=== PATIENT | female | born 1985 | race Caucasian/White ===

== ENCOUNTER 2021-02-05 07:39 | Inpatient (IN) | payer BC, OTHER ==
[2021-02-05] MEDS ORDERED: Sodium Chloride 0.9% 10 ML Syringe FLUSH PRN (08:17)
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
[2021-02-05] MEDS ORDERED: Sodium Chloride 0.9% 2,000 ML IV SCH (08:30)
[2021-02-05 09:06] LABS: CORONAVIRUS COVID-19 NAA NEGATIVE (NEGATIVE)
[2021-02-05 09:55] LABS: HEMOGLOBIN A1C 12.7 %
--- NOTE | 2021-02-05 10:24 | CR ---
Chest: Portable view of the chest was obtained. Comparison: No prior chest x-ray is available. Heart size and mediastinum are normal. Lungs are clear with no acute parenchymal change. No discrete bony abnormality is appreciated. Impression: 1. Nothing acute is seen on portable chest x-ray. Diagnostic code #1
[2021-02-05] MEDS ORDERED: Lactated Ringers 1,000 ML IV ONE ×2 (10:49→12:15)
[2021-02-05] MEDS ORDERED: Sodium Chloride 0.45% with KCl 1,000 ML IV SCH (13:15)
[2021-02-05] MEDS ORDERED: Insulin Regular, Human 100 Units/ML 3 ML Vial IV ONE (13:30)
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
[2021-02-05] MEDS ORDERED: POTASSIUM CHLORIDE IV ONE (14:00)
[2021-02-05] MEDS ORDERED: [UNRECOGNIZED DRUG - OTHER] IV ONE (14:00)
[2021-02-05] MEDS ORDERED: SODIUM BICARBONATE IV ONE (14:00)
[2021-02-05] MEDS: Potassium Chloride 10 MEQ in Premix Bag 1 BAG IV SCH ×5 (17:16→23:13)
[2021-02-05] MEDS: D5 1/2 NS w/ 20 mEq/L KCl 1,000 ML IV SCH ×2 (17:28→22:20)
[2021-02-05] MEDS ORDERED: Potassium Chloride 10 MEQ in Premix Bag 1 BAG IV SCH (19:00)
[2021-02-05] MEDS: Ondansetron 4 MG/2 ML SDV IV PRN (19:17)
--- NOTE | 2021-02-05 19:27 | PCM.PRNOTE ---
- Free Text/Narrative Note: Date: 02/05/2021 Procedure: right femoral central line placement Indication: diabetic ketoacidosis with difficult IV access Surgeon: Malick López MD Detailed Report: Consent was obtained from family. The right groin was prepped and draped in sterile fashion. The right femoral artery was readily palpable. Laterl to this, a dermal wheal was created with 5 cc 1% lidocaine. A large needle and a syringe was used to cannulate the femoral vein and dark venous blood was aspirated on second pass. A guidewire was threaded through the needle with no resistance. The needle was taken out over the wire and a small stab incision made at the insertion site at the skin. A dilator was passed over the wire, and then a tri ple lumen 7F catheter was placed over the wire. The wire was withdrawn and each port flushed and nalini back without issue. The line was secured with a few silk sutures placed at the skin. A sterile dressing was applied. The patient tolerated the procedure well.
[2021-02-06] MEDS: Potassium Chloride 10 MEQ in Premix Bag 1 BAG IV SCH ×17 (00:17→23:34)
[2021-02-06] MEDS ORDERED: Sodium Chloride 0.9% 100 ML ONE (01:20)
[2021-02-06] MEDS ORDERED: Magnesium Sulfate/Water 4 GM in Premix Bag 1 BAG IV ONE ×2 (01:30→03:00)
[2021-02-06] MEDS: Ondansetron 4 MG/2 ML SDV IV PRN ×2 (01:37→10:06)
[2021-02-06] MEDS: D5 1/2 NS w/ 20 mEq/L KCl 1,000 ML IV SCH ×2 (02:25→10:06)
[2021-02-06] MEDS ORDERED: Potassium Chloride 10 MEQ in Premix Bag 1 BAG IV SCH (02:45)
--- NOTE | 2021-02-06 08:51 | PCM.PN ---
- General Info Date of Service: 02/06/21 Admission Dx/Problem (Free Text): Admission Diagnosis/Problem Admission Diagnosis/Problem Diabetic ketoacidosis Subjective Update: Patient is doing much better this morning. VBG still shows a pH of 7.21 with a bicarb of 11, but again improving. She is more alert and oriented today. She denies any pain. She is n.p.o. Functional Status: Reports: Pain Controlled - Review of Systems General: Reports: Weakness, Fatigue Pulmonary: Reports: Shortness of Breath Cardiovascular: Reports: No Symptoms Gastrointestinal: Reports: No Symptoms Musculoskeletal: Reports: No Symptoms Neurological: Reports: No Symptoms - Patient Data Vitals - Most Recent: Last Vital Signs Temp 98.1 F 02/06/21 08:00 Pulse 89 02/06/21 07:00 Resp 18 02/06/21 08:01 BP 115/66 02/06/21 08:01 Pulse Ox 100 02/06/21 08:01 Weight - Most Recent: 171 lb 6.4 oz I&O - Last 24 Hours: Intake & Output 02/05/21 02/06/21 02/06/21 22:59 06:59 14:59 Intake Total 1676 2920 Output Total 2905 2275 Balance -1229 645 Lab Results Last 24 Hours: Laboratory Results - last 24 hr 02/05/21 02/05/21 02/05/21 Range/Units 08:00 08:00 08:17 WBC 13.54 H (3.98-10.04) K/mm3 RBC 5.61 H (3.98-5.22) M/mm3 Hgb 15.1 D (11.2-15.7) gm/dl Hct 44.8 (34.1-44.9) % MCV 79.9 (79.4-94.8) fl MCH 26.9 (25.6-32.2) pg MCHC 33.7 (32.2-35.5) g/dl RDW Std Deviation 47.3 H (36.4-46.3) fL Plt Count 160 L (182-369) K/mm3 MPV 10.9 (9.4-12.3) fl Neut % (Auto) 77.9 H (34.0-71.1) % Lymph % (Auto) 11.9 L (19.3-51.7) % [place] % (Auto) 7.9 (4.7-12.5) % Eos % (Auto) 0.3 L (0.7-5.8) Baso % (Auto) 0.5 (0.1-1.2) % Neut # (Auto) 10.55 H (1.56-6.13) K/mm3 Lymph # (Auto) 1.61 (1.18-3.74) K/mm3 [place] # (Auto) 1.07 H (0.24-0.36) K/mm3 Eos # (Auto) 0.04 (0.04-0.36) K/mm3 Baso # (Auto) 0.07 (0.01-0.08) K/mm3 Puncture Site ABG pH (7.35-7.45) ABG pCO2 (35.0-45.0) mmHg ABG pO2 (80.0-100.0) mmHg ABG HCO3 (22.0-26.0) meq/L ABG O2 Saturation (96.0-97.0) % ABG Base Excess (-2-2.0) Rashid Test VBG pH (7.30-7.40) VBG pCO2 (41-51) mmHg VBG pO2 (40-80) mmHG VBG HCO3 (22-26) meq/L VBG O2 Saturation VBG Base Excess (-4.0-2.0) O2 Delivery Device Sodium 135 L (136-145) mEq/L Potassium 3.9 (3.5-5.1) mEq/L Chloride 101 (98-107) mEq/L Carbon Dioxide 5 L* (21-32) mEq/L Anion Gap 32.9 H (5-15) BUN 15 (7-18) mg/dL Creatinine 1.0 (0.55-1.02) mg/dL Est Cr Clr Drug Dosing 70.66 mL/min Estimated GFR (MDRD) > 60 (>60) mL/min BUN/Creatinine Ratio 15.0 (14-18) Glucose 421 H* (70-99) mg/dL POC Glucose (70-99) mg/dL Hemoglobin A1c ( - 5.6) % Serum Osmolality 314 H (280-300) mosm/kg Calcium 8.6 (8.5-10.1) mg/dL Phosphorus (2.6-4.7) mg/dL Magnesium 2.2 (1.8-2.4) mg/dL Total Bilirubin 0.4 (0.2-1.0) mg/dL AST 16 (15-37) U/L ALT 20 (14-59) U/L Alkaline Phosphatase 164 H (46-116) U/L Total Protein 7.8 (6.4-8.2) g/dl Albumin 4.4 (3.4-5.0) g/dl Globulin 3.4 gm/dL Albumin/Globulin Ratio 1.3 (1-2) TSH 3rd Generation (0.358-3.74) uIU/mL Urine Color (Yellow) Urine Appearance (Clear) Urine pH (5.0-8.0) Ur Specific [place] (1.005-1.030) Urine Protein (Negative) Urine Glucose (UA) (Negative) Urine Ketones (Negative) Urine Occult Blood (Negative) Urine Nitrite (Negative) Urine Bilirubin (Negative) Urine Urobilinogen (0.2-1.0) Ur Leukocyte Esterase (Negative) Urine RBC (0-5) /hpf Urine WBC (0-5) /hpf Ur Squamous Epith Cells (0-5) /hpf Urine Bacteria (FEW) /hpf Urine Mucus (FEW) /hpf Urine Opiates Screen (BGYAIG=604) Ur Buprenorphine Scrn (CUTOFF=10) Ur Oxycodone Screen (CWK6BU=154) Urine Methadone Screen (QBSMYZ=998) Ur Propoxyphene Screen (EETSYZ=052) Ur Barbiturates Screen (IIEPGU=510) Ur Tricyclics Screen (HORDWC=399) Ur Phencyclidine Scrn (CUTOFF=25) Ur Amphetamine Screen (NKAQBB=389) U Methamphetamines Scrn (QDPOHW=782) U Benzodiazepines Scrn (QDUSGT=943) U Cocaine Metab Screen (BVIYTL=844) U Marijuana (THC) Screen (CUTOFF=50) Ketones 11.22 (0.0-0.3) mM Influenza Type A RNA (NEGATIVE) RSV RNA (INAAT) (NEGATIVE) Influenza Type B RNA (NEGATIVE) SARS-CoV-2 RNA (ELIDIA) (NEGATIVE) 02/05/21 02/05/21 02/05/21 Range/Units 08:24 08:34 09:49 WBC (3.98-10.04) K/mm3 RBC (3.98-5.22) M/mm3 Hgb (11.2-15.7) gm/dl Hct (34.1-44.9) % MCV (79.4-94.8) fl MCH (25.6-32.2) pg MCHC (32.2-35.5) g/dl RDW Std Deviation (36.4-46.3) fL Plt Count (182-369) K/mm3 MPV (9.4-12.3) fl Neut % (Auto) (34.0-71.1) % Lymph % (Auto) (19.3-51.7) % [place] % (Auto) (4.7-12.5) % Eos % (Auto) (0.7-5.8) Baso % (Auto) (0.1-1.2) % Neut # (Auto) (1.56-6.13) K/mm3 Lymph # (Auto) (1.18-3.74) K/mm3 [place] # (Auto) (0.24-0.36) K/mm3 Eos # (Auto) (0.04-0.36) K/mm3 Baso # (Auto) (0.01-0.08) K/mm3 Puncture Site Rt radial ABG pH 6.91 L* (7.35-7.45) ABG pCO2 7.4 L* (35.0-45.0) mmHg ABG pO2 129.0 H (80.0-100.0) mmHg ABG HCO3 1.4 L (22.0-26.0) meq/L ABG O2 Saturation 98.0 H (96.0-97.0) % ABG Base Excess -34.0 L (-2-2.0) Rashid Test Positive VBG pH (7.30-7.40) VBG pCO2 (41-51) mmHg VBG pO2 (40-80) mmHG VBG HCO3 (22-26) meq/L VBG O2 Saturation VBG Base Excess (-4.0-2.0) O2 Delivery Device Room air Sodium (136-145) mEq/L Potassium (3.5-5.1) mEq/L Chloride (98-107) mEq/L Carbon Dioxide (21-32) mEq/L Anion Gap (5-15) BUN (7-18) mg/dL Creatinine (0.55-1.02) mg/dL Est Cr Clr Drug Dosing mL/min Estimated GFR (MDRD) (>60) mL/min BUN/Creatinine Ratio (14-18) Glucose (70-99) mg/dL POC Glucose (70-99) mg/dL Hemoglobin A1c 12.7 H ( - 5.6) % Serum Osmolality (280-300) mosm/kg Calcium (8.5-10.1) mg/dL Phosphorus (2.6-4.7) mg/dL Magnesium (1.8-2.4) mg/dL Total Bilirubin (0.2-1.0) mg/dL AST (15-37) U/L ALT (14-59) U/L Alkaline Phosphatase (46-116) U/L Total Protein (6.4-8.2) g/dl Albumin (3.4-5.0) g/dl Globulin gm/dL Albumin/Globulin Ratio (1-2) TSH 3rd Generation (0.358-3.74) uIU/mL Urine Color (Yellow) Urine Appearance (Clear) Urine pH (5.0-8.0) Ur Specific [place] (1.005-1.030) Urine Protein (Negative) Urine Glucose (UA) (Negative) Urine Ketones (Negative) Urine Occult Blood (Negative) Urine Nitrite (Negative) Urine Bilirubin (Negative) Urine Urobilinogen (0.2-1.0) Ur Leukocyte Esterase (Negative) Urine RBC (0-5) /hpf Urine WBC (0-5) /hpf Ur Squamous Epith Cells (0-5) /hpf Urine Bacteria (FEW) /hpf Urine Mucus (FEW) /hpf Urine Opiates Screen (TSNCPK=205) Ur Buprenorphine Scrn (CUTOFF=10) Ur Oxycodone Screen (LDI5NO=109) Urine Methadone Screen (VMXDNI=861) Ur Propoxyphene Screen (BMOSEZ=746) Ur Barbiturates Screen (NEMAEE=124) Ur Tricyclics Screen (WGZTAY=060) Ur Phencyclidine Scrn (CUTOFF=25) Ur Amphetamine Screen (MPDRJI=464) U Methamphetamines Scrn (PWWRFP=109) U Benzodiazepines Scrn (RVJDLP=438) U Cocaine Metab Screen (QIQNGD=912) U Marijuana (THC) Screen (CUTOFF=50) Ketones (0.0-0.3) mM Influenza Type A RNA Negative (NEGATIVE) RSV RNA (INAAT) Negative (NEGATIVE) Influenza Type B RNA Negative (NEGATIVE) SARS-CoV-2 RNA (ELIDIA) Negative (NEGATIVE) 02/05/21 02/05/21 02/05/21 Range/Units 10:15 10:15 10:55 WBC (3.98-10.04) K/mm3 RBC (3.98-5.22) M/mm3 Hgb (11.2-15.7) gm/dl Hct (34.1-44.9) % MCV (79.4-94.8) fl MCH (25.6-32.2) pg MCHC (32.2-35.5) g/dl RDW Std Deviation (36.4-46.3) fL Plt Count (182-369) K/mm3 MPV (9.4-12.3) fl Neut % (Auto) (34.0-71.1) % Lymph % (Auto) (19.3-51.7) % [place] % (Auto) (4.7-12.5) % Eos % (Auto) (0.7-5.8) Baso % (Auto) (0.1-1.2) % Neut # (Auto) (1.56-6.13) K/mm3 Lymph # (Auto) (1.18-3.74) K/mm3 [place] # (Auto) (0.24-0.36) K/mm3 Eos # (Auto) (0.04-0.36) K/mm3 Baso # (Auto) (0.01-0.08) K/mm3 Puncture Site ABG pH (7.35-7.45) ABG pCO2 (35.0-45.0) mmHg ABG pO2 (80.0-100.0) mmHg ABG HCO3 (22.0-26.0) meq/L ABG O2 Saturation (96.0-97.0) % ABG Base Excess (-2-2.0) Rashid Test VBG pH (7.30-7.40) VBG pCO2 (41-51) mmHg VBG pO2 (40-80) mmHG VBG HCO3 (22-26) meq/L VBG O2 Saturation VBG Base Excess (-4.0-2.0) O2 Delivery Device Sodium (136-145) mEq/L Potassium (3.5-5.1) mEq/L Chloride (98-107) mEq/L Carbon Dioxide (21-32) mEq/L Anion Gap (5-15) BUN (7-18) mg/dL Creatinine (0.55-1.02) mg/dL Est Cr Clr Drug Dosing mL/min Estimated GFR (MDRD) (>60) mL/min BUN/Creatinine Ratio (14-18) Glucose (70-99) mg/dL POC Glucose 336 H (70-99) mg/dL Hemoglobin A1c ( - 5.6) % Serum Osmolality (280-300) mosm/kg Calcium (8.5-10.1) mg/dL Phosphorus (2.6-4.7) mg/dL Magnesium (1.8-2.4) mg/dL Total Bilirubin (0.2-1.0) mg/dL AST (15-37) U/L ALT (14-59) U/L Alkaline Phosphatase (46-116) U/L Total Protein (6.4-8.2) g/dl Albumin (3.4-5.0) g/dl Globulin gm/dL Albumin/Globulin Ratio (1-2) TSH 3rd Generation (0.358-3.74) uIU/mL Urine Color Yellow (Yellow) Urine Appearance Clear (Clear) Urine pH 5.5 (5.0-8.0) Ur Specific [place] > or = 1.030 (1.005-1.030) Urine Protein 2+ H (Negative) Urine Glucose (UA) 2+ H (Negative) Urine Ketones 4+ H (Negative) Urine Occult Blood 2+ H (Negative) Urine Nitrite Negative (Negative) Urine Bilirubin Negative (Negative) Urine Urobilinogen 0.2 (0.2-1.0) Ur Leukocyte Esterase Negative (Negative) Urine RBC 5-10 H (0-5) /hpf Urine WBC 0-5 (0-5) /hpf Ur Squamous Epith Cells 0-5 (0-5) /hpf Urine Bacteria Moderate H (FEW) /hpf Urine Mucus Few (FEW) /hpf Urine Opiates Screen Negative (LJQETY=668) Ur Buprenorphine Scrn Negative (CUTOFF=10) Ur Oxycodone Screen Negative (QIQ7LP=684) Urine Methadone Screen Negative (IYDPED=220) Ur Propoxyphene Screen Negative (WPRECY=242) Ur Barbiturates Screen Negative (GJNZMP=748) Ur Tricyclics Screen Negative (MBFHQP=991) Ur Phencyclidine Scrn Negative (CUTOFF=25) Ur Amphetamine Screen Negative (FCWWNM=674) U Methamphetamines Scrn Negative (RDTDQT=918) U Benzodiazepines Scrn Negative (MESHGR=695) U Cocaine Metab Screen Negative (VKFBDW=086) U Marijuana (THC) Screen Negative (CUTOFF=50) Ketones (0.0-0.3) mM Influenza Type A RNA (NEGATIVE) RSV RNA (INAAT) (NEGATIVE) Influenza Type B RNA (NEGATIVE) SARS-CoV-2 RNA (ELIDIA) (NEGATIVE) 02/05/21 02/05/21 02/05/21 Range/Units 12:14 13:39 13:39 WBC (3.98-10.04) K/mm3 RBC (3.98-5.22) M/mm3 Hgb (11.2-15.7) gm/dl Hct (34.1-44.9) % MCV (79.4-94.8) fl MCH (25.6-32.2) pg MCHC (32.2-35.5) g/dl RDW Std Deviation (36.4-46.3) fL Plt Count (182-369) K/mm3 MPV (9.4-12.3) fl Neut % (Auto) (34.0-71.1) % Lymph % (Auto) (19.3-51.7) % [place] % (Auto) (4.7-12.5) % Eos % (Auto) (0.7-5.8) Baso % (Auto) (0.1-1.2) % Neut # (Auto) (1.56-6.13) K/mm3 Lymph # (Auto) (1.18-3.74) K/mm3 [place] # (Auto) (0.24-0.36) K/mm3 Eos # (Auto) (0.04-0.36) K/mm3 Baso # (Auto) (0.01-0.08) K/mm3 Puncture Site ABG pH (7.35-7.45) ABG pCO2 (35.0-45.0) mmHg ABG pO2 (80.0-100.0) mmHg ABG HCO3 (22.0-26.0) meq/L ABG O2 Saturation (96.0-97.0) % ABG Base Excess (-2-2.0) Rashid Test VBG pH 6.88 L (7.30-7.40) VBG pCO2 (41-51) mmHg VBG pO2 (40-80) mmHG VBG HCO3 (22-26) meq/L VBG O2 Saturation VBG Base Excess (-4.0-2.0) O2 Delivery Device Sodium 135 L (136-145) mEq/L Potassium 3.5 (3.5-5.1) mEq/L Chloride 106 (98-107) mEq/L Carbon Dioxide 3 L* (21-32) mEq/L Anion Gap 29.5 H (5-15) BUN 13 (7-18) mg/dL Creatinine 0.8 (0.55-1.02) mg/dL Est Cr Clr Drug Dosing 88.32 mL/min Estimated GFR (MDRD) > 60 (>60) mL/min BUN/Creatinine Ratio 16.3 (14-18) Glucose 349 H (70-99) mg/dL POC Glucose 326 H (70-99) mg/dL Hemoglobin A1c ( - 5.6) % Serum Osmolality (280-300) mosm/kg Calcium 7.2 L (8.5-10.1) mg/dL Phosphorus 2.8 (2.6-4.7) mg/dL Magnesium 1.8 (1.8-2.4) mg/dL Total Bilirubin (0.2-1.0) mg/dL AST (15-37) U/L ALT (14-59) U/L Alkaline Phosphatase (46-116) U/L Total Protein (6.4-8.2) g/dl Albumin (3.4-5.0) g/dl Globulin gm/dL Albumin/Globulin Ratio (1-2) TSH 3rd Generation (0.358-3.74) uIU/mL Urine Color (Yellow) Urine Appearance (Clear) Urine pH (5.0-8.0) Ur Specific [place] (1.005-1.030) Urine Protein (Negative) Urine Glucose (UA) (Negative) Urine Ketones (Negative) Urine Occult Blood (Negative) Urine Nitrite (Negative) Urine Bilirubin (Negative) Urine Urobilinogen (0.2-1.0) Ur Leukocyte Esterase (Negative) Urine RBC (0-5) /hpf Urine WBC (0-5) /hpf Ur Squamous Epith Cells (0-5) /hpf Urine Bacteria (FEW) /hpf Urine Mucus (FEW) /hpf Urine Opiates Screen (YTANQZ=610) Ur Buprenorphine Scrn (CUTOFF=10) Ur Oxycodone Screen (GCO1MZ=028) Urine Methadone Screen (CJXKTD=938) Ur Propoxyphene Screen (ETHQYI=440) Ur Barbiturates Screen (BZZUFJ=969) Ur Tricyclics Screen (SJIIZN=999) Ur Phencyclidine Scrn (CUTOFF=25) Ur Amphetamine Screen (VURCTE=333) U Methamphetamines Scrn (NODEMY=255) U Benzodiazepines Scrn (SUMRXH=249) U Cocaine Metab Screen (NBKART=802) U Marijuana (THC) Screen (CUTOFF=50) Ketones (0.0-0.3) mM Influenza Type A RNA (NEGATIVE) RSV RNA (INAAT) (NEGATIVE) Influenza Type B RNA (NEGATIVE) SARS-CoV-2 RNA (ELIDIA) (NEGATIVE) 02/05/21 02/05/21 02/05/21 Range/Units 14:36 16:01 17:03 WBC (3.98-10.04) K/mm3 RBC (3.98-5.22) M/mm3 Hgb (11.2-15.7) gm/dl Hct (34.1-44.9) % MCV (79.4-94.8) fl MCH (25.6-32.2) pg MCHC (32.2-35.5) g/dl RDW Std Deviation (36.4-46.3) fL Plt Count (182-369) K/mm3 MPV (9.4-12.3) fl Neut % (Auto) (34.0-71.1) % Lymph % (Auto) (19.3-51.7) % [place] % (Auto) (4.7-12.5) % Eos % (Auto) (0.7-5.8) Baso % (Auto) (0.1-1.2) % Neut # (Auto) (1.56-6.13) K/mm3 Lymph # (Auto) (1.18-3.74) K/mm3 [place] # (Auto) (0.24-0.36) K/mm3 Eos # (Auto) (0.04-0.36) K/mm3 Baso # (Auto) (0.01-0.08) K/mm3 Puncture Site ABG pH (7.35-7.45) ABG pCO2 (35.0-45.0) mmHg ABG pO2 (80.0-100.0) mmHg ABG HCO3 (22.0-26.0) meq/L ABG O2 Saturation (96.0-97.0) % ABG Base Excess (-2-2.0) Rashid Test VBG pH (7.30-7.40) VBG pCO2 (41-51) mmHg VBG pO2 (40-80) mmHG VBG HCO3 (22-26) meq/L VBG O2 Saturation VBG Base Excess (-4.0-2.0) O2 Delivery Device Sodium (136-145) mEq/L Potassium (3.5-5.1) mEq/L Chloride (98-107) mEq/L Carbon Dioxide (21-32) mEq/L Anion Gap (5-15) BUN (7-18) mg/dL Creatinine (0.55-1.02) mg/dL Est Cr Clr Drug Dosing mL/min Estimated GFR (MDRD) (>60) mL/min BUN/Creatinine Ratio (14-18) Glucose (70-99) mg/dL POC Glucose 302 H 228 H 171 H (70-99) mg/dL Hemoglobin A1c ( - 5.6) % Serum Osmolality (280-300) mosm/kg Calcium (8.5-10.1) mg/dL Phosphorus (2.6-4.7) mg/dL Magnesium (1.8-2.4) mg/dL Total Bilirubin (0.2-1.0) mg/dL AST (15-37) U/L ALT (14-59) U/L Alkaline Phosphatase (46-116) U/L Total Protein (6.4-8.2) g/dl Albumin (3.4-5.0) g/dl Globulin gm/dL Albumin/Globulin Ratio (1-2) TSH 3rd Generation (0.358-3.74) uIU/mL Urine Color (Yellow) Urine Appearance (Clear) Urine pH (5.0-8.0) Ur Specific [place] (1.005-1.030) Urine Protein (Negative) Urine Glucose (UA) (Negative) Urine Ketones (Negative) Urine Occult Blood (Negative) Urine Nitrite (Negative) Urine Bilirubin (Negative) Urine Urobilinogen (0.2-1.0) Ur Leukocyte Esterase (Negative) Urine RBC (0-5) /hpf Urine WBC (0-5) /hpf Ur Squamous Epith Cells (0-5) /hpf Urine Bacteria (FEW) /hpf Urine Mucus (FEW) /hpf Urine Opiates Screen (DLRSSC=458) Ur Buprenorphine Scrn (CUTOFF=10) Ur Oxycodone Screen (NNS5CF=004) Urine Methadone Screen (KGKHAE=214) Ur Propoxyphene Screen (HDCXWD=030) Ur Barbiturates Screen (VWFMWH=714) Ur Tricyclics Screen (TBCACF=874) Ur Phencyclidine Scrn (CUTOFF=25) Ur Amphetamine Screen (EBTDMC=867) U Methamphetamines Scrn (RDAIKV=474) U Benzodiazepines Scrn (LXFMDU=671) U Cocaine Metab Screen (RWSKUE=833) U Marijuana (THC) Screen (CUTOFF=50) Ketones (0.0-0.3) mM Influenza Type A RNA (NEGATIVE) RSV RNA (INAAT) (NEGATIVE) Influenza Type B RNA (NEGATIVE) SARS-CoV-2 RNA (ELIDIA) (NEGATIVE) 02/05/21 02/05/21 02/05/21 Range/Units 17:22 17:54 17:54 WBC (3.98-10.04) K/mm3 RBC (3.98-5.22) M/mm3 Hgb (11.2-15.7) gm/dl Hct (34.1-44.9) % MCV (79.4-94.8) fl MCH (25.6-32.2) pg MCHC (32.2-35.5) g/dl RDW Std Deviation (36.4-46.3) fL Plt Count (182-369) K/mm3 MPV (9.4-12.3) fl Neut % (Auto) (34.0-71.1) % Lymph % (Auto) (19.3-51.7) % [place] % (Auto) (4.7-12.5) % Eos % (Auto) (0.7-5.8) Baso % (Auto) (0.1-1.2) % Neut # (Auto) (1.56-6.13) K/mm3 Lymph # (Auto) (1.18-3.74) K/mm3 [place] # (Auto) (0.24-0.36) K/mm3 Eos # (Auto) (0.04-0.36) K/mm3 Baso # (Auto) (0.01-0.08) K/mm3 Puncture Site ABG pH (7.35-7.45) ABG pCO2 (35.0-45.0) mmHg ABG pO2 (80.0-100.0) mmHg ABG HCO3 (22.0-26.0) meq/L ABG O2 Saturation (96.0-97.0) % ABG Base Excess (-2-2.0) Rashid Test VBG pH 7.04 L (7.30-7.40) VBG pCO2 (41-51) mmHg VBG pO2 (40-80) mmHG VBG HCO3 (22-26) meq/L VBG O2 Saturation VBG Base Excess (-4.0-2.0) O2 Delivery Device Sodium 140 (136-145) mEq/L Potassium 2.8 L (3.5-5.1) mEq/L Chloride 107 (98-107) mEq/L Carbon Dioxide 5 L* (21-32) mEq/L Anion Gap 30.8 H (5-15) BUN 12 (7-18) mg/dL Creatinine 0.8 (0.55-1.02) mg/dL Est Cr Clr Drug Dosing 88.32 mL/min Estimated GFR (MDRD) > 60 (>60) mL/min BUN/Creatinine Ratio 15.0 (14-18) Glucose 182 H (70-99) mg/dL POC Glucose 161 H (70-99) mg/dL Hemoglobin A1c ( - 5.6) % Serum Osmolality (280-300) mosm/kg Calcium 7.6 L (8.5-10.1) mg/dL Phosphorus (2.6-4.7) mg/dL Magnesium 1.8 (1.8-2.4) mg/dL Total Bilirubin (0.2-1.0) mg/dL AST (15-37) U/L ALT (14-59) U/L Alkaline Phosphatase (46-116) U/L Total Protein (6.4-8.2) g/dl Albumin (3.4-5.0) g/dl Globulin gm/dL Albumin/Globulin Ratio (1-2) TSH 3rd Generation (0.358-3.74) uIU/mL Urine Color (Yellow) Urine Appearance (Clear) Urine pH (5.0-8.0) Ur Specific [place] (1.005-1.030) Urine Protein (Negative) Urine Glucose (UA) (Negative) Urine Ketones (Negative) Urine Occult Blood (Negative) Urine Nitrite (Negative) Urine Bilirubin (Negative) Urine Urobilinogen (0.2-1.0) Ur Leukocyte Esterase (Negative) Urine RBC (0-5) /hpf Urine WBC (0-5) /hpf Ur Squamous Epith Cells (0-5) /hpf Urine Bacteria (FEW) /hpf Urine Mucus (FEW) /hpf Urine Opiates Screen (QTJDYV=726) Ur Buprenorphine Scrn (CUTOFF=10) Ur Oxycodone Screen (SKE9ZW=946) Urine Methadone Screen (KMYELH=078) Ur Propoxyphene Screen (RFSIVB=959) Ur Barbiturates Screen (XJOXDV=571) Ur Tricyclics Screen (SVINWX=886) Ur Phencyclidine Scrn (CUTOFF=25) Ur Amphetamine Screen (MMKQFN=192) U Methamphetamines Scrn (CAGGRX=769) U Benzodiazepines Scrn (CSNRLE=707) U Cocaine Metab Screen (TFNQQT=157) U Marijuana (THC) Screen (CUTOFF=50) Ketones (0.0-0.3) mM Influenza Type A RNA (NEGATIVE) RSV RNA (INAAT) (NEGATIVE) Influenza Type B RNA (NEGATIVE) SARS-CoV-2 RNA (ELIDIA) (NEGATIVE) 02/05/21 02/05/21 02/05/21 Range/Units 18:54 20:03 21:08 WBC (3.98-10.04) K/mm3 RBC (3.98-5.22) M/mm3 Hgb (11.2-15.7) gm/dl Hct (34.1-44.9) % MCV (79.4-94.8) fl MCH (25.6-32.2) pg MCHC (32.2-35.5) g/dl RDW Std Deviation (36.4-46.3) fL Plt Count (182-369) K/mm3 MPV (9.4-12.3) fl Neut % (Auto) (34.0-71.1) % Lymph % (Auto) (19.3-51.7) % [place] % (Auto) (4.7-12.5) % Eos % (Auto) (0.7-5.8) Baso % (Auto) (0.1-1.2) % Neut # (Auto) (1.56-6.13) K/mm3 Lymph # (Auto) (1.18-3.74) K/mm3 [place] # (Auto) (0.24-0.36) K/mm3 Eos # (Auto) (0.04-0.36) K/mm3 Baso # (Auto) (0.01-0.08) K/mm3 Puncture Site ABG pH (7.35-7.45) ABG pCO2 (35.0-45.0) mmHg ABG pO2 (80.0-100.0) mmHg ABG HCO3 (22.0-26.0) meq/L ABG O2 Saturation (96.0-97.0) % ABG Base Excess (-2-2.0) Rashid Test VBG pH (7.30-7.40) VBG pCO2 (41-51) mmHg VBG pO2 (40-80) mmHG VBG HCO3 (22-26) meq/L VBG O2 Saturation VBG Base Excess (-4.0-2.0) O2 Delivery Device Sodium (136-145) mEq/L Potassium (3.5-5.1) mEq/L Chloride (98-107) mEq/L Carbon Dioxide (21-32) mEq/L Anion Gap (5-15) BUN (7-18) mg/dL Creatinine (0.55-1.02) mg/dL Est Cr Clr Drug Dosing mL/min Estimated GFR (MDRD) (>60) mL/min BUN/Creatinine Ratio (14-18) Glucose (70-99) mg/dL POC Glucose 171 H 206 H 223 H (70-99) mg/dL Hemoglobin A1c ( - 5.6) % Serum Osmolality (280-300) mosm/kg Calcium (8.5-10.1) mg/dL Phosphorus (2.6-4.7) mg/dL Magnesium (1.8-2.4) mg/dL Total Bilirubin (0.2-1.0) mg/dL AST (15-37) U/L ALT (14-59) U/L Alkaline Phosphatase (46-116) U/L Total Protein (6.4-8.2) g/dl Albumin (3.4-5.0) g/dl Globulin gm/dL Albumin/Globulin Ratio (1-2) TSH 3rd Generation (0.358-3.74) uIU/mL Urine Color (Yellow) Urine Appearance (Clear) Urine pH (5.0-8.0) Ur Specific [place] (1.005-1.030) Urine Protein (Negative) Urine Glucose (UA) (Negative) Urine Ketones (Negative) Urine Occult Blood (Negative) Urine Nitrite (Negative) Urine Bilirubin (Negative) Urine Urobilinogen (0.2-1.0) Ur Leukocyte Esterase (Negative) Urine RBC (0-5) /hpf Urine WBC (0-5) /hpf Ur Squamous Epith Cells (0-5) /hpf Urine Bacteria (FEW) /hpf Urine Mucus (FEW) /hpf Urine Opiates Screen (XZCLFH=310) Ur Buprenorphine Scrn (CUTOFF=10) Ur Oxycodone Screen (BZY9NN=381) Urine Methadone Screen (UCMXDE=766) Ur Propoxyphene Screen (HRBYIP=197) Ur Barbiturates Screen (MKNEUB=708) Ur Tricyclics Screen (UWQSHM=667) Ur Phencyclidine Scrn (CUTOFF=25) Ur Amphetamine Screen (RZIIBM=477) U Methamphetamines Scrn (DVRVQG=496) U Benzodiazepines Scrn (HKSXPE=910) U Cocaine Metab Screen (VGEPYC=992) U Marijuana (THC) Screen (CUTOFF=50) Ketones (0.0-0.3) mM Influenza Type A RNA (NEGATIVE) RSV RNA (INAAT) (NEGATIVE) Influenza Type B RNA (NEGATIVE) SARS-CoV-2 RNA (ELIDIA) (NEGATIVE) 02/05/21 02/05/21 02/05/21 Range/Units 21:37 22:07 23:03 WBC (3.98-10.04) K/mm3 RBC (3.98-5.22) M/mm3 Hgb (11.2-15.7) gm/dl Hct (34.1-44.9) % MCV (79.4-94.8) fl MCH (25.6-32.2) pg MCHC (32.2-35.5) g/dl RDW Std Deviation (36.4-46.3) fL Plt Count (182-369) K/mm3 MPV (9.4-12.3) fl Neut % (Auto) (34.0-71.1) % Lymph % (Auto) (19.3-51.7) % [place] % (Auto) (4.7-12.5) % Eos % (Auto) (0.7-5.8) Baso % (Auto) (0.1-1.2) % Neut # (Auto) (1.56-6.13) K/mm3 Lymph # (Auto) (1.18-3.74) K/mm3 [place] # (Auto) (0.24-0.36) K/mm3 Eos # (Auto) (0.04-0.36) K/mm3 Baso # (Auto) (0.01-0.08) K/mm3 Puncture Site ABG pH (7.35-7.45) ABG pCO2 (35.0-45.0) mmHg ABG pO2 (80.0-100.0) mmHg ABG HCO3 (22.0-26.0) meq/L ABG O2 Saturation (96.0-97.0) % ABG Base Excess (-2-2.0) Rashid Test VBG pH (7.30-7.40) VBG pCO2 (41-51) mmHg VBG pO2 (40-80) mmHG VBG HCO3 (22-26) meq/L VBG O2 Saturation VBG Base Excess (-4.0-2.0) O2 Delivery Device Sodium 137 (136-145) mEq/L Potassium 3.1 L (3.5-5.1) mEq/L Chloride 109 H (98-107) mEq/L Carbon Dioxide 6 L* (21-32) mEq/L Anion Gap 25.1 H (5-15) BUN 10 (7-18) mg/dL Creatinine 0.7 (0.55-1.02) mg/dL Est Cr Clr Drug Dosing 100.94 mL/min Estimated GFR (MDRD) > 60 (>60) mL/min BUN/Creatinine Ratio 14.3 (14-18) Glucose 256 H (70-99) mg/dL POC Glucose 243 H 240 H (70-99) mg/dL Hemoglobin A1c ( - 5.6) % Serum Osmolality (280-300) mosm/kg Calcium 7.2 L (8.5-10.1) mg/dL Phosphorus (2.6-4.7) mg/dL Magnesium 1.6 L (1.8-2.4) mg/dL Total Bilirubin (0.2-1.0) mg/dL AST (15-37) U/L ALT (14-59) U/L Alkaline Phosphatase (46-116) U/L Total Protein (6.4-8.2) g/dl Albumin (3.4-5.0) g/dl Globulin gm/dL Albumin/Globulin Ratio (1-2) TSH 3rd Generation (0.358-3.74) uIU/mL Urine Color (Yellow) Urine Appearance (Clear) Urine pH (5.0-8.0) Ur Specific [place] (1.005-1.030) Urine Protein (Negative) Urine Glucose (UA) (Negative) Urine Ketones (Negative) Urine Occult Blood (Negative) Urine Nitrite (Negative) Urine Bilirubin (Negative) Urine Urobilinogen (0.2-1.0) Ur Leukocyte Esterase (Negative) Urine RBC (0-5) /hpf Urine WBC (0-5) /hpf Ur Squamous Epith Cells (0-5) /hpf Urine Bacteria (FEW) /hpf Urine Mucus (FEW) /hpf Urine Opiates Screen (ZYKPAK=590) Ur Buprenorphine Scrn (CUTOFF=10) Ur Oxycodone Screen (DBX6DI=047) Urine Methadone Screen (ZQXXPT=571) Ur Propoxyphene Screen (SAEIMP=254) Ur Barbiturates Screen (HNVOVH=705) Ur Tricyclics Screen (HJZWWF=709) Ur Phencyclidine Scrn (CUTOFF=25) Ur Amphetamine Screen (ZKHQSM=964) U Methamphetamines Scrn (ATSSRN=319) U Benzodiazepines Scrn (BJEQOV=626) U Cocaine Metab Screen (CMWCBF=347) U Marijuana (THC) Screen (CUTOFF=50) Ketones (0.0-0.3) mM Influenza Type A RNA (NEGATIVE) RSV RNA (INAAT) (NEGATIVE) Influenza Type B RNA (NEGATIVE) SARS-CoV-2 RNA (ELIDIA) (NEGATIVE) 02/05/21 02/06/21 02/06/21 Range/Units 23:57 01:01 01:26 WBC (3.98-10.04) K/mm3 RBC (3.98-5.22) M/mm3 Hgb (11.2-15.7) gm/dl Hct (34.1-44.9) % MCV (79.4-94.8) fl MCH (25.6-32.2) pg MCHC (32.2-35.5) g/dl RDW Std Deviation (36.4-46.3) fL Plt Count (182-369) K/mm3 MPV (9.4-12.3) fl Neut % (Auto) (34.0-71.1) % Lymph % (Auto) (19.3-51.7) % [place] % (Auto) (4.7-12.5) % Eos % (Auto) (0.7-5.8) Baso % (Auto) (0.1-1.2) % Neut # (Auto) (1.56-6.13) K/mm3 Lymph # (Auto) (1.18-3.74) K/mm3 [place] # (Auto) (0.24-0.36) K/mm3 Eos # (Auto) (0.04-0.36) K/mm3 Baso # (Auto) (0.01-0.08) K/mm3 Puncture Site ABG pH (7.35-7.45) ABG pCO2 (35.0-45.0) mmHg ABG pO2 (80.0-100.0) mmHg ABG HCO3 (22.0-26.0) meq/L ABG O2 Saturation (96.0-97.0) % ABG Base Excess (-2-2.0) Rashid Test VBG pH (7.30-7.40) VBG pCO2 (41-51) mmHg VBG pO2 (40-80) mmHG VBG HCO3 (22-26) meq/L VBG O2 Saturation VBG Base Excess (-4.0-2.0) O2 Delivery Device Sodium 136 (136-145) mEq/L Potassium 2.8 L (3.5-5.1) mEq/L Chloride 110 H (98-107) mEq/L Carbon Dioxide 9 L (21-32) mEq/L Anion Gap 19.8 H (5-15) BUN 9 (7-18) mg/dL Creatinine 0.8 (0.55-1.02) mg/dL Est Cr Clr Drug Dosing 88.32 mL/min Estimated GFR (MDRD) > 60 (>60) mL/min BUN/Creatinine Ratio 11.3 L (14-18) Glucose 279 H (70-99) mg/dL POC Glucose 252 H 244 H (70-99) mg/dL Hemoglobin A1c ( - 5.6) % Serum Osmolality (280-300) mosm/kg Calcium 7.3 L (8.5-10.1) mg/dL Phosphorus (2.6-4.7) mg/dL Magnesium 1.5 L (1.8-2.4) mg/dL Total Bilirubin (0.2-1.0) mg/dL AST (15-37) U/L ALT (14-59) U/L Alkaline Phosphatase (46-116) U/L Total Protein (6.4-8.2) g/dl Albumin (3.4-5.0) g/dl Globulin gm/dL Albumin/Globulin Ratio (1-2) TSH 3rd Generation (0.358-3.74) uIU/mL Urine Color (Yellow) Urine Appearance (Clear) Urine pH (5.0-8.0) Ur Specific [place] (1.005-1.030) Urine Protein (Negative) Urine Glucose (UA) (Negative) Urine Ketones (Negative) Urine Occult Blood (Negative) Urine Nitrite (Negative) Urine Bilirubin (Negative) Urine Urobilinogen (0.2-1.0) Ur Leukocyte Esterase (Negative) Urine RBC (0-5) /hpf Urine WBC (0-5) /hpf Ur Squamous Epith Cells (0-5) /hpf Urine Bacteria (FEW) /hpf Urine Mucus (FEW) /hpf Urine Opiates Screen (IPFRTG=065) Ur Buprenorphine Scrn (CUTOFF=10) Ur Oxycodone Screen (MRV3AT=560) Urine Methadone Screen (WQSDZL=136) Ur Propoxyphene Screen (VBBRRZ=171) Ur Barbiturates Screen (DEVFPM=217) Ur Tricyclics Screen (XWNSKV=136) Ur Phencyclidine Scrn (CUTOFF=25) Ur Amphetamine Screen (HZHGFA=742) U Methamphetamines Scrn (SAOJYY=453) U Benzodiazepines Scrn (QFWDMY=206) U Cocaine Metab Screen (SZYYVV=846) U Marijuana (THC) Screen (CUTOFF=50) Ketones (0.0-0.3) mM Influenza Type A RNA (NEGATIVE) RSV RNA (INAAT) (NEGATIVE) Influenza Type B RNA (NEGATIVE) SARS-CoV-2 RNA (ELIDIA) (NEGATIVE) 02/06/21 02/06/21 02/06/21 Range/Units 01:58 02:56 03:59 WBC (3.98-10.04) K/mm3 RBC (3.98-5.22) M/mm3 Hgb (11.2-15.7) gm/dl Hct (34.1-44.9) % MCV (79.4-94.8) fl MCH (25.6-32.2) pg MCHC (32.2-35.5) g/dl RDW Std Deviation (36.4-46.3) fL Plt Count (182-369) K/mm3 MPV (9.4-12.3) fl Neut % (Auto) (34.0-71.1) % Lymph % (Auto) (19.3-51.7) % [place] % (Auto) (4.7-12.5) % Eos % (Auto) (0.7-5.8) Baso % (Auto) (0.1-1.2) % Neut # (Auto) (1.56-6.13) K/mm3 Lymph # (Auto) (1.18-3.74) K/mm3 [place] # (Auto) (0.24-0.36) K/mm3 Eos # (Auto) (0.04-0.36) K/mm3 Baso # (Auto) (0.01-0.08) K/mm3 Puncture Site ABG pH (7.35-7.45) ABG pCO2 (35.0-45.0) mmHg ABG pO2 (80.0-100.0) mmHg ABG HCO3 (22.0-26.0) meq/L ABG O2 Saturation (96.0-97.0) % ABG Base Excess (-2-2.0) Rashid Test VBG pH (7.30-7.40) VBG pCO2 (41-51) mmHg VBG pO2 (40-80) mmHG VBG HCO3 (22-26) meq/L VBG O2 Saturation VBG Base Excess (-4.0-2.0) O2 Delivery Device Sodium (136-145) mEq/L Potassium (3.5-5.1) mEq/L Chloride (98-107) mEq/L Carbon Dioxide (21-32) mEq/L Anion Gap (5-15) BUN (7-18) mg/dL Creatinine (0.55-1.02) mg/dL Est Cr Clr Drug Dosing mL/min Estimated GFR (MDRD) (>60) mL/min BUN/Creatinine Ratio (14-18) Glucose (70-99) mg/dL POC Glucose 236 H 227 H 223 H (70-99) mg/dL Hemoglobin A1c ( - 5.6) % Serum Osmolality (280-300) mosm/kg Calcium (8.5-10.1) mg/dL Phosphorus (2.6-4.7) mg/dL Magnesium (1.8-2.4) mg/dL Total Bilirubin (0.2-1.0) mg/dL AST (15-37) U/L ALT (14-59) U/L Alkaline Phosphatase (46-116) U/L Total Protein (6.4-8.2) g/dl Albumin (3.4-5.0) g/dl Globulin gm/dL Albumin/Globulin Ratio (1-2) TSH 3rd Generation (0.358-3.74) uIU/mL Urine Color (Yellow) Urine Appearance (Clear) Urine pH (5.0-8.0) Ur Specific [place] (1.005-1.030) Urine Protein (Negative) Urine Glucose (UA) (Negative) Urine Ketones (Negative) Urine Occult Blood (Negative) Urine Nitrite (Negative) Urine Bilirubin (Negative) Urine Urobilinogen (0.2-1.0) Ur Leukocyte Esterase (Negative) Urine RBC (0-5) /hpf Urine WBC (0-5) /hpf Ur Squamous Epith Cells (0-5) /hpf Urine Bacteria (FEW) /hpf Urine Mucus (FEW) /hpf Urine Opiates Screen (NAOUTL=369) Ur Buprenorphine Scrn (CUTOFF=10) Ur Oxycodone Screen (REW7MX=013) Urine Methadone Screen (WRWUHU=016) Ur Propoxyphene Screen (DUNOEX=997) Ur Barbiturates Screen (VRAKGI=548) Ur Tricyclics Screen (NWXBYA=396) Ur Phencyclidine Scrn (CUTOFF=25) Ur Amphetamine Screen (EOHCOT=681) U Methamphetamines Scrn (IOBFTY=962) U Benzodiazepines Scrn (DMTLWP=522) U Cocaine Metab Screen (TAKZUY=176) U Marijuana (THC) Screen (CUTOFF=50) Ketones (0.0-0.3) mM Influenza Type A RNA (NEGATIVE) RSV RNA (INAAT) (NEGATIVE) Influenza Type B RNA (NEGATIVE) SARS-CoV-2 RNA (ELIDIA) (NEGATIVE) 02/06/21 02/06/21 02/06/21 Range/Units 05:12 06:15 06:20 WBC 9.65 (3.98-10.04) K/mm3 RBC 4.55 (3.98-5.22) M/mm3 Hgb 12.4 D (11.2-15.7) gm/dl Hct 35.1 (34.1-44.9) % MCV 77.1 L (79.4-94.8) fl MCH 27.3 (25.6-32.2) pg MCHC 35.3 (32.2-35.5) g/dl RDW Std Deviation 44.3 (36.4-46.3) fL Plt Count 216 (182-369) K/mm3 MPV 10.5 (9.4-12.3) fl Neut % (Auto) 77.1 H (34.0-71.1) % Lymph % (Auto) 9.2 L (19.3-51.7) % [place] % (Auto) 12.8 H (4.7-12.5) % Eos % (Auto) 0.2 L (0.7-5.8) Baso % (Auto) 0.2 (0.1-1.2) % Neut # (Auto) 7.43 H (1.56-6.13) K/mm3 Lymph # (Auto) 0.89 L (1.18-3.74) K/mm3 [place] # (Auto) 1.24 H (0.24-0.36) K/mm3 Eos # (Auto) 0.02 L (0.04-0.36) K/mm3 Baso # (Auto) 0.02 (0.01-0.08) K/mm3 Puncture Site ABG pH (7.35-7.45) ABG pCO2 (35.0-45.0) mmHg ABG pO2 (80.0-100.0) mmHg ABG HCO3 (22.0-26.0) meq/L ABG O2 Saturation (96.0-97.0) % ABG Base Excess (-2-2.0) Rashid Test VBG pH (7.30-7.40) VBG pCO2 (41-51) mmHg VBG pO2 (40-80) mmHG VBG HCO3 (22-26) meq/L VBG O2 Saturation VBG Base Excess (-4.0-2.0) O2 Delivery Device Sodium (136-145) mEq/L Potassium (3.5-5.1) mEq/L Chloride (98-107) mEq/L Carbon Dioxide (21-32) mEq/L Anion Gap (5-15) BUN (7-18) mg/dL Creatinine (0.55-1.02) mg/dL Est Cr Clr Drug Dosing mL/min Estimated GFR (MDRD) (>60) mL/min BUN/Creatinine Ratio (14-18) Glucose (70-99) mg/dL POC Glucose 221 H 189 H (70-99) mg/dL Hemoglobin A1c ( - 5.6) % Serum Osmolality (280-300) mosm/kg Calcium (8.5-10.1) mg/dL Phosphorus (2.6-4.7) mg/dL Magnesium (1.8-2.4) mg/dL Total Bilirubin (0.2-1.0) mg/dL AST (15-37) U/L ALT (14-59) U/L Alkaline Phosphatase (46-116) U/L Total Protein (6.4-8.2) g/dl Albumin (3.4-5.0) g/dl Globulin gm/dL Albumin/Globulin Ratio (1-2) TSH 3rd Generation (0.358-3.74) uIU/mL Urine Color (Yellow) Urine Appearance (Clear) Urine pH (5.0-8.0) Ur Specific [place] (1.005-1.030) Urine Protein (Negative) Urine Glucose (UA) (Negative) Urine Ketones (Negative) Urine Occult Blood (Negative) Urine Nitrite (Negative) Urine Bilirubin (Negative) Urine Urobilinogen (0.2-1.0) Ur Leukocyte Esterase (Negative) Urine RBC (0-5) /hpf Urine WBC (0-5) /hpf Ur Squamous Epith Cells (0-5) /hpf Urine Bacteria (FEW) /hpf Urine Mucus (FEW) /hpf Urine Opiates Screen (KWZZMA=485) Ur Buprenorphine Scrn (CUTOFF=10) Ur Oxycodone Screen (XBJ7YE=606) Urine Methadone Screen (KTGUFJ=445) Ur Propoxyphene Screen (EUZPQR=359) Ur Barbiturates Screen (VQTQAN=959) Ur Tricyclics Screen (OGWPSW=963) Ur Phencyclidine Scrn (CUTOFF=25) Ur Amphetamine Screen (ZTNFBZ=482) U Methamphetamines Scrn (XHCQJU=193) U Benzodiazepines Scrn (TBCUNJ=085) U Cocaine Metab Screen (PXBFLD=185) U Marijuana (THC) Screen (CUTOFF=50) Ketones (0.0-0.3) mM Influenza Type A RNA (NEGATIVE) RSV RNA (INAAT) (NEGATIVE) Influenza Type B RNA (NEGATIVE) SARS-CoV-2 RNA (ELIDIA) (NEGATIVE) 02/06/21 02/06/21 02/06/21 Range/Units 06:20 06:53 07:56 WBC (3.98-10.04) K/mm3 RBC (3.98-5.22) M/mm3 Hgb (11.2-15.7) gm/dl Hct (34.1-44.9) % MCV (79.4-94.8) fl MCH (25.6-32.2) pg MCHC (32.2-35.5) g/dl RDW Std Deviation (36.4-46.3) fL Plt Count (182-369) K/mm3 MPV (9.4-12.3) fl Neut % (Auto) (34.0-71.1) % Lymph % (Auto) (19.3-51.7) % [place] % (Auto) (4.7-12.5) % Eos % (Auto) (0.7-5.8) Baso % (Auto) (0.1-1.2) % Neut # (Auto) (1.56-6.13) K/mm3 Lymph # (Auto) (1.18-3.74) K/mm3 [place] # (Auto) (0.24-0.36) K/mm3 Eos # (Auto) (0.04-0.36) K/mm3 Baso # (Auto) (0.01-0.08) K/mm3 Puncture Site ABG pH (7.35-7.45) ABG pCO2 (35.0-45.0) mmHg ABG pO2 (80.0-100.0) mmHg ABG HCO3 (22.0-26.0) meq/L ABG O2 Saturation (96.0-97.0) % ABG Base Excess (-2-2.0) Rashid Test VBG pH 7.21 L (7.30-7.40) VBG pCO2 25.1 L (41-51) mmHg VBG pO2 87.0 H (40-80) mmHG VBG HCO3 9.7 L (22-26) meq/L VBG O2 Saturation 98.5 VBG Base Excess -16.8 L (-4.0-2.0) O2 Delivery Device Room air Sodium 135 L (136-145) mEq/L Potassium 2.7 L (3.5-5.1) mEq/L Chloride 109 H (98-107) mEq/L Carbon Dioxide 11 L (21-32) mEq/L Anion Gap 17.7 H (5-15) BUN 9 (7-18) mg/dL Creatinine 0.7 (0.55-1.02) mg/dL Est Cr Clr Drug Dosing 100.94 mL/min Estimated GFR (MDRD) > 60 (>60) mL/min BUN/Creatinine Ratio 12.9 L (14-18) Glucose 204 H (70-99) mg/dL POC Glucose 204 H (70-99) mg/dL Hemoglobin A1c ( - 5.6) % Serum Osmolality (280-300) mosm/kg Calcium 7.3 L (8.5-10.1) mg/dL Phosphorus 0.5 L (2.6-4.7) mg/dL Magnesium 2.6 H (1.8-2.4) mg/dL Total Bilirubin 0.4 (0.2-1.0) mg/dL AST 12 L (15-37) U/L ALT 13 L (14-59) U/L Alkaline Phosphatase 111 (46-116) U/L Total Protein 5.4 L (6.4-8.2) g/dl Albumin 2.9 L (3.4-5.0) g/dl Globulin 2.5 gm/dL Albumin/Globulin Ratio 1.2 (1-2) TSH 3rd Generation 6.572 H (0.358-3.74) uIU/mL Urine Color (Yellow) Urine Appearance (Clear) Urine pH (5.0-8.0) Ur Specific [place] (1.005-1.030) Urine Protein (Negative) Urine Glucose (UA) (Negative) Urine Ketones (Negative) Urine Occult Blood (Negative) Urine Nitrite (Negative) Urine Bilirubin (Negative) Urine Urobilinogen (0.2-1.0) Ur Leukocyte Esterase (Negative) Urine RBC (0-5) /hpf Urine WBC (0-5) /hpf Ur Squamous Epith Cells (0-5) /hpf Urine Bacteria (FEW) /hpf Urine Mucus (FEW) /hpf Urine Opiates Screen (ZEPRLV=842) Ur Buprenorphine Scrn (CUTOFF=10) Ur Oxycodone Screen (FVI7WS=763) Urine Methadone Screen (IIBAHG=449) Ur Propoxyphene Screen (VAMTKX=446) Ur Barbiturates Screen (RRVQLM=642) Ur Tricyclics Screen (XHYTPY=829) Ur Phencyclidine Scrn (CUTOFF=25) Ur Amphetamine Screen (BXYUPR=022) U Methamphetamines Scrn (UUMXUY=270) U Benzodiazepines Scrn (WCUYTT=406) U Cocaine Metab Screen (SOEIOP=221) U Marijuana (THC) Screen (CUTOFF=50) Ketones (0.0-0.3) mM Influenza Type A RNA (NEGATIVE) RSV RNA (INAAT) (NEGATIVE) Influenza Type B RNA (NEGATIVE) SARS-CoV-2 RNA (ELIDIA) (NEGATIVE) 02/06/21 Range/Units 07:59 WBC (3.98-10.04) K/mm3 RBC (3.98-5.22) M/mm3 Hgb (11.2-15.7) gm/dl Hct (34.1-44.9) % MCV (79.4-94.8) fl MCH (25.6-32.2) pg MCHC (32.2-35.5) g/dl RDW Std Deviation (36.4-46.3) fL Plt Count (182-369) K/mm3 MPV (9.4-12.3) fl Neut % (Auto) (34.0-71.1) % Lymph % (Auto) (19.3-51.7) % [place] % (Auto) (4.7-12.5) % Eos % (Auto) (0.7-5.8) Baso % (Auto) (0.1-1.2) % Neut # (Auto) (1.56-6.13) K/mm3 Lymph # (Auto) (1.18-3.74) K/mm3 [place] # (Auto) (0.24-0.36) K/mm3 Eos # (Auto) (0.04-0.36) K/mm3 Baso # (Auto) (0.01-0.08) K/mm3 Puncture Site ABG pH (7.35-7.45) ABG pCO2 (35.0-45.0) mmHg ABG pO2 (80.0-100.0) mmHg ABG HCO3 (22.0-26.0) meq/L ABG O2 Saturation (96.0-97.0) % ABG Base Excess (-2-2.0) Rashid Test VBG pH (7.30-7.40) VBG pCO2 (41-51) mmHg VBG pO2 (40-80) mmHG VBG HCO3 (22-26) meq/L VBG O2 Saturation VBG Base Excess (-4.0-2.0) O2 Delivery Device Sodium (136-145) mEq/L Potassium (3.5-5.1) mEq/L Chloride (98-107) mEq/L Carbon Dioxide (21-32) mEq/L Anion Gap (5-15) BUN (7-18) mg/dL Creatinine (0.55-1.02) mg/dL Est Cr Clr Drug Dosing mL/min Estimated GFR (MDRD) (>60) mL/min BUN/Creatinine Ratio (14-18) Glucose (70-99) mg/dL POC Glucose 161 H (70-99) mg/dL Hemoglobin A1c ( - 5.6) % Serum Osmolality (280-300) mosm/kg Calcium (8.5-10.1) mg/dL Phosphorus (2.6-4.7) mg/dL Magnesium (1.8-2.4) mg/dL Total Bilirubin (0.2-1.0) mg/dL AST (15-37) U/L ALT (14-59) U/L Alkaline Phosphatase (46-116) U/L Total Protein (6.4-8.2) g/dl Albumin (3.4-5.0) g/dl Globulin gm/dL Albumin/Globulin Ratio (1-2) TSH 3rd Generation (0.358-3.74) uIU/mL Urine Color (Yellow) Urine Appearance (Clear) Urine pH (5.0-8.0) Ur Specific [place] (1.005-1.030) Urine Protein (Negative) Urine Glucose (UA) (Negative) Urine Ketones (Negative) Urine Occult Blood (Negative) Urine Nitrite (Negative) Urine Bilirubin (Negative) Urine Urobilinogen (0.2-1.0) Ur Leukocyte Esterase (Negative) Urine RBC (0-5) /hpf Urine WBC (0-5) /hpf Ur Squamous Epith Cells (0-5) /hpf Urine Bacteria (FEW) /hpf Urine Mucus (FEW) /hpf Urine Opiates Screen (ZAXMRD=291) Ur Buprenorphine Scrn (CUTOFF=10) Ur Oxycodone Screen (QFU4MS=436) Urine Methadone Screen (JJHDOL=890) Ur Propoxyphene Screen (RNMEHV=091) Ur Barbiturates Screen (NRDGHI=445) Ur Tricyclics Screen (GDDEAA=881) Ur Phencyclidine Scrn (CUTOFF=25) Ur Amphetamine Screen (RWDPIT=646) U Methamphetamines Scrn (PYIGBI=225) U Benzodiazepines Scrn (JSSAJI=928) U Cocaine Metab Screen (IUEEKC=872) U Marijuana (THC) Screen (CUTOFF=50) Ketones (0.0-0.3) mM Influenza Type A RNA (NEGATIVE) RSV RNA (INAAT) (NEGATIVE) Influenza Type B RNA (NEGATIVE) SARS-CoV-2 RNA (ELIDIA) (NEGATIVE) Med Orders - Current: Current Medications Enoxaparin Sodium (Enoxaparin 40 Mg/0.4 Ml Syringe) 40 mg SUBCUT DAILY BERNARDO Insulin Human Regular 100 unit (/ Sodium Chloride) 100 mls @ 7.657 mls/hr IV TITRATE BERNARDO; Protocol Last Titration: 02/06/21 08:44 Dose: Infused Documented by: Potassium Chloride/Dextrose/Sod Cl (D5 1/2 Ns W/ 20 Meq/L Kcl) 1,000 mls @ 150 mls/hr IV ASDIRECTED BERNARDO Last Admin: 02/06/21 02:25 Dose: 150 mls/hr Documented by: Potassium Chloride 10 meq/ (Premix) 100 mls @ 100 mls/hr IV Q1H BERNARDO Stop: 02/06/21 12:59 Potassium Phosphate 30 mmole/ (Sodium Chloride) 510 mls @ 102 mls/hr IV ONETIME ONE Stop: 02/06/21 18:29 Ondansetron HCl (Ondansetron 4 Mg/2 Ml Sdv) 4 mg IV Q4H PRN PRN Reason: Nausea/Vomiting Last Admin: 02/06/21 01:37 Dose: 4 mg Documented by: Sodium Chloride (Sodium Chloride 0.9% 10 Ml Syringe) 10 ml FLUSH ASDIRECTED PRN PRN Reason: Keep Vein Open Last Admin: 02/05/21 08:37 Dose: 10 ml Documented by: Discontinued Medications Sodium Chloride (Normal Saline) 2,000 mls @ 1,000 mls/hr IV .BOLUS BERNARDO Last Admin: 02/05/21 08:37 Dose: 1,000 mls/hr Documented by: Lactated Ringer's (Ringers, Lactated) 1,000 mls @ 1,000 mls/hr IV .BOLUS ONE Stop: 02/05/21 11:48 Last Admin: 02/05/21 10:58 Dose: 1,000 mls/hr Documented by: Lactated Ringer's (Ringers, Lactated) 1,000 mls @ 1,000 mls/hr IV .BOLUS ONE Stop: 02/05/21 13:14 Last Admin: 02/05/21 12:20 Dose: 1,000 mls/hr Documented by: Potassium Chloride/Sodium Chloride (1/2 Ns With 20 Meq Kcl) 1,000 mls @ 500 mls/hr IV ASDIRECTED [facility] Last Admin: 02/05/21 14:01 Dose: 500 mls/hr Documented by: Sodium Bicarbonate 100 meq/Potassium Chloride 20 meq/Sterile Water 510 mls @ 255 mls/hr IV ONETIME ONE Stop: 02/05/21 15:59 Last Admin: 02/05/21 15:17 Dose: 255 mls/hr Documented by: Potassium Chloride 10 meq/ (Premix) 100 mls @ 100 mls/hr IV Q1H [facility] Stop: 02/05/21 18:59 Last Admin: 02/05/21 21:11 Dose: 100 mls/hr Documented by: Potassium Chloride/Dextrose/Sod Cl (D5 1/2 Ns W/ 20 Meq/L Kcl) 1,000 mls @ 200 mls/hr IV ASDIRECTED [facility] Last Admin: 02/05/21 22:20 Dose: 200 mls/hr Documented by: Potassium Chloride 10 meq/ (Premix) 100 mls @ 100 mls/hr IV Q1H [facility] Stop: 02/05/21 22:59 Last Admin: 02/05/21 22:09 Dose: 100 mls/hr Documented by: Potassium Chloride 10 meq/ (Premix) 100 mls @ 100 mls/hr IV Q1H [facility] Stop: 02/06/21 01:59 Last Admin: 02/06/21 01:16 Dose: 100 mls/hr Documented by: Magnesium Sulfate 4 gm/ Premix 50 mls @ 12.5 mls/hr IV ONETIME ONE Stop: 02/06/21 05:29 Magnesium Sulfate 4 gm/ Premix 50 mls @ 12.5 mls/hr IV ONETIME ONE Stop: 02/06/21 06:59 Last Admin: 02/06/21 02:42 Dose: 12.5 mls/hr Documented by: Sodium Chloride (Normal Saline) Confirm Administered Dose 100 mls @ as directed .ROUTE .STK-MED ONE Stop: 02/06/21 01:21 Last Admin: 02/06/21 02:50 Dose: Not Given Documented by: Potassium Chloride 10 meq/ (Premix) 100 mls @ 100 mls/hr IV Q1H [facility] Stop: 02/06/21 08:44 Last Admin: 02/06/21 02:38 Dose: 100 mls/hr Documented by: Potassium Chloride 10 meq/ (Premix) 100 mls @ 200 mls/hr IV ASDIRECTED [facility] Stop: 02/06/21 06:30 Last Admin: 02/06/21 05:48 Dose: 200 mls/hr Documented by: Insulin Human Regular (Insulin Regular, Human 100 Units/Ml 3 Ml Vial) 7 unit IV ONETIME ONE Stop: 02/05/21 13:31 Last Admin: 02/05/21 13:57 Dose: 7 unit Documented by: - Exam Quality Assessment: No: Supplemental Oxygen Central Line Total Time: 0Days 13Hours Urinary Catheter Total Time: 0Days 13Hours General: Mild Distress HEENT: Pupils Equal Neck: Supple Lungs: Clear to Auscultation. No: Normal Respiratory Effort (Increased rate) Cardiovascular: Regular Rate, Regular Rhythm GI/Abdominal Exam: Normal Bowel Sounds, Soft, Non-Tender, No Distention Extremities: Normal Inspection, No Pedal Edema, Normal Capillary Refill Skin: Warm, Dry, Intact Psy/Mental Status: Alert - Patient Data Lab Results Last 24 hrs: Laboratory Results - last 24 hr 02/05/21 02/05/21 02/05/21 Range/Units 08:00 08:00 08:17 WBC 13.54 H (3.98-10.04) K/mm3 RBC 5.61 H (3.98-5.22) M/mm3 Hgb 15.1 D (11.2-15.7) gm/dl Hct 44.8 (34.1-44.9) % MCV 79.9 (79.4-94.8) fl MCH 26.9 (25.6-32.2) pg MCHC 33.7 (32.2-35.5) g/dl RDW Std Deviation 47.3 H (36.4-46.3) fL Plt Count 160 L (182-369) K/mm3 MPV 10.9 (9.4-12.3) fl Neut % (Auto) 77.9 H (34.0-71.1) % Lymph % (Auto) 11.9 L (19.3-51.7) % [place] % (Auto) 7.9 (4.7-12.5) % Eos % (Auto) 0.3 L (0.7-5.8) Baso % (Auto) 0.5 (0.1-1.2) % Neut # (Auto) 10.55 H (1.56-6.13) K/mm3 Lymph # (Auto) 1.61 (1.18-3.74) K/mm3 [place] # (Auto) 1.07 H (0.24-0.36) K/mm3 Eos # (Auto) 0.04 (0.04-0.36) K/mm3 Baso # (Auto) 0.07 (0.01-0.08) K/mm3 Puncture Site ABG pH (7.35-7.45) ABG pCO2 (35.0-45.0) mmHg ABG pO2 (80.0-100.0) mmHg ABG HCO3 (22.0-26.0) meq/L ABG O2 Saturation (96.0-97.0) % ABG Base Excess (-2-2.0) Rashid Test VBG pH (7.30-7.40) VBG pCO2 (41-51) mmHg VBG pO2 (40-80) mmHG VBG HCO3 (22-26) meq/L VBG O2 Saturation VBG Base Excess (-4.0-2.0) O2 Delivery Device Sodium 135 L (136-145) mEq/L Potassium 3.9 (3.5-5.1) mEq/L Chloride 101 (98-107) mEq/L Carbon Dioxide 5 L* (21-32) mEq/L Anion Gap 32.9 H (5-15) BUN 15 (7-18) mg/dL Creatinine 1.0 (0.55-1.02) mg/dL Est Cr Clr Drug Dosing 70.66 mL/min Estimated GFR (MDRD) > 60 (>60) mL/min BUN/Creatinine Ratio 15.0 (14-18) Glucose 421 H* (70-99) mg/dL POC Glucose (70-99) mg/dL Hemoglobin A1c ( - 5.6) % Serum Osmolality 314 H (280-300) mosm/kg Calcium 8.6 (8.5-10.1) mg/dL Phosphorus (2.6-4.7) mg/dL Magnesium 2.2 (1.8-2.4) mg/dL Total Bilirubin 0.4 (0.2-1.0) mg/dL AST 16 (15-37) U/L ALT 20 (14-59) U/L Alkaline Phosphatase 164 H (46-116) U/L Total Protein 7.8 (6.4-8.2) g/dl Albumin 4.4 (3.4-5.0) g/dl Globulin 3.4 gm/dL Albumin/Globulin Ratio 1.3 (1-2) TSH 3rd Generation (0.358-3.74) uIU/mL Urine Color (Yellow) Urine Appearance (Clear) Urine pH (5.0-8.0) Ur Specific [place] (1.005-1.030) Urine Protein (Negative) Urine Glucose (UA) (Negative) Urine Ketones (Negative) Urine Occult Blood (Negative) Urine Nitrite (Negative) Urine Bilirubin (Negative) Urine Urobilinogen (0.2-1.0) Ur Leukocyte Esterase (Negative) Urine RBC (0-5) /hpf Urine WBC (0-5) /hpf Ur Squamous Epith Cells (0-5) /hpf Urine Bacteria (FEW) /hpf Urine Mucus (FEW) /hpf Urine Opiates Screen (MTFEBY=993) Ur Buprenorphine Scrn (CUTOFF=10) Ur Oxycodone Screen (XBW3YC=441) Urine Methadone Screen (INDIOS=102) Ur Propoxyphene Screen (BXDTLS=239) Ur Barbiturates Screen (RYCBHC=484) Ur Tricyclics Screen (EBZCQV=369) Ur Phencyclidine Scrn (CUTOFF=25) Ur Amphetamine Screen (OAXTZK=353) U Methamphetamines Scrn (VBUMLO=472) U Benzodiazepines Scrn (EGVKTO=116) U Cocaine Metab Screen (XYGFCA=711) U Marijuana (THC) Screen (CUTOFF=50) Ketones 11.22 (0.0-0.3) mM Influenza Type A RNA (NEGATIVE) RSV RNA (INAAT) (NEGATIVE) Influenza Type B RNA (NEGATIVE) SARS-CoV-2 RNA (ELIDIA) (NEGATIVE) 02/05/21 02/05/21 02/05/21 Range/Units 08:24 08:34 09:49 WBC (3.98-10.04) K/mm3 RBC (3.98-5.22) M/mm3 Hgb (11.2-15.7) gm/dl Hct (34.1-44.9) % MCV (79.4-94.8) fl MCH (25.6-32.2) pg MCHC (32.2-35.5) g/dl RDW Std Deviation (36.4-46.3) fL Plt Count (182-369) K/mm3 MPV (9.4-12.3) fl Neut % (Auto) (34.0-71.1) % Lymph % (Auto) (19.3-51.7) % [place] % (Auto) (4.7-12.5) % Eos % (Auto) (0.7-5.8) Baso % (Auto) (0.1-1.2) % Neut # (Auto) (1.56-6.13) K/mm3 Lymph # (Auto) (1.18-3.74) K/mm3 [place] # (Auto) (0.24-0.36) K/mm3 Eos # (Auto) (0.04-0.36) K/mm3 Baso # (Auto) (0.01-0.08) K/mm3 Puncture Site Rt radial ABG pH 6.91 L* (7.35-7.45) ABG pCO2 7.4 L* (35.0-45.0) mmHg ABG pO2 129.0 H (80.0-100.0) mmHg ABG HCO3 1.4 L (22.0-26.0) meq/L ABG O2 Saturation 98.0 H (96.0-97.0) % ABG Base Excess -34.0 L (-2-2.0) Rashid Test Positive VBG pH (7.30-7.40) VBG pCO2 (41-51) mmHg VBG pO2 (40-80) mmHG VBG HCO3 (22-26) meq/L VBG O2 Saturation VBG Base Excess (-4.0-2.0) O2 Delivery Device Room air Sodium (136-145) mEq/L Potassium (3.5-5.1) mEq/L Chloride (98-107) mEq/L Carbon Dioxide (21-32) mEq/L Anion Gap (5-15) BUN (7-18) mg/dL Creatinine (0.55-1.02) mg/dL Est Cr Clr Drug Dosing mL/min Estimated GFR (MDRD) (>60) mL/min BUN/Creatinine Ratio (14-18) Glucose (70-99) mg/dL POC Glucose (70-99) mg/dL Hemoglobin A1c 12.7 H ( - 5.6) % Serum Osmolality (280-300) mosm/kg Calcium (8.5-10.1) mg/dL Phosphorus (2.6-4.7) mg/dL Magnesium (1.8-2.4) mg/dL Total Bilirubin (0.2-1.0) mg/dL AST (15-37) U/L ALT (14-59) U/L Alkaline Phosphatase (46-116) U/L Total Protein (6.4-8.2) g/dl Albumin (3.4-5.0) g/dl Globulin gm/dL Albumin/Globulin Ratio (1-2) TSH 3rd Generation (0.358-3.74) uIU/mL Urine Color (Yellow) Urine Appearance (Clear) Urine pH (5.0-8.0) Ur Specific [place] (1.005-1.030) Urine Protein (Negative) Urine Glucose (UA) (Negative) Urine Ketones (Negative) Urine Occult Blood (Negative) Urine Nitrite (Negative) Urine Bilirubin (Negative) Urine Urobilinogen (0.2-1.0) Ur Leukocyte Esterase (Negative) Urine RBC (0-5) /hpf Urine WBC (0-5) /hpf Ur Squamous Epith Cells (0-5) /hpf Urine Bacteria (FEW) /hpf Urine Mucus (FEW) /hpf Urine Opiates Screen (LZVCVY=471) Ur Buprenorphine Scrn (CUTOFF=10) Ur Oxycodone Screen (XHB7YJ=881) Urine Methadone Screen (KVOGXY=050) Ur Propoxyphene Screen (IZWYOX=556) Ur Barbiturates Screen (MKYMTH=548) Ur Tricyclics Screen (VECFPI=796) Ur Phencyclidine Scrn (CUTOFF=25) Ur Amphetamine Screen (EPPLCC=388) U Methamphetamines Scrn (DLFLFQ=083) U Benzodiazepines Scrn (PBNTJQ=777) U Cocaine Metab Screen (HLKAMM=714) U Marijuana (THC) Screen (CUTOFF=50) Ketones (0.0-0.3) mM Influenza Type A RNA Negative (NEGATIVE) RSV RNA (INAAT) Negative (NEGATIVE) Influenza Type B RNA Negative (NEGATIVE) SARS-CoV-2 RNA (ELIDIA) Negative (NEGATIVE) 02/05/21 02/05/21 02/05/21 Range/Units 10:15 10:15 10:55 WBC (3.98-10.04) K/mm3 RBC (3.98-5.22) M/mm3 Hgb (11.2-15.7) gm/dl Hct (34.1-44.9) % MCV (79.4-94.8) fl MCH (25.6-32.2) pg MCHC (32.2-35.5) g/dl RDW Std Deviation (36.4-46.3) fL Plt Count (182-369) K/mm3 MPV (9.4-12.3) fl Neut % (Auto) (34.0-71.1) % Lymph % (Auto) (19.3-51.7) % [place] % (Auto) (4.7-12.5) % Eos % (Auto) (0.7-5.8) Baso % (Auto) (0.1-1.2) % Neut # (Auto) (1.56-6.13) K/mm3 Lymph # (Auto) (1.18-3.74) K/mm3 [place] # (Auto) (0.24-0.36) K/mm3 Eos # (Auto) (0.04-0.36) K/mm3 Baso # (Auto) (0.01-0.08) K/mm3 Puncture Site ABG pH (7.35-7.45) ABG pCO2 (35.0-45.0) mmHg ABG pO2 (80.0-100.0) mmHg ABG HCO3 (22.0-26.0) meq/L ABG O2 Saturation (96.0-97.0) % ABG Base Excess (-2-2.0) Rashid Test VBG pH (7.30-7.40) VBG pCO2 (41-51) mmHg VBG pO2 (40-80) mmHG VBG HCO3 (22-26) meq/L VBG O2 Saturation VBG Base Excess (-4.0-2.0) O2 Delivery Device Sodium (136-145) mEq/L Potassium (3.5-5.1) mEq/L Chloride (98-107) mEq/L Carbon Dioxide (21-32) mEq/L Anion Gap (5-15) BUN (7-18) mg/dL Creatinine (0.55-1.02) mg/dL Est Cr Clr Drug Dosing mL/min Estimated GFR (MDRD) (>60) mL/min BUN/Creatinine Ratio (14-18) Glucose (70-99) mg/dL POC Glucose 336 H (70-99) mg/dL Hemoglobin A1c ( - 5.6) % Serum Osmolality (280-300) mosm/kg Calcium (8.5-10.1) mg/dL Phosphorus (2.6-4.7) mg/dL Magnesium (1.8-2.4) mg/dL Total Bilirubin (0.2-1.0) mg/dL AST (15-37) U/L ALT (14-59) U/L Alkaline Phosphatase (46-116) U/L Total Protein (6.4-8.2) g/dl Albumin (3.4-5.0) g/dl Globulin gm/dL Albumin/Globulin Ratio (1-2) TSH 3rd Generation (0.358-3.74) uIU/mL Urine Color Yellow (Yellow) Urine Appearance Clear (Clear) Urine pH 5.5 (5.0-8.0) Ur Specific [place] > or = 1.030 (1.005-1.030) Urine Protein 2+ H (Negative) Urine Glucose (UA) 2+ H (Negative) Urine Ketones 4+ H (Negative) Urine Occult Blood 2+ H (Negative) Urine Nitrite Negative (Negative) Urine Bilirubin Negative (Negative) Urine Urobilinogen 0.2 (0.2-1.0) Ur Leukocyte Esterase Negative (Negative) Urine RBC 5-10 H (0-5) /hpf Urine WBC 0-5 (0-5) /hpf Ur Squamous Epith Cells 0-5 (0-5) /hpf Urine Bacteria Moderate H (FEW) /hpf Urine Mucus Few (FEW) /hpf Urine Opiates Screen Negative (HVDQVN=519) Ur Buprenorphine Scrn Negative (CUTOFF=10) Ur Oxycodone Screen Negative (EUP9KH=835) Urine Methadone Screen Negative (TIVPWM=810) Ur Propoxyphene Screen Negative (ESXTDZ=888) Ur Barbiturates Screen Negative (KDKYWB=541) Ur Tricyclics Screen Negative (TWBATK=927) Ur Phencyclidine Scrn Negative (CUTOFF=25) Ur Amphetamine Screen Negative (EGMJFZ=409) U Methamphetamines Scrn Negative (EVZMJK=218) U Benzodiazepines Scrn Negative (RHIAJR=066) U Cocaine Metab Screen Negative (VSAYJP=377) U Marijuana (THC) Screen Negative (CUTOFF=50) Ketones (0.0-0.3) mM Influenza Type A RNA (NEGATIVE) RSV RNA (INAAT) (NEGATIVE) Influenza Type B RNA (NEGATIVE) SARS-CoV-2 RNA (ELIDIA) (NEGATIVE) 02/05/21 02/05/21 02/05/21 Range/Units 12:14 13:39 13:39 WBC (3.98-10.04) K/mm3 RBC (3.98-5.22) M/mm3 Hgb (11.2-15.7) gm/dl Hct (34.1-44.9) % MCV (79.4-94.8) fl MCH (25.6-32.2) pg MCHC (32.2-35.5) g/dl RDW Std Deviation (36.4-46.3) fL Plt Count (182-369) K/mm3 MPV (9.4-12.3) fl Neut % (Auto) (34.0-71.1) % Lymph % (Auto) (19.3-51.7) % [place] % (Auto) (4.7-12.5) % Eos % (Auto) (0.7-5.8) Baso % (Auto) (0.1-1.2) % Neut # (Auto) (1.56-6.13) K/mm3 Lymph # (Auto) (1.18-3.74) K/mm3 [place] # (Auto) (0.24-0.36) K/mm3 Eos # (Auto) (0.04-0.36) K/mm3 Baso # (Auto) (0.01-0.08) K/mm3 Puncture Site ABG pH (7.35-7.45) ABG pCO2 (35.0-45.0) mmHg ABG pO2 (80.0-100.0) mmHg ABG HCO3 (22.0-26.0) meq/L ABG O2 Saturation (96.0-97.0) % ABG Base Excess (-2-2.0) Rashid Test VBG pH 6.88 L (7.30-7.40) VBG pCO2 (41-51) mmHg VBG pO2 (40-80) mmHG VBG HCO3 (22-26) meq/L VBG O2 Saturation VBG Base Excess (-4.0-2.0) O2 Delivery Device Sodium 135 L (136-145) mEq/L Potassium 3.5 (3.5-5.1) mEq/L Chloride 106 (98-107) mEq/L Carbon Dioxide 3 L* (21-32) mEq/L Anion Gap 29.5 H (5-15) BUN 13 (7-18) mg/dL Creatinine 0.8 (0.55-1.02) mg/dL Est Cr Clr Drug Dosing 88.32 mL/min Estimated GFR (MDRD) > 60 (>60) mL/min BUN/Creatinine Ratio 16.3 (14-18) Glucose 349 H (70-99) mg/dL POC Glucose 326 H (70-99) mg/dL Hemoglobin A1c ( - 5.6) % Serum Osmolality (280-300) mosm/kg Calcium 7.2 L (8.5-10.1) mg/dL Phosphorus 2.8 (2.6-4.7) mg/dL Magnesium 1.8 (1.8-2.4) mg/dL Total Bilirubin (0.2-1.0) mg/dL AST (15-37) U/L ALT (14-59) U/L Alkaline Phosphatase (46-116) U/L Total Protein (6.4-8.2) g/dl Albumin (3.4-5.0) g/dl Globulin gm/dL Albumin/Globulin Ratio (1-2) TSH 3rd Generation (0.358-3.74) uIU/mL Urine Color (Yellow) Urine Appearance (Clear) Urine pH (5.0-8.0) Ur Specific [place] (1.005-1.030) Urine Protein (Negative) Urine Glucose (UA) (Negative) Urine Ketones (Negative) Urine Occult Blood (Negative) Urine Nitrite (Negative) Urine Bilirubin (Negative) Urine Urobilinogen (0.2-1.0) Ur Leukocyte Esterase (Negative) Urine RBC (0-5) /hpf Urine WBC (0-5) /hpf Ur Squamous Epith Cells (0-5) /hpf Urine Bacteria (FEW) /hpf Urine Mucus (FEW) /hpf Urine Opiates Screen (TNNAST=792) Ur Buprenorphine Scrn (CUTOFF=10) Ur Oxycodone Screen (EGO3RB=647) Urine Methadone Screen (TNUAWG=481) Ur Propoxyphene Screen (BKGGEE=316) Ur Barbiturates Screen (OGZPKL=820) Ur Tricyclics Screen (RHNBKT=571) Ur Phencyclidine Scrn (CUTOFF=25) Ur Amphetamine Screen (GYRMJE=444) U Methamphetamines Scrn (ZEMNOZ=860) U Benzodiazepines Scrn (TYTREC=782) U Cocaine Metab Screen (XLXLBC=464) U Marijuana (THC) Screen (CUTOFF=50) Ketones (0.0-0.3) mM Influenza Type A RNA (NEGATIVE) RSV RNA (INAAT) (NEGATIVE) Influenza Type B RNA (NEGATIVE) SARS-CoV-2 RNA (ELIDIA) (NEGATIVE) 02/05/21 02/05/21 02/05/21 Range/Units 14:36 16:01 17:03 WBC (3.98-10.04) K/mm3 RBC (3.98-5.22) M/mm3 Hgb (11.2-15.7) gm/dl Hct (34.1-44.9) % MCV (79.4-94.8) fl MCH (25.6-32.2) pg MCHC (32.2-35.5) g/dl RDW Std Deviation (36.4-46.3) fL Plt Count (182-369) K/mm3 MPV (9.4-12.3) fl Neut % (Auto) (34.0-71.1) % Lymph % (Auto) (19.3-51.7) % [place] % (Auto) (4.7-12.5) % Eos % (Auto) (0.7-5.8) Baso % (Auto) (0.1-1.2) % Neut # (Auto) (1.56-6.13) K/mm3 Lymph # (Auto) (1.18-3.74) K/mm3 [place] # (Auto) (0.24-0.36) K/mm3 Eos # (Auto) (0.04-0.36) K/mm3 Baso # (Auto) (0.01-0.08) K/mm3 Puncture Site ABG pH (7.35-7.45) ABG pCO2 (35.0-45.0) mmHg ABG pO2 (80.0-100.0) mmHg ABG HCO3 (22.0-26.0) meq/L ABG O2 Saturation (96.0-97.0) % ABG Base Excess (-2-2.0) Rashid Test VBG pH (7.30-7.40) VBG pCO2 (41-51) mmHg VBG pO2 (40-80) mmHG VBG HCO3 (22-26) meq/L VBG O2 Saturation VBG Base Excess (-4.0-2.0) O2 Delivery Device Sodium (136-145) mEq/L Potassium (3.5-5.1) mEq/L Chloride (98-107) mEq/L Carbon Dioxide (21-32) mEq/L Anion Gap (5-15) BUN (7-18) mg/dL Creatinine (0.55-1.02) mg/dL Est Cr Clr Drug Dosing mL/min Estimated GFR (MDRD) (>60) mL/min BUN/Creatinine Ratio (14-18) Glucose (70-99) mg/dL POC Glucose 302 H 228 H 171 H (70-99) mg/dL Hemoglobin A1c ( - 5.6) % Serum Osmolality (280-300) mosm/kg Calcium (8.5-10.1) mg/dL Phosphorus (2.6-4.7) mg/dL Magnesium (1.8-2.4) mg/dL Total Bilirubin (0.2-1.0) mg/dL AST (15-37) U/L ALT (14-59) U/L Alkaline Phosphatase (46-116) U/L Total Protein (6.4-8.2) g/dl Albumin (3.4-5.0) g/dl Globulin gm/dL Albumin/Globulin Ratio (1-2) TSH 3rd Generation (0.358-3.74) uIU/mL Urine Color (Yellow) Urine Appearance (Clear) Urine pH (5.0-8.0) Ur Specific [place] (1.005-1.030) Urine Protein (Negative) Urine Glucose (UA) (Negative) Urine Ketones (Negative) Urine Occult Blood (Negative) Urine Nitrite (Negative) Urine Bilirubin (Negative) Urine Urobilinogen (0.2-1.0) Ur Leukocyte Esterase (Negative) Urine RBC (0-5) /hpf Urine WBC (0-5) /hpf Ur Squamous Epith Cells (0-5) /hpf Urine Bacteria (FEW) /hpf Urine Mucus (FEW) /hpf Urine Opiates Screen (GHACSK=780) Ur Buprenorphine Scrn (CUTOFF=10) Ur Oxycodone Screen (MAI7HL=877) Urine Methadone Screen (FXQBFV=700) Ur Propoxyphene Screen (ELPYLW=161) Ur Barbiturates Screen (EVUBEU=691) Ur Tricyclics Screen (RBKSKH=179) Ur Phencyclidine Scrn (CUTOFF=25) Ur Amphetamine Screen (QTXWWQ=151) U Methamphetamines Scrn (LARWOJ=759) U Benzodiazepines Scrn (THEMJN=293) U Cocaine Metab Screen (VZJFLF=786) U Marijuana (THC) Screen (CUTOFF=50) Ketones (0.0-0.3) mM Influenza Type A RNA (NEGATIVE) RSV RNA (INAAT) (NEGATIVE) Influenza Type B RNA (NEGATIVE) SARS-CoV-2 RNA (ELIDIA) (NEGATIVE) 02/05/21 02/05/21 02/05/21 Range/Units 17:22 17:54 17:54 WBC (3.98-10.04) K/mm3 RBC (3.98-5.22) M/mm3 Hgb (11.2-15.7) gm/dl Hct (34.1-44.9) % MCV (79.4-94.8) fl MCH (25.6-32.2) pg MCHC (32.2-35.5) g/dl RDW Std Deviation (36.4-46.3) fL Plt Count (182-369) K/mm3 MPV (9.4-12.3) fl Neut % (Auto) (34.0-71.1) % Lymph % (Auto) (19.3-51.7) % [place] % (Auto) (4.7-12.5) % Eos % (Auto) (0.7-5.8) Baso % (Auto) (0.1-1.2) % Neut # (Auto) (1.56-6.13) K/mm3 Lymph # (Auto) (1.18-3.74) K/mm3 [place] # (Auto) (0.24-0.36) K/mm3 Eos # (Auto) (0.04-0.36) K/mm3 Baso # (Auto) (0.01-0.08) K/mm3 Puncture Site ABG pH (7.35-7.45) ABG pCO2 (35.0-45.0) mmHg ABG pO2 (80.0-100.0) mmHg ABG HCO3 (22.0-26.0) meq/L ABG O2 Saturation (96.0-97.0) % ABG Base Excess (-2-2.0) Rashid Test VBG pH 7.04 L (7.30-7.40) VBG pCO2 (41-51) mmHg VBG pO2 (40-80) mmHG VBG HCO3 (22-26) meq/L VBG O2 Saturation VBG Base Excess (-4.0-2.0) O2 Delivery Device Sodium 140 (136-145) mEq/L Potassium 2.8 L (3.5-5.1) mEq/L Chloride 107 (98-107) mEq/L Carbon Dioxide 5 L* (21-32) mEq/L Anion Gap 30.8 H (5-15) BUN 12 (7-18) mg/dL Creatinine 0.8 (0.55-1.02) mg/dL Est Cr Clr Drug Dosing 88.32 mL/min Estimated GFR (MDRD) > 60 (>60) mL/min BUN/Creatinine Ratio 15.0 (14-18) Glucose 182 H (70-99) mg/dL POC Glucose 161 H (70-99) mg/dL Hemoglobin A1c ( - 5.6) % Serum Osmolality (280-300) mosm/kg Calcium 7.6 L (8.5-10.1) mg/dL Phosphorus (2.6-4.7) mg/dL Magnesium 1.8 (1.8-2.4) mg/dL Total Bilirubin (0.2-1.0) mg/dL AST (15-37) U/L ALT (14-59) U/L Alkaline Phosphatase (46-116) U/L Total Protein (6.4-8.2) g/dl Albumin (3.4-5.0) g/dl Globulin gm/dL Albumin/Globulin Ratio (1-2) TSH 3rd Generation (0.358-3.74) uIU/mL Urine Color (Yellow) Urine Appearance (Clear) Urine pH (5.0-8.0) Ur Specific [place] (1.005-1.030) Urine Protein (Negative) Urine Glucose (UA) (Negative) Urine Ketones (Negative) Urine Occult Blood (Negative) Urine Nitrite (Negative) Urine Bilirubin (Negative) Urine Urobilinogen (0.2-1.0) Ur Leukocyte Esterase (Negative) Urine RBC (0-5) /hpf Urine WBC (0-5) /hpf Ur Squamous Epith Cells (0-5) /hpf Urine Bacteria (FEW) /hpf Urine Mucus (FEW) /hpf Urine Opiates Screen (FHUCBK=543) Ur Buprenorphine Scrn (CUTOFF=10) Ur Oxycodone Screen (IOA6OW=618) Urine Methadone Screen (VZKGHJ=652) Ur Propoxyphene Screen (UUWUPP=130) Ur Barbiturates Screen (XLYYII=052) Ur Tricyclics Screen (KXSKJA=265) Ur Phencyclidine Scrn (CUTOFF=25) Ur Amphetamine Screen (ZVWQHL=301) U Methamphetamines Scrn (DDJKSI=586) U Benzodiazepines Scrn (TIVWBL=525) U Cocaine Metab Screen (KUDPEG=470) U Marijuana (THC) Screen (CUTOFF=50) Ketones (0.0-0.3) mM Influenza Type A RNA (NEGATIVE) RSV RNA (INAAT) (NEGATIVE) Influenza Type B RNA (NEGATIVE) SARS-CoV-2 RNA (ELIDIA) (NEGATIVE) 02/05/21 02/05/21 02/05/21 Range/Units 18:54 20:03 21:08 WBC (3.98-10.04) K/mm3 RBC (3.98-5.22) M/mm3 Hgb (11.2-15.7) gm/dl Hct (34.1-44.9) % MCV (79.4-94.8) fl MCH (25.6-32.2) pg MCHC (32.2-35.5) g/dl RDW Std Deviation (36.4-46.3) fL Plt Count (182-369) K/mm3 MPV (9.4-12.3) fl Neut % (Auto) (34.0-71.1) % Lymph % (Auto) (19.3-51.7) % [place] % (Auto) (4.7-12.5) % Eos % (Auto) (0.7-5.8) Baso % (Auto) (0.1-1.2) % Neut # (Auto) (1.56-6.13) K/mm3 Lymph # (Auto) (1.18-3.74) K/mm3 [place] # (Auto) (0.24-0.36) K/mm3 Eos # (Auto) (0.04-0.36) K/mm3 Baso # (Auto) (0.01-0.08) K/mm3 Puncture Site ABG pH (7.35-7.45) ABG pCO2 (35.0-45.0) mmHg ABG pO2 (80.0-100.0) mmHg ABG HCO3 (22.0-26.0) meq/L ABG O2 Saturation (96.0-97.0) % ABG Base Excess (-2-2.0) Rashid Test VBG pH (7.30-7.40) VBG pCO2 (41-51) mmHg VBG pO2 (40-80) mmHG VBG HCO3 (22-26) meq/L VBG O2 Saturation VBG Base Excess (-4.0-2.0) O2 Delivery Device Sodium (136-145) mEq/L Potassium (3.5-5.1) mEq/L Chloride (98-107) mEq/L Carbon Dioxide (21-32) mEq/L Anion Gap (5-15) BUN (7-18) mg/dL Creatinine (0.55-1.02) mg/dL Est Cr Clr Drug Dosing mL/min Estimated GFR (MDRD) (>60) mL/min BUN/Creatinine Ratio (14-18) Glucose (70-99) mg/dL POC Glucose 171 H 206 H 223 H (70-99) mg/dL Hemoglobin A1c ( - 5.6) % Serum Osmolality (280-300) mosm/kg Calcium (8.5-10.1) mg/dL Phosphorus (2.6-4.7) mg/dL Magnesium (1.8-2.4) mg/dL Total Bilirubin (0.2-1.0) mg/dL AST (15-37) U/L ALT (14-59) U/L Alkaline Phosphatase (46-116) U/L Total Protein (6.4-8.2) g/dl Albumin (3.4-5.0) g/dl Globulin gm/dL Albumin/Globulin Ratio (1-2) TSH 3rd Generation (0.358-3.74) uIU/mL Urine Color (Yellow) Urine Appearance (Clear) Urine pH (5.0-8.0) Ur Specific [place] (1.005-1.030) Urine Protein (Negative) Urine Glucose (UA) (Negative) Urine Ketones (Negative) Urine Occult Blood (Negative) Urine Nitrite (Negative) Urine Bilirubin (Negative) Urine Urobilinogen (0.2-1.0) Ur Leukocyte Esterase (Negative) Urine RBC (0-5) /hpf Urine WBC (0-5) /hpf Ur Squamous Epith Cells (0-5) /hpf Urine Bacteria (FEW) /hpf Urine Mucus (FEW) /hpf Urine Opiates Screen (DUVAUF=191) Ur Buprenorphine Scrn (CUTOFF=10) Ur Oxycodone Screen (CYV5ML=623) Urine Methadone Screen (BUHRFI=194) Ur Propoxyphene Screen (IXSYMQ=728) Ur Barbiturates Screen (HOISAL=723) Ur Tricyclics Screen (FVYGHA=065) Ur Phencyclidine Scrn (CUTOFF=25) Ur Amphetamine Screen (YFQRFI=210) U Methamphetamines Scrn (EMSKJH=470) U Benzodiazepines Scrn (YDBYCR=964) U Cocaine Metab Screen (OJAHPG=100) U Marijuana (THC) Screen (CUTOFF=50) Ketones (0.0-0.3) mM Influenza Type A RNA (NEGATIVE) RSV RNA (INAAT) (NEGATIVE) Influenza Type B RNA (NEGATIVE) SARS-CoV-2 RNA (ELIDIA) (NEGATIVE) 02/05/21 02/05/21 02/05/21 Range/Units 21:37 22:07 23:03 WBC (3.98-10.04) K/mm3 RBC (3.98-5.22) M/mm3 Hgb (11.2-15.7) gm/dl Hct (34.1-44.9) % MCV (79.4-94.8) fl MCH (25.6-32.2) pg MCHC (32.2-35.5) g/dl RDW Std Deviation (36.4-46.3) fL Plt Count (182-369) K/mm3 MPV (9.4-12.3) fl Neut % (Auto) (34.0-71.1) % Lymph % (Auto) (19.3-51.7) % [place] % (Auto) (4.7-12.5) % Eos % (Auto) (0.7-5.8) Baso % (Auto) (0.1-1.2) % Neut # (Auto) (1.56-6.13) K/mm3 Lymph # (Auto) (1.18-3.74) K/mm3 [place] # (Auto) (0.24-0.36) K/mm3 Eos # (Auto) (0.04-0.36) K/mm3 Baso # (Auto) (0.01-0.08) K/mm3 Puncture Site ABG pH (7.35-7.45) ABG pCO2 (35.0-45.0) mmHg ABG pO2 (80.0-100.0) mmHg ABG HCO3 (22.0-26.0) meq/L ABG O2 Saturation (96.0-97.0) % ABG Base Excess (-2-2.0) Rashid Test VBG pH (7.30-7.40) VBG pCO2 (41-51) mmHg VBG pO2 (40-80) mmHG VBG HCO3 (22-26) meq/L VBG O2 Saturation VBG Base Excess (-4.0-2.0) O2 Delivery Device Sodium 137 (136-145) mEq/L Potassium 3.1 L (3.5-5.1) mEq/L Chloride 109 H (98-107) mEq/L Carbon Dioxide 6 L* (21-32) mEq/L Anion Gap 25.1 H (5-15) BUN 10 (7-18) mg/dL Creatinine 0.7 (0.55-1.02) mg/dL Est Cr Clr Drug Dosing 100.94 mL/min Estimated GFR (MDRD) > 60 (>60) mL/min BUN/Creatinine Ratio 14.3 (14-18) Glucose 256 H (70-99) mg/dL POC Glucose 243 H 240 H (70-99) mg/dL Hemoglobin A1c ( - 5.6) % Serum Osmolality (280-300) mosm/kg Calcium 7.2 L (8.5-10.1) mg/dL Phosphorus (2.6-4.7) mg/dL Magnesium 1.6 L (1.8-2.4) mg/dL Total Bilirubin (0.2-1.0) mg/dL AST (15-37) U/L ALT (14-59) U/L Alkaline Phosphatase (46-116) U/L Total Protein (6.4-8.2) g/dl Albumin (3.4-5.0) g/dl Globulin gm/dL Albumin/Globulin Ratio (1-2) TSH 3rd Generation (0.358-3.74) uIU/mL Urine Color (Yellow) Urine Appearance (Clear) Urine pH (5.0-8.0) Ur Specific [place] (1.005-1.030) Urine Protein (Negative) Urine Glucose (UA) (Negative) Urine Ketones (Negative) Urine Occult Blood (Negative) Urine Nitrite (Negative) Urine Bilirubin (Negative) Urine Urobilinogen (0.2-1.0) Ur Leukocyte Esterase (Negative) Urine RBC (0-5) /hpf Urine WBC (0-5) /hpf Ur Squamous Epith Cells (0-5) /hpf Urine Bacteria (FEW) /hpf Urine Mucus (FEW) /hpf Urine Opiates Screen (AYJBHH=740) Ur Buprenorphine Scrn (CUTOFF=10) Ur Oxycodone Screen (YVT4VT=814) Urine Methadone Screen (RCDAWZ=651) Ur Propoxyphene Screen (CZEAOK=193) Ur Barbiturates Screen (EUFZAW=082) Ur Tricyclics Screen (WGCMCG=347) Ur Phencyclidine Scrn (CUTOFF=25) Ur Amphetamine Screen (RZJMLS=795) U Methamphetamines Scrn (HINGKD=354) U Benzodiazepines Scrn (CUEJAI=224) U Cocaine Metab Screen (LCAGJL=634) U Marijuana (THC) Screen (CUTOFF=50) Ketones (0.0-0.3) mM Influenza Type A RNA (NEGATIVE) RSV RNA (INAAT) (NEGATIVE) Influenza Type B RNA (NEGATIVE) SARS-CoV-2 RNA (ELIDIA) (NEGATIVE) 02/05/21 02/06/21 02/06/21 Range/Units 23:57 01:01 01:26 WBC (3.98-10.04) K/mm3 RBC (3.98-5.22) M/mm3 Hgb (11.2-15.7) gm/dl Hct (34.1-44.9) % MCV (79.4-94.8) fl MCH (25.6-32.2) pg MCHC (32.2-35.5) g/dl RDW Std Deviation (36.4-46.3) fL Plt Count (182-369) K/mm3 MPV (9.4-12.3) fl Neut % (Auto) (34.0-71.1) % Lymph % (Auto) (19.3-51.7) % [place] % (Auto) (4.7-12.5) % Eos % (Auto) (0.7-5.8) Baso % (Auto) (0.1-1.2) % Neut # (Auto) (1.56-6.13) K/mm3 Lymph # (Auto) (1.18-3.74) K/mm3 [place] # (Auto) (0.24-0.36) K/mm3 Eos # (Auto) (0.04-0.36) K/mm3 Baso # (Auto) (0.01-0.08) K/mm3 Puncture Site ABG pH (7.35-7.45) ABG pCO2 (35.0-45.0) mmHg ABG pO2 (80.0-100.0) mmHg ABG HCO3 (22.0-26.0) meq/L ABG O2 Saturation (96.0-97.0) % ABG Base Excess (-2-2.0) Rashid Test VBG pH (7.30-7.40) VBG pCO2 (41-51) mmHg VBG pO2 (40-80) mmHG VBG HCO3 (22-26) meq/L VBG O2 Saturation VBG Base Excess (-4.0-2.0) O2 Delivery Device Sodium 136 (136-145) mEq/L Potassium 2.8 L (3.5-5.1) mEq/L Chloride 110 H (98-107) mEq/L Carbon Dioxide 9 L (21-32) mEq/L Anion Gap 19.8 H (5-15) BUN 9 (7-18) mg/dL Creatinine 0.8 (0.55-1.02) mg/dL Est Cr Clr Drug Dosing 88.32 mL/min Estimated GFR (MDRD) > 60 (>60) mL/min BUN/Creatinine Ratio 11.3 L (14-18) Glucose 279 H (70-99) mg/dL POC Glucose 252 H 244 H (70-99) mg/dL Hemoglobin A1c ( - 5.6) % Serum Osmolality (280-300) mosm/kg Calcium 7.3 L (8.5-10.1) mg/dL Phosphorus (2.6-4.7) mg/dL Magnesium 1.5 L (1.8-2.4) mg/dL Total Bilirubin (0.2-1.0) mg/dL AST (15-37) U/L ALT (14-59) U/L Alkaline Phosphatase (46-116) U/L Total Protein (6.4-8.2) g/dl Albumin (3.4-5.0) g/dl Globulin gm/dL Albumin/Globulin Ratio (1-2) TSH 3rd Generation (0.358-3.74) uIU/mL Urine Color (Yellow) Urine Appearance (Clear) Urine pH (5.0-8.0) Ur Specific [place] (1.005-1.030) Urine Protein (Negative) Urine Glucose (UA) (Negative) Urine Ketones (Negative) Urine Occult Blood (Negative) Urine Nitrite (Negative) Urine Bilirubin (Negative) Urine Urobilinogen (0.2-1.0) Ur Leukocyte Esterase (Negative) Urine RBC (0-5) /hpf Urine WBC (0-5) /hpf Ur Squamous Epith Cells (0-5) /hpf Urine Bacteria (FEW) /hpf Urine Mucus (FEW) /hpf Urine Opiates Screen (VUUUNN=220) Ur Buprenorphine Scrn (CUTOFF=10) Ur Oxycodone Screen (GPT5MM=984) Urine Methadone Screen (OYZVUW=946) Ur Propoxyphene Screen (SMNWAT=876) Ur Barbiturates Screen (HMRNBD=175) Ur Tricyclics Screen (AQDQHT=240) Ur Phencyclidine Scrn (CUTOFF=25) Ur Amphetamine Screen (HIJVHF=868) U Methamphetamines Scrn (WNVFQV=220) U Benzodiazepines Scrn (ERTZHI=925) U Cocaine Metab Screen (KGZMZD=378) U Marijuana (THC) Screen (CUTOFF=50) Ketones (0.0-0.3) mM Influenza Type A RNA (NEGATIVE) RSV RNA (INAAT) (NEGATIVE) Influenza Type B RNA (NEGATIVE) SARS-CoV-2 RNA (ELIDIA) (NEGATIVE) 02/06/21 02/06/21 02/06/21 Range/Units 01:58 02:56 03:59 WBC (3.98-10.04) K/mm3 RBC (3.98-5.22) M/mm3 Hgb (11.2-15.7) gm/dl Hct (34.1-44.9) % MCV (79.4-94.8) fl MCH (25.6-32.2) pg MCHC (32.2-35.5) g/dl RDW Std Deviation (36.4-46.3) fL Plt Count (182-369) K/mm3 MPV (9.4-12.3) fl Neut % (Auto) (34.0-71.1) % Lymph % (Auto) (19.3-51.7) % [place] % (Auto) (4.7-12.5) % Eos % (Auto) (0.7-5.8) Baso % (Auto) (0.1-1.2) % Neut # (Auto) (1.56-6.13) K/mm3 Lymph # (Auto) (1.18-3.74) K/mm3 [place] # (Auto) (0.24-0.36) K/mm3 Eos # (Auto) (0.04-0.36) K/mm3 Baso # (Auto) (0.01-0.08) K/mm3 Puncture Site ABG pH (7.35-7.45) ABG pCO2 (35.0-45.0) mmHg ABG pO2 (80.0-100.0) mmHg ABG HCO3 (22.0-26.0) meq/L ABG O2 Saturation (96.0-97.0) % ABG Base Excess (-2-2.0) Rashid Test VBG pH (7.30-7.40) VBG pCO2 (41-51) mmHg VBG pO2 (40-80) mmHG VBG HCO3 (22-26) meq/L VBG O2 Saturation VBG Base Excess (-4.0-2.0) O2 Delivery Device Sodium (136-145) mEq/L Potassium (3.5-5.1) mEq/L Chloride (98-107) mEq/L Carbon Dioxide (21-32) mEq/L Anion Gap (5-15) BUN (7-18) mg/dL Creatinine (0.55-1.02) mg/dL Est Cr Clr Drug Dosing mL/min Estimated GFR (MDRD) (>60) mL/min BUN/Creatinine Ratio (14-18) Glucose (70-99) mg/dL POC Glucose 236 H 227 H 223 H (70-99) mg/dL Hemoglobin A1c ( - 5.6) % Serum Osmolality (280-300) mosm/kg Calcium (8.5-10.1) mg/dL Phosphorus (2.6-4.7) mg/dL Magnesium (1.8-2.4) mg/dL Total Bilirubin (0.2-1.0) mg/dL AST (15-37) U/L ALT (14-59) U/L Alkaline Phosphatase (46-116) U/L Total Protein (6.4-8.2) g/dl Albumin (3.4-5.0) g/dl Globulin gm/dL Albumin/Globulin Ratio (1-2) TSH 3rd Generation (0.358-3.74) uIU/mL Urine Color (Yellow) Urine Appearance (Clear) Urine pH (5.0-8.0) Ur Specific [place] (1.005-1.030) Urine Protein (Negative) Urine Glucose (UA) (Negative) Urine Ketones (Negative) Urine Occult Blood (Negative) Urine Nitrite (Negative) Urine Bilirubin (Negative) Urine Urobilinogen (0.2-1.0) Ur Leukocyte Esterase (Negative) Urine RBC (0-5) /hpf Urine WBC (0-5) /hpf Ur Squamous Epith Cells (0-5) /hpf Urine Bacteria (FEW) /hpf Urine Mucus (FEW) /hpf Urine Opiates Screen (ZCKYNH=094) Ur Buprenorphine Scrn (CUTOFF=10) Ur Oxycodone Screen (EKG0FC=699) Urine Methadone Screen (HZYNRW=412) Ur Propoxyphene Screen (MCGWUC=850) Ur Barbiturates Screen (HQXIOL=904) Ur Tricyclics Screen (OWJWRU=943) Ur Phencyclidine Scrn (CUTOFF=25) Ur Amphetamine Screen (LBIUKU=653) U Methamphetamines Scrn (EATSTB=789) U Benzodiazepines Scrn (CMGTAX=908) U Cocaine Metab Screen (PFSTXE=696) U Marijuana (THC) Screen (CUTOFF=50) Ketones (0.0-0.3) mM Influenza Type A RNA (NEGATIVE) RSV RNA (INAAT) (NEGATIVE) Influenza Type B RNA (NEGATIVE) SARS-CoV-2 RNA (ELIDIA) (NEGATIVE) 02/06/21 02/06/21 02/06/21 Range/Units 05:12 06:15 06:20 WBC 9.65 (3.98-10.04) K/mm3 RBC 4.55 (3.98-5.22) M/mm3 Hgb 12.4 D (11.2-15.7) gm/dl Hct 35.1 (34.1-44.9) % MCV 77.1 L (79.4-94.8) fl MCH 27.3 (25.6-32.2) pg MCHC 35.3 (32.2-35.5) g/dl RDW Std Deviation 44.3 (36.4-46.3) fL Plt Count 216 (182-369) K/mm3 MPV 10.5 (9.4-12.3) fl Neut % (Auto) 77.1 H (34.0-71.1) % Lymph % (Auto) 9.2 L (19.3-51.7) % [place] % (Auto) 12.8 H (4.7-12.5) % Eos % (Auto) 0.2 L (0.7-5.8) Baso % (Auto) 0.2 (0.1-1.2) % Neut # (Auto) 7.43 H (1.56-6.13) K/mm3 Lymph # (Auto) 0.89 L (1.18-3.74) K/mm3 [place] # (Auto) 1.24 H (0.24-0.36) K/mm3 Eos # (Auto) 0.02 L (0.04-0.36) K/mm3 Baso # (Auto) 0.02 (0.01-0.08) K/mm3 Puncture Site ABG pH (7.35-7.45) ABG pCO2 (35.0-45.0) mmHg ABG pO2 (80.0-100.0) mmHg ABG HCO3 (22.0-26.0) meq/L ABG O2 Saturation (96.0-97.0) % ABG Base Excess (-2-2.0) Rashid Test VBG pH (7.30-7.40) VBG pCO2 (41-51) mmHg VBG pO2 (40-80) mmHG VBG HCO3 (22-26) meq/L VBG O2 Saturation VBG Base Excess (-4.0-2.0) O2 Delivery Device Sodium (136-145) mEq/L Potassium (3.5-5.1) mEq/L Chloride (98-107) mEq/L Carbon Dioxide (21-32) mEq/L Anion Gap (5-15) BUN (7-18) mg/dL Creatinine (0.55-1.02) mg/dL Est Cr Clr Drug Dosing mL/min Estimated GFR (MDRD) (>60) mL/min BUN/Creatinine Ratio (14-18) Glucose (70-99) mg/dL POC Glucose 221 H 189 H (70-99) mg/dL Hemoglobin A1c ( - 5.6) % Serum Osmolality (280-300) mosm/kg Calcium (8.5-10.1) mg/dL Phosphorus (2.6-4.7) mg/dL Magnesium (1.8-2.4) mg/dL Total Bilirubin (0.2-1.0) mg/dL AST (15-37) U/L ALT (14-59) U/L Alkaline Phosphatase (46-116) U/L Total Protein (6.4-8.2) g/dl Albumin (3.4-5.0) g/dl Globulin gm/dL Albumin/Globulin Ratio (1-2) TSH 3rd Generation (0.358-3.74) uIU/mL Urine Color (Yellow) Urine Appearance (Clear) Urine pH (5.0-8.0) Ur Specific [place] (1.005-1.030) Urine Protein (Negative) Urine Glucose (UA) (Negative) Urine Ketones (Negative) Urine Occult Blood (Negative) Urine Nitrite (Negative) Urine Bilirubin (Negative) Urine Urobilinogen (0.2-1.0) Ur Leukocyte Esterase (Negative) Urine RBC (0-5) /hpf Urine WBC (0-5) /hpf Ur Squamous Epith Cells (0-5) /hpf Urine Bacteria (FEW) /hpf Urine Mucus (FEW) /hpf Urine Opiates Screen (CTPMRH=372) Ur Buprenorphine Scrn (CUTOFF=10) Ur Oxycodone Screen (IQF4RP=065) Urine Methadone Screen (LCXNQL=529) Ur Propoxyphene Screen (HWKXRQ=611) Ur Barbiturates Screen (ARTKSR=974) Ur Tricyclics Screen (GRCQMK=773) Ur Phencyclidine Scrn (CUTOFF=25) Ur Amphetamine Screen (REOLIS=976) U Methamphetamines Scrn (RZMSVJ=070) U Benzodiazepines Scrn (IXCQRG=489) U Cocaine Metab Screen (XYWXVB=010) U Marijuana (THC) Screen (CUTOFF=50) Ketones (0.0-0.3) mM Influenza Type A RNA (NEGATIVE) RSV RNA (INAAT) (NEGATIVE) Influenza Type B RNA (NEGATIVE) SARS-CoV-2 RNA (ELIDIA) (NEGATIVE) 02/06/21 02/06/21 02/06/21 Range/Units 06:20 06:53 07:56 WBC (3.98-10.04) K/mm3 RBC (3.98-5.22) M/mm3 Hgb (11.2-15.7) gm/dl Hct (34.1-44.9) % MCV (79.4-94.8) fl MCH (25.6-32.2) pg MCHC (32.2-35.5) g/dl RDW Std Deviation (36.4-46.3) fL Plt Count (182-369) K/mm3 MPV (9.4-12.3) fl Neut % (Auto) (34.0-71.1) % Lymph % (Auto) (19.3-51.7) % [place] % (Auto) (4.7-12.5) % Eos % (Auto) (0.7-5.8) Baso % (Auto) (0.1-1.2) % Neut # (Auto) (1.56-6.13) K/mm3 Lymph # (Auto) (1.18-3.74) K/mm3 [place] # (Auto) (0.24-0.36) K/mm3 Eos # (Auto) (0.04-0.36) K/mm3 Baso # (Auto) (0.01-0.08) K/mm3 Puncture Site ABG pH (7.35-7.45) ABG pCO2 (35.0-45.0) mmHg ABG pO2 (80.0-100.0) mmHg ABG HCO3 (22.0-26.0) meq/L ABG O2 Saturation (96.0-97.0) % ABG Base Excess (-2-2.0) Rashid Test VBG pH 7.21 L (7.30-7.40) VBG pCO2 25.1 L (41-51) mmHg VBG pO2 87.0 H (40-80) mmHG VBG HCO3 9.7 L (22-26) meq/L VBG O2 Saturation 98.5 VBG Base Excess -16.8 L (-4.0-2.0) O2 Delivery Device Room air Sodium 135 L (136-145) mEq/L Potassium 2.7 L (3.5-5.1) mEq/L Chloride 109 H (98-107) mEq/L Carbon Dioxide 11 L (21-32) mEq/L Anion Gap 17.7 H (5-15) BUN 9 (7-18) mg/dL Creatinine 0.7 (0.55-1.02) mg/dL Est Cr Clr Drug Dosing 100.94 mL/min Estimated GFR (MDRD) > 60 (>60) mL/min BUN/Creatinine Ratio 12.9 L (14-18) Glucose 204 H (70-99) mg/dL POC Glucose 204 H (70-99) mg/dL Hemoglobin A1c ( - 5.6) % Serum Osmolality (280-300) mosm/kg Calcium 7.3 L (8.5-10.1) mg/dL Phosphorus 0.5 L (2.6-4.7) mg/dL Magnesium 2.6 H (1.8-2.4) mg/dL Total Bilirubin 0.4 (0.2-1.0) mg/dL AST 12 L (15-37) U/L ALT 13 L (14-59) U/L Alkaline Phosphatase 111 (46-116) U/L Total Protein 5.4 L (6.4-8.2) g/dl Albumin 2.9 L (3.4-5.0) g/dl Globulin 2.5 gm/dL Albumin/Globulin Ratio 1.2 (1-2) TSH 3rd Generation 6.572 H (0.358-3.74) uIU/mL Urine Color (Yellow) Urine Appearance (Clear) Urine pH (5.0-8.0) Ur Specific [place] (1.005-1.030) Urine Protein (Negative) Urine Glucose (UA) (Negative) Urine Ketones (Negative) Urine Occult Blood (Negative) Urine Nitrite (Negative) Urine Bilirubin (Negative) Urine Urobilinogen (0.2-1.0) Ur Leukocyte Esterase (Negative) Urine RBC (0-5) /hpf Urine WBC (0-5) /hpf Ur Squamous Epith Cells (0-5) /hpf Urine Bacteria (FEW) /hpf Urine Mucus (FEW) /hpf Urine Opiates Screen (SWTEFB=743) Ur Buprenorphine Scrn (CUTOFF=10) Ur Oxycodone Screen (GHH8AJ=602) Urine Methadone Screen (QUITKL=360) Ur Propoxyphene Screen (SOQWDF=905) Ur Barbiturates Screen (IHAFJP=250) Ur Tricyclics Screen (TBBLVQ=283) Ur Phencyclidine Scrn (CUTOFF=25) Ur Amphetamine Screen (VSHLVD=672) U Methamphetamines Scrn (AXFFJZ=294) U Benzodiazepines Scrn (VOWPGJ=523) U Cocaine Metab Screen (RWVBMV=558) U Marijuana (THC) Screen (CUTOFF=50) Ketones (0.0-0.3) mM Influenza Type A RNA (NEGATIVE) RSV RNA (INAAT) (NEGATIVE) Influenza Type B RNA (NEGATIVE) SARS-CoV-2 RNA (ELIDIA) (NEGATIVE) 02/06/21 Range/Units 07:59 WBC (3.98-10.04) K/mm3 RBC (3.98-5.22) M/mm3 Hgb (11.2-15.7) gm/dl Hct (34.1-44.9) % MCV (79.4-94.8) fl MCH (25.6-32.2) pg MCHC (32.2-35.5) g/dl RDW Std Deviation (36.4-46.3) fL Plt Count (182-369) K/mm3 MPV (9.4-12.3) fl Neut % (Auto) (34.0-71.1) % Lymph % (Auto) (19.3-51.7) % [place] % (Auto) (4.7-12.5) % Eos % (Auto) (0.7-5.8) Baso % (Auto) (0.1-1.2) % Neut # (Auto) (1.56-6.13) K/mm3 Lymph # (Auto) (1.18-3.74) K/mm3 [place] # (Auto) (0.24-0.36) K/mm3 Eos # (Auto) (0.04-0.36) K/mm3 Baso # (Auto) (0.01-0.08) K/mm3 Puncture Site ABG pH (7.35-7.45) ABG pCO2 (35.0-45.0) mmHg ABG pO2 (80.0-100.0) mmHg ABG HCO3 (22.0-26.0) meq/L ABG O2 Saturation (96.0-97.0) % ABG Base Excess (-2-2.0) Rashid Test VBG pH (7.30-7.40) VBG pCO2 (41-51) mmHg VBG pO2 (40-80) mmHG VBG HCO3 (22-26) meq/L VBG O2 Saturation VBG Base Excess (-4.0-2.0) O2 Delivery Device Sodium (136-145) mEq/L Potassium (3.5-5.1) mEq/L Chloride (98-107) mEq/L Carbon Dioxide (21-32) mEq/L Anion Gap (5-15) BUN (7-18) mg/dL Creatinine (0.55-1.02) mg/dL Est Cr Clr Drug Dosing mL/min Estimated GFR (MDRD) (>60) mL/min BUN/Creatinine Ratio (14-18) Glucose (70-99) mg/dL POC Glucose 161 H (70-99) mg/dL Hemoglobin A1c ( - 5.6) % Serum Osmolality (280-300) mosm/kg Calcium (8.5-10.1) mg/dL Phosphorus (2.6-4.7) mg/dL Magnesium (1.8-2.4) mg/dL Total Bilirubin (0.2-1.0) mg/dL AST (15-37) U/L ALT (14-59) U/L Alkaline Phosphatase (46-116) U/L Total Protein (6.4-8.2) g/dl Albumin (3.4-5.0) g/dl Globulin gm/dL Albumin/Globulin Ratio (1-2) TSH 3rd Generation (0.358-3.74) uIU/mL Urine Color (Yellow) Urine Appearance (Clear) Urine pH (5.0-8.0) Ur Specific [place] (1.005-1.030) Urine Protein (Negative) Urine Glucose (UA) (Negative) Urine Ketones (Negative) Urine Occult Blood (Negative) Urine Nitrite (Negative) Urine Bilirubin (Negative) Urine Urobilinogen (0.2-1.0) Ur Leukocyte Esterase (Negative) Urine RBC (0-5) /hpf Urine WBC (0-5) /hpf Ur Squamous Epith Cells (0-5) /hpf Urine Bacteria (FEW) /hpf Urine Mucus (FEW) /hpf Urine Opiates Screen (JKWZVL=050) Ur Buprenorphine Scrn (CUTOFF=10) Ur Oxycodone Screen (CUD0XU=599) Urine Methadone Screen (QQQJUS=799) Ur Propoxyphene Screen (NMCHEE=214) Ur Barbiturates Screen (ENEFVI=966) Ur Tricyclics Screen (QAVEVJ=313) Ur Phencyclidine Scrn (CUTOFF=25) Ur Amphetamine Screen (TSLAIF=800) U Methamphetamines Scrn (GKPWBY=976) U Benzodiazepines Scrn (WVODBI=144) U Cocaine Metab Screen (KHQPZB=956) U Marijuana (THC) Screen (CUTOFF=50) Ketones (0.0-0.3) mM Influenza Type A RNA (NEGATIVE) RSV RNA (INAAT) (NEGATIVE) Influenza Type B RNA (NEGATIVE) SARS-CoV-2 RNA (ELIDIA) (NEGATIVE) Result Diagrams: 02/06/21 06:20 02/06/21 06:20 Sepsis Event Note - Evaluation Sepsis Screening Result: Sepsis Risk - Focused Exam Vital Signs: Vital Signs Temp Pulse Resp BP BP Pulse Ox 02/06/21 08:01 18 115/66 100 02/06/21 08:00 98.1 F 21 H 100 02/06/21 07:01 17 106/64 100 02/06/21 07:00 97.8 F 89 19 106/64 100 02/06/21 06:01 20 100 02/06/21 06:00 97.4 F 89 20 115/66 115/66 100 02/06/21 05:59 21 H 100 02/06/21 05:01 19 100 02/06/21 05:00 97.6 F 93 20 108/66 108/66 100 02/06/21 04:59 16 99 02/06/21 04:01 19 98 02/06/21 04:00 98.1 F 99 18 104/56 L 104/56 L 98 02/06/21 03:59 19 98 02/06/21 03:01 18 98/57 L 99 02/06/21 03:00 98.4 F 98 19 98/57 L 100 02/06/21 02:01 17 106/57 L 100 02/06/21 02:00 98.0 F 100 19 106/57 L 100 02/06/21 01:01 20 112/62 100 02/06/21 01:00 98.7 F 102 H 19 112/62 100 02/06/21 00:31 17 103/59 L 100 02/06/21 00:30 18 100 02/06/21 00:01 18 100 02/06/21 00:00 98.3 F 99 17 103/63 103/59 L 100 02/05/21 23:59 16 100 02/05/21 23:30 17 101/60 99 02/05/21 23:29 18 100 02/05/21 23:01 22 H 100 02/05/21 23:00 98.3 F 96 20 107/63 107/63 100 02/05/21 22:59 17 100 02/05/21 22:30 18 107/64 100 02/05/21 22:29 18 100 02/05/21 22:01 18 100 02/05/21 22:00 98.0 F 98 18 115/63 115/63 100 02/05/21 21:59 19 100 02/05/21 21:40 19 116/62 100 02/05/21 21:39 20 100 02/05/21 21:31 26 H 106/43 L 100 02/05/21 21:30 28 H 100 02/05/21 21:02 21 H 100 02/05/21 21:01 18 116/76 100 02/05/21 21:00 98.1 F 102 H 17 116/76 100 02/05/21 20:54 20 100 - Problem List & Annotations (1) DKA (diabetic ketoacidosis) SNOMED Code(s): 068437520, 334060226 Code(s): E11.10 - TYPE 2 DIABETES MELLITUS WITH KETOACIDOSIS WITHOUT COMA Status: Acute Current Visit: Yes (2) Metabolic acidosis with respiratory alkalosis SNOMED Code(s): 907095798 Code(s): E87.2 - ACIDOSIS; E87.3 - ALKALOSIS Status: Acute Current Visit: Yes - Problem List Review Problem List Initiated/Reviewed/Updated: Yes - My Orders Last 24 Hours: My Active Orders 02/05/21 12:59 Blood Glucose Check, Bedside [RC] Q1HR 02/05/21 13:00 Insulin Regular, Human [HumuLIN R] 100 unit Sodium Chloride 0.9% [Normal Saline] 99 ml IV TITRATE 02/05/21 13:05 Bedrest Bedside Commode [RC] ASDIRECTED Ondansetron [Zofran] 4 mg IV Q4H PRN Resuscitation Status Routine 02/05/21 13:06 Oxygen Therapy [RC] PRN VTE/DVT Education [RC] , Vital Signs [RC] Q1HR 02/05/21 Dinner Nothing per Oral Now Diet [DIET] 02/05/21 20:29 Renew/Continue Urinary Catheter [OM.PC] Routine 02/06/21 02:29 D5 1/2 NS w/ 20 mEq/L KCl 1,000 ml IV ASDIRECTED 02/06/21 08:15 Renew/Continue Central Line Access [OM.PC] Routine 02/06/21 08:35 T4 FREE [CHEM] Routine 02/06/21 08:45 Potassium Chloride [KCl in Water 10 MEQ/100 ML] 10 meq Premix Bag 1 bag IV Q1H 02/06/21 09:00 Enoxaparin [Lovenox] 40 mg SUBCUT DAILY 02/06/21 13:30 Potassium Phosphates 30 mmole Sodium Chloride 0.9% [Normal Saline] 500 ml IV ONETIME - Plan Plan:: 35-year-old female with new onset diabetes presents in diabetic ketoacidosis with a pH less than 7 Diabetic ketoacidosis Metabolic acidosis with partially compensated respiratory alkalosis * Approximately 2-day history of shortness of breath with 7-day history of feeling ill * History of gestational diabetes * Family history of type I diabetic in 2 first-degree relatives * Initial serum blood sugar 426 with ketones of 11.22, bicarb of 5 * Initial anion gap of 32.9 * Initial venous blood glucose of 6.92 * Received 3 L of normal saline in the emergency department * pH did not improve with fluid replacement * Fortunately patient is hemodynamically stable. She is tachypneic and my concern is that she may become fatigued with subsequent respiratory compromise 02/06/2021 35-year-old with new onset diabetes and ketoacidosis continues with every blood sugars and an insulin drip. Patient has had an improvement in her venous pH and is up to 7.21. Bicarb is up to 11. Blood sugars are maintaining proximally in the mid to upper 100s with occasional blood sugars in the low 200s. Patient has had significant hypokalemia and most recent potassium is 2.6. Phosphorus was also significantly low at 0.5. Patient will get 30 mmol of potassium phosphorus and an additional 40 mEq of KCl. Patient was given a bicarb drip of 100 mmol over 2 hours. This did improve her pH. Femoral line was placed in the artery and Dr. López will manage removal likely tomorrow. Anion gap has dropped to 17.7. TSH is elevated at 6.57. This will likely need to be repeated when she is discharged. Plan * Admit to ICU * D5 half-normal saline with 20 mEq/L of KCl at 150- 200 mL/h * Insulin drip titrated to keep blood sugars between 150 and 200 * Fingerstick blood sugars every hour until on subcu insulin * Follow BMP, mag, and venous pH every 4 hours * Follow potassium closely and replenish as necessary. * Follow DKA protocol * Check free T4. * Repeat TSH and free T4 will likely need to be done as an outpatient. * Nutrition and diabetic counseling once stable * N.p.o. until anion gap closes and ketones are normal. * CODE STATUS: Full code * VTE prophylaxis with Lovenox
[2021-02-06] MEDS ORDERED: Enoxaparin 40 MG/0.4 ML Syringe SUBCUT SCH (09:00)
[2021-02-06] MEDS ORDERED: Potassium Phosphates 30 MMOLE in Sodium Chloride 0.9% 500 ML IV ONE (13:30)
--- NOTE | 2021-02-06 13:45 | PCM.SN.2 ---
- Free Text/Narrative Note: Due to concern for placement of the triple-lumen central line placed in the right groin yesterday, a venous blood gas was ordered from the central line. Lab values indicate arterial blood. Distal pulses are intact and the lower extremity appears well-perfused. Plan for removal of central line tomorrow after holding anticoagulation and checking coag values plan for removal and holding direct firm pressure at the insertion site for 20 to 30 minutes.
[2021-02-06] MEDS: D5 1/2 NS w/ 40 mEq/L KCl 1,000 ML IV SCH ×2 (16:49→23:24)
[2021-02-06] MEDS: Acetaminophen 325 MG Tab PO PRN (20:57)
[2021-02-07] MEDS: Potassium Chloride 10 MEQ in Premix Bag 1 BAG IV SCH ×13 (00:39→23:10)
[2021-02-07] MEDS: D5 1/2 NS w/ 40 mEq/L KCl 1,000 ML IV SCH (06:07)
[2021-02-07] MEDS ORDERED: Potassium Phosphates 30 MMOLE in Sodium Chloride 0.9% 500 ML IV ONE (08:00)
[2021-02-07] MEDS: DEXTROSE 10% IV SCH ×6 (12:50→21:43)
[2021-02-07] MEDS: [UNRECOGNIZED DRUG - OTHER] IV SCH ×6 (12:50→21:43)
[2021-02-07] MEDS: POTASSIUM CHLORIDE IV SCH ×6 (12:50→21:43)
[2021-02-07] MEDS: SODIUM CHLORIDE IV SCH ×6 (12:50→21:43)
--- NOTE | 2021-02-07 13:31 | PCM.SN.2 ---
- Free Text/Narrative Note: "ABG" from central line brown port today is more consistent with venous blood gas values. Taking precaution, the 7F central line was removed by me this afternoon after holding prophylactic dose lovenox and checking aPTT and INR. No hemorrhage was noted on removal. Direct firm pressure was held at the insertion site for over 20 minutes. A dry dressing of gauze and tegaderm was applied. Recommended bed rest for a few hours after removal.
--- NOTE | 2021-02-07 14:29 | PCM.PN ---
- General Info Date of Service: 02/07/21 Admission Dx/Problem (Free Text): Admission Diagnosis/Problem Admission Diagnosis/Problem Diabetic ketoacidosis Subjective Update: Pt feels better today. She is hungry. This afternoon, she complains of left ear pain. Denies hearing reduction or discharge from canal. She otherwise denies nausea, vomiting, diarrhea, fever, chills, headache, or dizziness. Will remove Chacko catheter - Review of Systems Systems Review Comment:: Positive for left ear pain. All other systems were reviewed and are negative. - Patient Data Vitals - Most Recent: Last Vital Signs Temp 36.7 C 02/07/21 12:00 Pulse 96 02/07/21 12:00 Resp 21 H 02/07/21 14:00 BP 107/66 02/07/21 12:01 Pulse Ox 98 02/07/21 14:00 Weight - Most Recent: 78.608 kg I&O - Last 24 Hours: Intake & Output 02/06/21 02/07/21 02/07/21 22:59 06:59 14:59 Intake Total 3012 2482 Output Total 1480 1440 1600 Balance 1532 1042 -1600 Lab Results Last 24 Hours: Laboratory Results - last 24 hr 02/06/21 02/06/21 02/06/21 Range/Units 13:40 14:17 15:19 WBC (3.98-10.04) K/mm3 RBC (3.98-5.22) M/mm3 Hgb (11.2-15.7) gm/dl Hct (34.1-44.9) % MCV (79.4-94.8) fl MCH (25.6-32.2) pg MCHC (32.2-35.5) g/dl RDW Std Deviation (36.4-46.3) fL Plt Count (182-369) K/mm3 MPV (9.4-12.3) fl Neut % (Auto) (34.0-71.1) % Lymph % (Auto) (19.3-51.7) % [place] % (Auto) (4.7-12.5) % Eos % (Auto) (0.7-5.8) Baso % (Auto) (0.1-1.2) % Neut # (Auto) (1.56-6.13) K/mm3 Lymph # (Auto) (1.18-3.74) K/mm3 [place] # (Auto) (0.24-0.36) K/mm3 Eos # (Auto) (0.04-0.36) K/mm3 Baso # (Auto) (0.01-0.08) K/mm3 PT (9.7-12.0) SECONDS INR APTT (21.7-31.4) SECONDS Puncture Site ABG pH (7.35-7.45) ABG pCO2 (35.0-45.0) mmHg ABG pO2 (80.0-100.0) mmHg ABG HCO3 (22.0-26.0) meq/L ABG O2 Saturation (96.0-97.0) % ABG Base Excess (-2-2.0) Rashid Test O2 Delivery Device Sodium 134 L (136-145) mEq/L Potassium 2.7 L (3.5-5.1) mEq/L Chloride 108 H (98-107) mEq/L Carbon Dioxide 10 L (21-32) mEq/L Anion Gap 18.7 H (5-15) BUN 7 (7-18) mg/dL Creatinine 0.8 (0.55-1.02) mg/dL Est Cr Clr Drug Dosing 88.32 mL/min Estimated GFR (MDRD) > 60 (>60) mL/min BUN/Creatinine Ratio 8.8 L (14-18) Glucose 247 H (70-99) mg/dL POC Glucose 195 H 212 H (70-99) mg/dL Calcium 7.9 L (8.5-10.1) mg/dL Phosphorus 0.5 L (2.6-4.7) mg/dL Magnesium 2.5 H (1.8-2.4) mg/dL Total Bilirubin (0.2-1.0) mg/dL AST (15-37) U/L ALT (14-59) U/L Alkaline Phosphatase (46-116) U/L Total Protein (6.4-8.2) g/dl Albumin (3.4-5.0) g/dl Globulin gm/dL Albumin/Globulin Ratio (1-2) Ketones (0.0-0.3) mM 02/06/21 02/06/21 02/06/21 Range/Units 16:21 17:01 18:04 WBC (3.98-10.04) K/mm3 RBC (3.98-5.22) M/mm3 Hgb (11.2-15.7) gm/dl Hct (34.1-44.9) % MCV (79.4-94.8) fl MCH (25.6-32.2) pg MCHC (32.2-35.5) g/dl RDW Std Deviation (36.4-46.3) fL Plt Count (182-369) K/mm3 MPV (9.4-12.3) fl Neut % (Auto) (34.0-71.1) % Lymph % (Auto) (19.3-51.7) % [place] % (Auto) (4.7-12.5) % Eos % (Auto) (0.7-5.8) Baso % (Auto) (0.1-1.2) % Neut # (Auto) (1.56-6.13) K/mm3 Lymph # (Auto) (1.18-3.74) K/mm3 [place] # (Auto) (0.24-0.36) K/mm3 Eos # (Auto) (0.04-0.36) K/mm3 Baso # (Auto) (0.01-0.08) K/mm3 PT (9.7-12.0) SECONDS INR APTT (21.7-31.4) SECONDS Puncture Site ABG pH (7.35-7.45) ABG pCO2 (35.0-45.0) mmHg ABG pO2 (80.0-100.0) mmHg ABG HCO3 (22.0-26.0) meq/L ABG O2 Saturation (96.0-97.0) % ABG Base Excess (-2-2.0) Rashid Test O2 Delivery Device Sodium (136-145) mEq/L Potassium (3.5-5.1) mEq/L Chloride (98-107) mEq/L Carbon Dioxide (21-32) mEq/L Anion Gap (5-15) BUN (7-18) mg/dL Creatinine (0.55-1.02) mg/dL Est Cr Clr Drug Dosing mL/min Estimated GFR (MDRD) (>60) mL/min BUN/Creatinine Ratio (14-18) Glucose (70-99) mg/dL POC Glucose 199 H 170 H 155 H (70-99) mg/dL Calcium (8.5-10.1) mg/dL Phosphorus (2.6-4.7) mg/dL Magnesium (1.8-2.4) mg/dL Total Bilirubin (0.2-1.0) mg/dL AST (15-37) U/L ALT (14-59) U/L Alkaline Phosphatase (46-116) U/L Total Protein (6.4-8.2) g/dl Albumin (3.4-5.0) g/dl Globulin gm/dL Albumin/Globulin Ratio (1-2) Ketones (0.0-0.3) mM 02/06/21 02/06/21 02/06/21 Range/Units 19:01 20:01 21:01 WBC (3.98-10.04) K/mm3 RBC (3.98-5.22) M/mm3 Hgb (11.2-15.7) gm/dl Hct (34.1-44.9) % MCV (79.4-94.8) fl MCH (25.6-32.2) pg MCHC (32.2-35.5) g/dl RDW Std Deviation (36.4-46.3) fL Plt Count (182-369) K/mm3 MPV (9.4-12.3) fl Neut % (Auto) (34.0-71.1) % Lymph % (Auto) (19.3-51.7) % [place] % (Auto) (4.7-12.5) % Eos % (Auto) (0.7-5.8) Baso % (Auto) (0.1-1.2) % Neut # (Auto) (1.56-6.13) K/mm3 Lymph # (Auto) (1.18-3.74) K/mm3 [place] # (Auto) (0.24-0.36) K/mm3 Eos # (Auto) (0.04-0.36) K/mm3 Baso # (Auto) (0.01-0.08) K/mm3 PT (9.7-12.0) SECONDS INR APTT (21.7-31.4) SECONDS Puncture Site ABG pH (7.35-7.45) ABG pCO2 (35.0-45.0) mmHg ABG pO2 (80.0-100.0) mmHg ABG HCO3 (22.0-26.0) meq/L ABG O2 Saturation (96.0-97.0) % ABG Base Excess (-2-2.0) Rashid Test O2 Delivery Device Sodium (136-145) mEq/L Potassium (3.5-5.1) mEq/L Chloride (98-107) mEq/L Carbon Dioxide (21-32) mEq/L Anion Gap (5-15) BUN (7-18) mg/dL Creatinine (0.55-1.02) mg/dL Est Cr Clr Drug Dosing mL/min Estimated GFR (MDRD) (>60) mL/min BUN/Creatinine Ratio (14-18) Glucose (70-99) mg/dL POC Glucose 138 H 149 H 214 H (70-99) mg/dL Calcium (8.5-10.1) mg/dL Phosphorus (2.6-4.7) mg/dL Magnesium (1.8-2.4) mg/dL Total Bilirubin (0.2-1.0) mg/dL AST (15-37) U/L ALT (14-59) U/L Alkaline Phosphatase (46-116) U/L Total Protein (6.4-8.2) g/dl Albumin (3.4-5.0) g/dl Globulin gm/dL Albumin/Globulin Ratio (1-2) Ketones (0.0-0.3) mM 02/06/21 02/06/21 02/06/21 Range/Units 21:25 22:16 23:02 WBC (3.98-10.04) K/mm3 RBC (3.98-5.22) M/mm3 Hgb (11.2-15.7) gm/dl Hct (34.1-44.9) % MCV (79.4-94.8) fl MCH (25.6-32.2) pg MCHC (32.2-35.5) g/dl RDW Std Deviation (36.4-46.3) fL Plt Count (182-369) K/mm3 MPV (9.4-12.3) fl Neut % (Auto) (34.0-71.1) % Lymph % (Auto) (19.3-51.7) % [place] % (Auto) (4.7-12.5) % Eos % (Auto) (0.7-5.8) Baso % (Auto) (0.1-1.2) % Neut # (Auto) (1.56-6.13) K/mm3 Lymph # (Auto) (1.18-3.74) K/mm3 [place] # (Auto) (0.24-0.36) K/mm3 Eos # (Auto) (0.04-0.36) K/mm3 Baso # (Auto) (0.01-0.08) K/mm3 PT (9.7-12.0) SECONDS INR APTT (21.7-31.4) SECONDS Puncture Site ABG pH (7.35-7.45) ABG pCO2 (35.0-45.0) mmHg ABG pO2 (80.0-100.0) mmHg ABG HCO3 (22.0-26.0) meq/L ABG O2 Saturation (96.0-97.0) % ABG Base Excess (-2-2.0) Rashid Test O2 Delivery Device Sodium 138 (136-145) mEq/L Potassium 3.0 L (3.5-5.1) mEq/L Chloride 109 H (98-107) mEq/L Carbon Dioxide 11 L (21-32) mEq/L Anion Gap 21.0 H (5-15) BUN 6 L (7-18) mg/dL Creatinine 0.8 (0.55-1.02) mg/dL Est Cr Clr Drug Dosing 88.32 mL/min Estimated GFR (MDRD) > 60 (>60) mL/min BUN/Creatinine Ratio 7.5 L (14-18) Glucose 229 H (70-99) mg/dL POC Glucose 186 H 217 H (70-99) mg/dL Calcium 7.3 L (8.5-10.1) mg/dL Phosphorus (2.6-4.7) mg/dL Magnesium 2.1 (1.8-2.4) mg/dL Total Bilirubin (0.2-1.0) mg/dL AST (15-37) U/L ALT (14-59) U/L Alkaline Phosphatase (46-116) U/L Total Protein (6.4-8.2) g/dl Albumin (3.4-5.0) g/dl Globulin gm/dL Albumin/Globulin Ratio (1-2) Ketones (0.0-0.3) mM 02/07/21 02/07/21 02/07/21 Range/Units 00:04 00:59 01:06 WBC (3.98-10.04) K/mm3 RBC (3.98-5.22) M/mm3 Hgb (11.2-15.7) gm/dl Hct (34.1-44.9) % MCV (79.4-94.8) fl MCH (25.6-32.2) pg MCHC (32.2-35.5) g/dl RDW Std Deviation (36.4-46.3) fL Plt Count (182-369) K/mm3 MPV (9.4-12.3) fl Neut % (Auto) (34.0-71.1) % Lymph % (Auto) (19.3-51.7) % [place] % (Auto) (4.7-12.5) % Eos % (Auto) (0.7-5.8) Baso % (Auto) (0.1-1.2) % Neut # (Auto) (1.56-6.13) K/mm3 Lymph # (Auto) (1.18-3.74) K/mm3 [place] # (Auto) (0.24-0.36) K/mm3 Eos # (Auto) (0.04-0.36) K/mm3 Baso # (Auto) (0.01-0.08) K/mm3 PT (9.7-12.0) SECONDS INR APTT (21.7-31.4) SECONDS Puncture Site ABG pH (7.35-7.45) ABG pCO2 (35.0-45.0) mmHg ABG pO2 (80.0-100.0) mmHg ABG HCO3 (22.0-26.0) meq/L ABG O2 Saturation (96.0-97.0) % ABG Base Excess (-2-2.0) Rashid Test O2 Delivery Device Sodium 139 (136-145) mEq/L Potassium 3.3 L (3.5-5.1) mEq/L Chloride 111 H (98-107) mEq/L Carbon Dioxide 14 L (21-32) mEq/L Anion Gap 17.3 H (5-15) BUN 7 (7-18) mg/dL Creatinine 0.9 (0.55-1.02) mg/dL Est Cr Clr Drug Dosing 78.51 mL/min Estimated GFR (MDRD) > 60 (>60) mL/min BUN/Creatinine Ratio 7.8 L (14-18) Glucose 240 H (70-99) mg/dL POC Glucose 235 H 218 H (70-99) mg/dL Calcium 7.5 L (8.5-10.1) mg/dL Phosphorus (2.6-4.7) mg/dL Magnesium (1.8-2.4) mg/dL Total Bilirubin (0.2-1.0) mg/dL AST (15-37) U/L ALT (14-59) U/L Alkaline Phosphatase (46-116) U/L Total Protein (6.4-8.2) g/dl Albumin (3.4-5.0) g/dl Globulin gm/dL Albumin/Globulin Ratio (1-2) Ketones (0.0-0.3) mM 02/07/21 02/07/21 02/07/21 Range/Units 01:55 03:00 03:56 WBC (3.98-10.04) K/mm3 RBC (3.98-5.22) M/mm3 Hgb (11.2-15.7) gm/dl Hct (34.1-44.9) % MCV (79.4-94.8) fl MCH (25.6-32.2) pg MCHC (32.2-35.5) g/dl RDW Std Deviation (36.4-46.3) fL Plt Count (182-369) K/mm3 MPV (9.4-12.3) fl Neut % (Auto) (34.0-71.1) % Lymph % (Auto) (19.3-51.7) % [place] % (Auto) (4.7-12.5) % Eos % (Auto) (0.7-5.8) Baso % (Auto) (0.1-1.2) % Neut # (Auto) (1.56-6.13) K/mm3 Lymph # (Auto) (1.18-3.74) K/mm3 [place] # (Auto) (0.24-0.36) K/mm3 Eos # (Auto) (0.04-0.36) K/mm3 Baso # (Auto) (0.01-0.08) K/mm3 PT (9.7-12.0) SECONDS INR APTT (21.7-31.4) SECONDS Puncture Site ABG pH (7.35-7.45) ABG pCO2 (35.0-45.0) mmHg ABG pO2 (80.0-100.0) mmHg ABG HCO3 (22.0-26.0) meq/L ABG O2 Saturation (96.0-97.0) % ABG Base Excess (-2-2.0) Rashid Test O2 Delivery Device Sodium (136-145) mEq/L Potassium (3.5-5.1) mEq/L Chloride (98-107) mEq/L Carbon Dioxide (21-32) mEq/L Anion Gap (5-15) BUN (7-18) mg/dL Creatinine (0.55-1.02) mg/dL Est Cr Clr Drug Dosing mL/min Estimated GFR (MDRD) (>60) mL/min BUN/Creatinine Ratio (14-18) Glucose (70-99) mg/dL POC Glucose 220 H 170 H 140 H (70-99) mg/dL Calcium (8.5-10.1) mg/dL Phosphorus (2.6-4.7) mg/dL Magnesium (1.8-2.4) mg/dL Total Bilirubin (0.2-1.0) mg/dL AST (15-37) U/L ALT (14-59) U/L Alkaline Phosphatase (46-116) U/L Total Protein (6.4-8.2) g/dl Albumin (3.4-5.0) g/dl Globulin gm/dL Albumin/Globulin Ratio (1-2) Ketones (0.0-0.3) mM 02/07/21 02/07/21 02/07/21 Range/Units 04:57 05:50 05:52 WBC 6.56 (3.98-10.04) K/mm3 RBC 4.32 (3.98-5.22) M/mm3 Hgb 11.9 (11.2-15.7) gm/dl Hct 33.4 L (34.1-44.9) % MCV 77.3 L (79.4-94.8) fl MCH 27.5 (25.6-32.2) pg MCHC 35.6 H (32.2-35.5) g/dl RDW Std Deviation 45.9 (36.4-46.3) fL Plt Count 201 (182-369) K/mm3 MPV 10.0 (9.4-12.3) fl Neut % (Auto) 67.5 (34.0-71.1) % Lymph % (Auto) 16.9 L (19.3-51.7) % [place] % (Auto) 14.0 H (4.7-12.5) % Eos % (Auto) 0.9 (0.7-5.8) Baso % (Auto) 0.5 (0.1-1.2) % Neut # (Auto) 4.43 (1.56-6.13) K/mm3 Lymph # (Auto) 1.11 L (1.18-3.74) K/mm3 [place] # (Auto) 0.92 H (0.24-0.36) K/mm3 Eos # (Auto) 0.06 (0.04-0.36) K/mm3 Baso # (Auto) 0.03 (0.01-0.08) K/mm3 PT (9.7-12.0) SECONDS INR APTT (21.7-31.4) SECONDS Puncture Site ABG pH (7.35-7.45) ABG pCO2 (35.0-45.0) mmHg ABG pO2 (80.0-100.0) mmHg ABG HCO3 (22.0-26.0) meq/L ABG O2 Saturation (96.0-97.0) % ABG Base Excess (-2-2.0) Rashid Test O2 Delivery Device Sodium (136-145) mEq/L Potassium (3.5-5.1) mEq/L Chloride (98-107) mEq/L Carbon Dioxide (21-32) mEq/L Anion Gap (5-15) BUN (7-18) mg/dL Creatinine (0.55-1.02) mg/dL Est Cr Clr Drug Dosing mL/min Estimated GFR (MDRD) (>60) mL/min BUN/Creatinine Ratio (14-18) Glucose (70-99) mg/dL POC Glucose 148 H 158 H (70-99) mg/dL Calcium (8.5-10.1) mg/dL Phosphorus (2.6-4.7) mg/dL Magnesium (1.8-2.4) mg/dL Total Bilirubin (0.2-1.0) mg/dL AST (15-37) U/L ALT (14-59) U/L Alkaline Phosphatase (46-116) U/L Total Protein (6.4-8.2) g/dl Albumin (3.4-5.0) g/dl Globulin gm/dL Albumin/Globulin Ratio (1-2) Ketones (0.0-0.3) mM 02/07/21 02/07/21 02/07/21 Range/Units 05:52 05:52 05:56 WBC (3.98-10.04) K/mm3 RBC (3.98-5.22) M/mm3 Hgb (11.2-15.7) gm/dl Hct (34.1-44.9) % MCV (79.4-94.8) fl MCH (25.6-32.2) pg MCHC (32.2-35.5) g/dl RDW Std Deviation (36.4-46.3) fL Plt Count (182-369) K/mm3 MPV (9.4-12.3) fl Neut % (Auto) (34.0-71.1) % Lymph % (Auto) (19.3-51.7) % [place] % (Auto) (4.7-12.5) % Eos % (Auto) (0.7-5.8) Baso % (Auto) (0.1-1.2) % Neut # (Auto) (1.56-6.13) K/mm3 Lymph # (Auto) (1.18-3.74) K/mm3 [place] # (Auto) (0.24-0.36) K/mm3 Eos # (Auto) (0.04-0.36) K/mm3 Baso # (Auto) (0.01-0.08) K/mm3 PT 10.3 (9.7-12.0) SECONDS INR 0.93 APTT 25.3 (21.7-31.4) SECONDS Puncture Site ABG pH (7.35-7.45) ABG pCO2 (35.0-45.0) mmHg ABG pO2 (80.0-100.0) mmHg ABG HCO3 (22.0-26.0) meq/L ABG O2 Saturation (96.0-97.0) % ABG Base Excess (-2-2.0) Rashid Test O2 Delivery Device Sodium 138 (136-145) mEq/L Potassium 3.1 L (3.5-5.1) mEq/L Chloride 109 H (98-107) mEq/L Carbon Dioxide 15 L (21-32) mEq/L Anion Gap 17.1 H (5-15) BUN 4 L (7-18) mg/dL Creatinine 0.7 (0.55-1.02) mg/dL Est Cr Clr Drug Dosing 100.94 mL/min Estimated GFR (MDRD) > 60 (>60) mL/min BUN/Creatinine Ratio 5.7 L (14-18) Glucose 165 H (70-99) mg/dL POC Glucose (70-99) mg/dL Calcium 7.8 L (8.5-10.1) mg/dL Phosphorus 1.0 L (2.6-4.7) mg/dL Magnesium 2.2 (1.8-2.4) mg/dL Total Bilirubin 0.6 (0.2-1.0) mg/dL AST 13 L (15-37) U/L ALT 13 L (14-59) U/L Alkaline Phosphatase 102 (46-116) U/L Total Protein 5.5 L (6.4-8.2) g/dl Albumin 2.7 L (3.4-5.0) g/dl Globulin 2.8 gm/dL Albumin/Globulin Ratio 1.0 (1-2) Ketones 0.82 (0.0-0.3) mM 02/07/21 02/07/21 02/07/21 Range/Units 06:55 08:03 09:05 WBC (3.98-10.04) K/mm3 RBC (3.98-5.22) M/mm3 Hgb (11.2-15.7) gm/dl Hct (34.1-44.9) % MCV (79.4-94.8) fl MCH (25.6-32.2) pg MCHC (32.2-35.5) g/dl RDW Std Deviation (36.4-46.3) fL Plt Count (182-369) K/mm3 MPV (9.4-12.3) fl Neut % (Auto) (34.0-71.1) % Lymph % (Auto) (19.3-51.7) % [place] % (Auto) (4.7-12.5) % Eos % (Auto) (0.7-5.8) Baso % (Auto) (0.1-1.2) % Neut # (Auto) (1.56-6.13) K/mm3 Lymph # (Auto) (1.18-3.74) K/mm3 [place] # (Auto) (0.24-0.36) K/mm3 Eos # (Auto) (0.04-0.36) K/mm3 Baso # (Auto) (0.01-0.08) K/mm3 PT (9.7-12.0) SECONDS INR APTT (21.7-31.4) SECONDS Puncture Site ABG pH (7.35-7.45) ABG pCO2 (35.0-45.0) mmHg ABG pO2 (80.0-100.0) mmHg ABG HCO3 (22.0-26.0) meq/L ABG O2 Saturation (96.0-97.0) % ABG Base Excess (-2-2.0) Rashid Test O2 Delivery Device Sodium (136-145) mEq/L Potassium (3.5-5.1) mEq/L Chloride (98-107) mEq/L Carbon Dioxide (21-32) mEq/L Anion Gap (5-15) BUN (7-18) mg/dL Creatinine (0.55-1.02) mg/dL Est Cr Clr Drug Dosing mL/min Estimated GFR (MDRD) (>60) mL/min BUN/Creatinine Ratio (14-18) Glucose (70-99) mg/dL POC Glucose 163 H 179 H 154 H (70-99) mg/dL Calcium (8.5-10.1) mg/dL Phosphorus (2.6-4.7) mg/dL Magnesium (1.8-2.4) mg/dL Total Bilirubin (0.2-1.0) mg/dL AST (15-37) U/L ALT (14-59) U/L Alkaline Phosphatase (46-116) U/L Total Protein (6.4-8.2) g/dl Albumin (3.4-5.0) g/dl Globulin gm/dL Albumin/Globulin Ratio (1-2) Ketones (0.0-0.3) mM 02/07/21 02/07/21 02/07/21 Range/Units 09:30 10:14 10:19 WBC (3.98-10.04) K/mm3 RBC (3.98-5.22) M/mm3 Hgb (11.2-15.7) gm/dl Hct (34.1-44.9) % MCV (79.4-94.8) fl MCH (25.6-32.2) pg MCHC (32.2-35.5) g/dl RDW Std Deviation (36.4-46.3) fL Plt Count (182-369) K/mm3 MPV (9.4-12.3) fl Neut % (Auto) (34.0-71.1) % Lymph % (Auto) (19.3-51.7) % [place] % (Auto) (4.7-12.5) % Eos % (Auto) (0.7-5.8) Baso % (Auto) (0.1-1.2) % Neut # (Auto) (1.56-6.13) K/mm3 Lymph # (Auto) (1.18-3.74) K/mm3 [place] # (Auto) (0.24-0.36) K/mm3 Eos # (Auto) (0.04-0.36) K/mm3 Baso # (Auto) (0.01-0.08) K/mm3 PT (9.7-12.0) SECONDS INR APTT (21.7-31.4) SECONDS Puncture Site Line ABG pH 7.37 (7.35-7.45) ABG pCO2 23.6 L (35.0-45.0) mmHg ABG pO2 34.0 L* (80.0-100.0) mmHg ABG HCO3 13.2 L (22.0-26.0) meq/L ABG O2 Saturation 82.8 L (96.0-97.0) % ABG Base Excess -10.3 L (-2-2.0) Rashid Test Positive O2 Delivery Device Room air Sodium 139 (136-145) mEq/L Potassium 3.4 L (3.5-5.1) mEq/L Chloride 109 H (98-107) mEq/L Carbon Dioxide 15 L (21-32) mEq/L Anion Gap 18.4 H (5-15) BUN 4 L (7-18) mg/dL Creatinine 0.7 (0.55-1.02) mg/dL Est Cr Clr Drug Dosing 100.94 mL/min Estimated GFR (MDRD) > 60 (>60) mL/min BUN/Creatinine Ratio 5.7 L (14-18) Glucose 152 H (70-99) mg/dL POC Glucose 152 H (70-99) mg/dL Calcium 7.7 L (8.5-10.1) mg/dL Phosphorus (2.6-4.7) mg/dL Magnesium (1.8-2.4) mg/dL Total Bilirubin (0.2-1.0) mg/dL AST (15-37) U/L ALT (14-59) U/L Alkaline Phosphatase (46-116) U/L Total Protein (6.4-8.2) g/dl Albumin (3.4-5.0) g/dl Globulin gm/dL Albumin/Globulin Ratio (1-2) Ketones (0.0-0.3) mM 02/07/21 02/07/21 02/07/21 Range/Units 11:10 12:03 13:14 WBC (3.98-10.04) K/mm3 RBC (3.98-5.22) M/mm3 Hgb (11.2-15.7) gm/dl Hct (34.1-44.9) % MCV (79.4-94.8) fl MCH (25.6-32.2) pg MCHC (32.2-35.5) g/dl RDW Std Deviation (36.4-46.3) fL Plt Count (182-369) K/mm3 MPV (9.4-12.3) fl Neut % (Auto) (34.0-71.1) % Lymph % (Auto) (19.3-51.7) % [place] % (Auto) (4.7-12.5) % Eos % (Auto) (0.7-5.8) Baso % (Auto) (0.1-1.2) % Neut # (Auto) (1.56-6.13) K/mm3 Lymph # (Auto) (1.18-3.74) K/mm3 [place] # (Auto) (0.24-0.36) K/mm3 Eos # (Auto) (0.04-0.36) K/mm3 Baso # (Auto) (0.01-0.08) K/mm3 PT (9.7-12.0) SECONDS INR APTT (21.7-31.4) SECONDS Puncture Site ABG pH (7.35-7.45) ABG pCO2 (35.0-45.0) mmHg ABG pO2 (80.0-100.0) mmHg ABG HCO3 (22.0-26.0) meq/L ABG O2 Saturation (96.0-97.0) % ABG Base Excess (-2-2.0) Rashid Test O2 Delivery Device Sodium (136-145) mEq/L Potassium (3.5-5.1) mEq/L Chloride (98-107) mEq/L Carbon Dioxide (21-32) mEq/L Anion Gap (5-15) BUN (7-18) mg/dL Creatinine (0.55-1.02) mg/dL Est Cr Clr Drug Dosing mL/min Estimated GFR (MDRD) (>60) mL/min BUN/Creatinine Ratio (14-18) Glucose (70-99) mg/dL POC Glucose 154 H 166 H 135 H (70-99) mg/dL Calcium (8.5-10.1) mg/dL Phosphorus (2.6-4.7) mg/dL Magnesium (1.8-2.4) mg/dL Total Bilirubin (0.2-1.0) mg/dL AST (15-37) U/L ALT (14-59) U/L Alkaline Phosphatase (46-116) U/L Total Protein (6.4-8.2) g/dl Albumin (3.4-5.0) g/dl Globulin gm/dL Albumin/Globulin Ratio (1-2) Ketones (0.0-0.3) mM 02/07/ Range/Units 13:54 WBC (3.98-10.04) K/mm3 RBC (3.98-5.22) M/mm3 Hgb (11.2-15.7) gm/dl Hct (34.1-44.9) % MCV (79.4-94.8) fl MCH (25.6-32.2) pg MCHC (32.2-35.5) g/dl RDW Std Deviation (36.4-46.3) fL Plt Count (182-369) K/mm3 MPV (9.4-12.3) fl Neut % (Auto) (34.0-71.1) % Lymph % (Auto) (19.3-51.7) % [place] % (Auto) (4.7-12.5) % Eos % (Auto) (0.7-5.8) Baso % (Auto) (0.1-1.2) % Neut # (Auto) (1.56-6.13) K/mm3 Lymph # (Auto) (1.18-3.74) K/mm3 [place] # (Auto) (0.24-0.36) K/mm3 Eos # (Auto) (0.04-0.36) K/mm3 Baso # (Auto) (0.01-0.08) K/mm3 PT (9.7-12.0) SECONDS INR APTT (21.7-31.4) SECONDS Puncture Site ABG pH (7.35-7.45) ABG pCO2 (35.0-45.0) mmHg ABG pO2 (80.0-100.0) mmHg ABG HCO3 (22.0-26.0) meq/L ABG O2 Saturation (96.0-97.0) % ABG Base Excess (-2-2.0) Rashid Test O2 Delivery Device Sodium (136-145) mEq/L Potassium (3.5-5.1) mEq/L Chloride (98-107) mEq/L Carbon Dioxide (21-32) mEq/L Anion Gap (5-15) BUN (7-18) mg/dL Creatinine (0.55-1.02) mg/dL Est Cr Clr Drug Dosing mL/min Estimated GFR (MDRD) (>60) mL/min BUN/Creatinine Ratio (14-18) Glucose (70-99) mg/dL POC Glucose 165 H (70-99) mg/dL Calcium (8.5-10.1) mg/dL Phosphorus (2.6-4.7) mg/dL Magnesium (1.8-2.4) mg/dL Total Bilirubin (0.2-1.0) mg/dL AST (15-37) U/L ALT (14-59) U/L Alkaline Phosphatase (46-116) U/L Total Protein (6.4-8.2) g/dl Albumin (3.4-5.0) g/dl Globulin gm/dL Albumin/Globulin Ratio (1-2) Ketones (0.0-0.3) mM Med Orders - Current: Current Medications Acetaminophen (Acetaminophen 325 Mg Tab) 650 mg PO Q4H PRN PRN Reason: Pain/Fever Last Admin: 02/06/21 20:57 Dose: 650 mg Documented by: Amoxicillin/Clavulanate Potassium (Amoxicillin/Clavulanate K 875-125 Mg Tab) 1 tab PO Q12HR [facility] Stop: 02/12/21 23:59 Enoxaparin Sodium (Enoxaparin 40 Mg/0.4 Ml Syringe) 40 mg SUBCUT DAILY [facility] Insulin Human Regular 100 unit (/ Sodium Chloride) 100 mls @ 7.657 mls/hr IV TITRATE [facility]; Protocol Last Titration: 02/07/21 13:00 Dose: 0 units/kg/hr, 0 mls/hr Documented by: Sodium Chloride 154 meq/Potassium Chloride 40 meq/Dextrose/Water 1,058.5 mls @ 125 mls/hr IV Q8H [facility] Last Admin: 02/07/21 12:50 Dose: 125 mls/hr Documented by: Ondansetron HCl (Ondansetron 4 Mg/2 Ml Sdv) 4 mg IV Q4H PRN PRN Reason: Nausea/Vomiting Last Admin: 02/06/21 10:06 Dose: 4 mg Documented by: Sodium Chloride (Sodium Chloride 0.9% 10 Ml Syringe) 10 ml FLUSH ASDIRECTED PRN PRN Reason: Keep Vein Open Last Admin: 02/05/21 08:37 Dose: 10 ml Documented by: Discontinued Medications Enoxaparin Sodium (Enoxaparin 40 Mg/0.4 Ml Syringe) 40 mg SUBCUT DAILY [facility] Last Admin: 02/06/21 09:18 Dose: 40 mg Documented by: Sodium Chloride (Normal Saline) 2,000 mls @ 1,000 mls/hr IV .BOLUS [facility] Last Admin: 02/05/21 08:37 Dose: 1,000 mls/hr Documented by: Lactated Ringer's (Ringers, Lactated) 1,000 mls @ 1,000 mls/hr IV .BOLUS ONE Stop: 02/05/21 11:48 Last Admin: 02/05/21 10:58 Dose: 1,000 mls/hr Documented by: Lactated Ringer's (Ringers, Lactated) 1,000 mls @ 1,000 mls/hr IV .BOLUS ONE Stop: 02/05/21 13:14 Last Admin: 02/05/21 12:20 Dose: 1,000 mls/hr Documented by: Potassium Chloride/Sodium Chloride (1/2 Ns With 20 Meq Kcl) 1,000 mls @ 500 mls/hr IV ASDIRECTED [facility] Last Admin: 02/05/21 14:01 Dose: 500 mls/hr Documented by: Sodium Bicarbonate 100 meq/Potassium Chloride 20 meq/Sterile Water 510 mls @ 255 mls/hr IV ONETIME ONE Stop: 02/05/21 15:59 Last Admin: 02/05/21 15:17 Dose: 255 mls/hr Documented by: Potassium Chloride 10 meq/ (Premix) 100 mls @ 100 mls/hr IV Q1H [facility] Stop: 02/05/21 18:59 Last Admin: 02/05/21 21:11 Dose: 100 mls/hr Documented by: Potassium Chloride/Dextrose/Sod Cl (D5 1/2 Ns W/ 20 Meq/L Kcl) 1,000 mls @ 200 mls/hr IV ASDIRECTED [facility] Last Admin: 02/05/21 22:20 Dose: 200 mls/hr Documented by: Potassium Chloride 10 meq/ (Premix) 100 mls @ 100 mls/hr IV Q1H [facility] Stop: 02/05/21 22:59 Last Admin: 02/05/21 22:09 Dose: 100 mls/hr Documented by: Potassium Chloride 10 meq/ (Premix) 100 mls @ 100 mls/hr IV Q1H [facility] Stop: 02/06/21 01:59 Last Admin: 02/06/21 01:16 Dose: 100 mls/hr Documented by: Magnesium Sulfate 4 gm/ Premix 50 mls @ 12.5 mls/hr IV ONETIME ONE Stop: 02/06/21 05:29 Magnesium Sulfate 4 gm/ Premix 50 mls @ 12.5 mls/hr IV ONETIME ONE Stop: 02/06/21 06:59 Last Admin: 02/06/21 02:42 Dose: 12.5 mls/hr Documented by: Sodium Chloride (Normal Saline) Confirm Administered Dose 100 mls @ as directed .ROUTE .STK-MED ONE Stop: 02/06/21 01:21 Last Admin: 02/06/21 02:50 Dose: Not Given Documented by: Potassium Chloride/Dextrose/Sod Cl (D5 1/2 Ns W/ 20 Meq/L Kcl) 1,000 mls @ 150 mls/hr IV ASDIRECTED [facility] Last Infusion: 02/06/21 11:25 Dose: 150 mls/hr Documented by: Potassium Chloride 10 meq/ (Premix) 100 mls @ 100 mls/hr IV Q1H [facility] Stop: 02/06/21 08:44 Last Admin: 02/06/21 02:38 Dose: 100 mls/hr Documented by: Potassium Chloride 10 meq/ (Premix) 100 mls @ 200 mls/hr IV ASDIRECTED [facility] Stop: 02/06/21 06:30 Last Admin: 02/06/21 05:48 Dose: 200 mls/hr Documented by: Potassium Chloride 10 meq/ (Premix) 100 mls @ 100 mls/hr IV Q1H [facility] Stop: 02/06/21 12:59 Last Admin: 02/06/21 12:14 Dose: 100 mls/hr Documented by: Potassium Phosphate 30 mmole/ (Sodium Chloride) 510 mls @ 102 mls/hr IV ONETIME ONE Stop: 02/06/21 18:29 Last Admin: 02/06/21 13:51 Dose: 102 mls/hr Documented by: Potassium Chloride 10 meq/ (Premix) 100 mls @ 100 mls/hr IV Q1H [facility] Stop: 02/06/21 19:29 Last Admin: 02/06/21 19:34 Dose: 100 mls/hr Documented by: Potassium Chloride/Dextrose/Sod Cl (D5 1/2 Ns W/ 40 Meq/L Kcl) 1,000 mls @ 150 mls/hr IV ASDIRECTED [facility] Stop: 02/07/21 13:00 Last Admin: 02/07/21 06:07 Dose: 150 mls/hr Documented by: Potassium Chloride 10 meq/ (Premix) 100 mls @ 100 mls/hr IV Q1H [facility] Stop: 02/07/21 02:29 Last Admin: 02/07/21 01:45 Dose: 100 mls/hr Documented by: Potassium Chloride 10 meq/ (Premix) 100 mls @ 100 mls/hr IV Q1H [facility] Stop: 02/07/21 06:59 Last Admin: 02/07/21 06:03 Dose: 100 mls/hr Documented by: Potassium Chloride 10 meq/ (Premix) 100 mls @ 100 mls/hr IV Q1H [facility] Stop: 02/07/21 10:59 Last Admin: 02/07/21 11:00 Dose: 100 mls/hr Documented by: Potassium Phosphate 30 mmole/ (Sodium Chloride) 510 mls @ 102 mls/hr IV ONETIME ONE Stop: 02/07/21 12:59 Last Admin: 02/07/21 08:08 Dose: 102 mls/hr Documented by: Insulin Human Regular (Insulin Regular, Human 100 Units/Ml 3 Ml Vial) 7 unit IV ONETIME ONE Stop: 02/05/21 13:31 Last Admin: 02/05/21 13:57 Dose: 7 unit Documented by: - Exam Central Line Total Time: 1Days 17Hours Urinary Catheter Total Time: 1Days 21Hours Physical Findings Comments:: Physical Exam: General: No acute distress HEENT: Conjunctiva Clear, EOMI, Mucosa Moist & [place]. Left ear external canal erythema but no discharge. Neck: Supple, Trachea Midline, NO JVD Lungs: CTA, normal Respiratory Effort, no Wheezing Cardiovascular: Regular Rate, Regular Rhythm GI/Abdominal Exam: Normal Bowel Sounds, Soft, Non-Tender, No Organomegaly, No Distention, No Abnormal Bruit, No Mass Extremities: Normal Inspection, Non-Tender, No Pedal Edema, Normal Capillary Refill Skin: Warm, Dry, Intact Neurology: A+O x 3, no focal neurological deficits Psychiatric: Normal Mood - Patient Data Lab Results Last 24 hrs: Laboratory Results - last 24 hr 02/06/21 02/06/21 02/06/21 Range/Units 13:40 14:17 15:19 WBC (3.98-10.04) K/mm3 RBC (3.98-5.22) M/mm3 Hgb (11.2-15.7) gm/dl Hct (34.1-44.9) % MCV (79.4-94.8) fl MCH (25.6-32.2) pg MCHC (32.2-35.5) g/dl RDW Std Deviation (36.4-46.3) fL Plt Count (182-369) K/mm3 MPV (9.4-12.3) fl Neut % (Auto) (34.0-71.1) % Lymph % (Auto) (19.3-51.7) % [place] % (Auto) (4.7-12.5) % Eos % (Auto) (0.7-5.8) Baso % (Auto) (0.1-1.2) % Neut # (Auto) (1.56-6.13) K/mm3 Lymph # (Auto) (1.18-3.74) K/mm3 [place] # (Auto) (0.24-0.36) K/mm3 Eos # (Auto) (0.04-0.36) K/mm3 Baso # (Auto) (0.01-0.08) K/mm3 PT (9.7-12.0) SECONDS INR APTT (21.7-31.4) SECONDS Puncture Site ABG pH (7.35-7.45) ABG pCO2 (35.0-45.0) mmHg ABG pO2 (80.0-100.0) mmHg ABG HCO3 (22.0-26.0) meq/L ABG O2 Saturation (96.0-97.0) % ABG Base Excess (-2-2.0) Rashid Test O2 Delivery Device Sodium 134 L (136-145) mEq/L Potassium 2.7 L (3.5-5.1) mEq/L Chloride 108 H (98-107) mEq/L Carbon Dioxide 10 L (21-32) mEq/L Anion Gap 18.7 H (5-15) BUN 7 (7-18) mg/dL Creatinine 0.8 (0.55-1.02) mg/dL Est Cr Clr Drug Dosing 88.32 mL/min Estimated GFR (MDRD) > 60 (>60) mL/min BUN/Creatinine Ratio 8.8 L (14-18) Glucose 247 H (70-99) mg/dL POC Glucose 195 H 212 H (70-99) mg/dL Calcium 7.9 L (8.5-10.1) mg/dL Phosphorus 0.5 L (2.6-4.7) mg/dL Magnesium 2.5 H (1.8-2.4) mg/dL Total Bilirubin (0.2-1.0) mg/dL AST (15-37) U/L ALT (14-59) U/L Alkaline Phosphatase (46-116) U/L Total Protein (6.4-8.2) g/dl Albumin (3.4-5.0) g/dl Globulin gm/dL Albumin/Globulin Ratio (1-2) Ketones (0.0-0.3) mM 02/06/21 02/06/21 02/06/21 Range/Units 16:21 17:01 18:04 WBC (3.98-10.04) K/mm3 RBC (3.98-5.22) M/mm3 Hgb (11.2-15.7) gm/dl Hct (34.1-44.9) % MCV (79.4-94.8) fl MCH (25.6-32.2) pg MCHC (32.2-35.5) g/dl RDW Std Deviation (36.4-46.3) fL Plt Count (182-369) K/mm3 MPV (9.4-12.3) fl Neut % (Auto) (34.0-71.1) % Lymph % (Auto) (19.3-51.7) % [place] % (Auto) (4.7-12.5) % Eos % (Auto) (0.7-5.8) Baso % (Auto) (0.1-1.2) % Neut # (Auto) (1.56-6.13) K/mm3 Lymph # (Auto) (1.18-3.74) K/mm3 [place] # (Auto) (0.24-0.36) K/mm3 Eos # (Auto) (0.04-0.36) K/mm3 Baso # (Auto) (0.01-0.08) K/mm3 PT (9.7-12.0) SECONDS INR APTT (21.7-31.4) SECONDS Puncture Site ABG pH (7.35-7.45) ABG pCO2 (35.0-45.0) mmHg ABG pO2 (80.0-100.0) mmHg ABG HCO3 (22.0-26.0) meq/L ABG O2 Saturation (96.0-97.0) % ABG Base Excess (-2-2.0) Rashid Test O2 Delivery Device Sodium (136-145) mEq/L Potassium (3.5-5.1) mEq/L Chloride (98-107) mEq/L Carbon Dioxide (21-32) mEq/L Anion Gap (5-15) BUN (7-18) mg/dL Creatinine (0.55-1.02) mg/dL Est Cr Clr Drug Dosing mL/min Estimated GFR (MDRD) (>60) mL/min BUN/Creatinine Ratio (14-18) Glucose (70-99) mg/dL POC Glucose 199 H 170 H 155 H (70-99) mg/dL Calcium (8.5-10.1) mg/dL Phosphorus (2.6-4.7) mg/dL Magnesium (1.8-2.4) mg/dL Total Bilirubin (0.2-1.0) mg/dL AST (15-37) U/L ALT (14-59) U/L Alkaline Phosphatase (46-116) U/L Total Protein (6.4-8.2) g/dl Albumin (3.4-5.0) g/dl Globulin gm/dL Albumin/Globulin Ratio (1-2) Ketones (0.0-0.3) mM 02/06/21 02/06/21 02/06/21 Range/Units 19:01 20:01 21:01 WBC (3.98-10.04) K/mm3 RBC (3.98-5.22) M/mm3 Hgb (11.2-15.7) gm/dl Hct (34.1-44.9) % MCV (79.4-94.8) fl MCH (25.6-32.2) pg MCHC (32.2-35.5) g/dl RDW Std Deviation (36.4-46.3) fL Plt Count (182-369) K/mm3 MPV (9.4-12.3) fl Neut % (Auto) (34.0-71.1) % Lymph % (Auto) (19.3-51.7) % [place] % (Auto) (4.7-12.5) % Eos % (Auto) (0.7-5.8) Baso % (Auto) (0.1-1.2) % Neut # (Auto) (1.56-6.13) K/mm3 Lymph # (Auto) (1.18-3.74) K/mm3 [place] # (Auto) (0.24-0.36) K/mm3 Eos # (Auto) (0.04-0.36) K/mm3 Baso # (Auto) (0.01-0.08) K/mm3 PT (9.7-12.0) SECONDS INR APTT (21.7-31.4) SECONDS Puncture Site ABG pH (7.35-7.45) ABG pCO2 (35.0-45.0) mmHg ABG pO2 (80.0-100.0) mmHg ABG HCO3 (22.0-26.0) meq/L ABG O2 Saturation (96.0-97.0) % ABG Base Excess (-2-2.0) Rashid Test O2 Delivery Device Sodium (136-145) mEq/L Potassium (3.5-5.1) mEq/L Chloride (98-107) mEq/L Carbon Dioxide (21-32) mEq/L Anion Gap (5-15) BUN (7-18) mg/dL Creatinine (0.55-1.02) mg/dL Est Cr Clr Drug Dosing mL/min Estimated GFR (MDRD) (>60) mL/min BUN/Creatinine Ratio (14-18) Glucose (70-99) mg/dL POC Glucose 138 H 149 H 214 H (70-99) mg/dL Calcium (8.5-10.1) mg/dL Phosphorus (2.6-4.7) mg/dL Magnesium (1.8-2.4) mg/dL Total Bilirubin (0.2-1.0) mg/dL AST (15-37) U/L ALT (14-59) U/L Alkaline Phosphatase (46-116) U/L Total Protein (6.4-8.2) g/dl Albumin (3.4-5.0) g/dl Globulin gm/dL Albumin/Globulin Ratio (1-2) Ketones (0.0-0.3) mM 02/06/21 02/06/21 02/06/21 Range/Units 21:25 22:16 23:02 WBC (3.98-10.04) K/mm3 RBC (3.98-5.22) M/mm3 Hgb (11.2-15.7) gm/dl Hct (34.1-44.9) % MCV (79.4-94.8) fl MCH (25.6-32.2) pg MCHC (32.2-35.5) g/dl RDW Std Deviation (36.4-46.3) fL Plt Count (182-369) K/mm3 MPV (9.4-12.3) fl Neut % (Auto) (34.0-71.1) % Lymph % (Auto) (19.3-51.7) % [place] % (Auto) (4.7-12.5) % Eos % (Auto) (0.7-5.8) Baso % (Auto) (0.1-1.2) % Neut # (Auto) (1.56-6.13) K/mm3 Lymph # (Auto) (1.18-3.74) K/mm3 [place] # (Auto) (0.24-0.36) K/mm3 Eos # (Auto) (0.04-0.36) K/mm3 Baso # (Auto) (0.01-0.08) K/mm3 PT (9.7-12.0) SECONDS INR APTT (21.7-31.4) SECONDS Puncture Site ABG pH (7.35-7.45) ABG pCO2 (35.0-45.0) mmHg ABG pO2 (80.0-100.0) mmHg ABG HCO3 (22.0-26.0) meq/L ABG O2 Saturation (96.0-97.0) % ABG Base Excess (-2-2.0) Rashid Test O2 Delivery Device Sodium 138 (136-145) mEq/L Potassium 3.0 L (3.5-5.1) mEq/L Chloride 109 H (98-107) mEq/L Carbon Dioxide 11 L (21-32) mEq/L Anion Gap 21.0 H (5-15) BUN 6 L (7-18) mg/dL Creatinine 0.8 (0.55-1.02) mg/dL Est Cr Clr Drug Dosing 88.32 mL/min Estimated GFR (MDRD) > 60 (>60) mL/min BUN/Creatinine Ratio 7.5 L (14-18) Glucose 229 H (70-99) mg/dL POC Glucose 186 H 217 H (70-99) mg/dL Calcium 7.3 L (8.5-10.1) mg/dL Phosphorus (2.6-4.7) mg/dL Magnesium 2.1 (1.8-2.4) mg/dL Total Bilirubin (0.2-1.0) mg/dL AST (15-37) U/L ALT (14-59) U/L Alkaline Phosphatase (46-116) U/L Total Protein (6.4-8.2) g/dl Albumin (3.4-5.0) g/dl Globulin gm/dL Albumin/Globulin Ratio (1-2) Ketones (0.0-0.3) mM 02/07/21 02/07/21 02/07/21 Range/Units 00:04 00:59 01:06 WBC (3.98-10.04) K/mm3 RBC (3.98-5.22) M/mm3 Hgb (11.2-15.7) gm/dl Hct (34.1-44.9) % MCV (79.4-94.8) fl MCH (25.6-32.2) pg MCHC (32.2-35.5) g/dl RDW Std Deviation (36.4-46.3) fL Plt Count (182-369) K/mm3 MPV (9.4-12.3) fl Neut % (Auto) (34.0-71.1) % Lymph % (Auto) (19.3-51.7) % [place] % (Auto) (4.7-12.5) % Eos % (Auto) (0.7-5.8) Baso % (Auto) (0.1-1.2) % Neut # (Auto) (1.56-6.13) K/mm3 Lymph # (Auto) (1.18-3.74) K/mm3 [place] # (Auto) (0.24-0.36) K/mm3 Eos # (Auto) (0.04-0.36) K/mm3 Baso # (Auto) (0.01-0.08) K/mm3 PT (9.7-12.0) SECONDS INR APTT (21.7-31.4) SECONDS Puncture Site ABG pH (7.35-7.45) ABG pCO2 (35.0-45.0) mmHg ABG pO2 (80.0-100.0) mmHg ABG HCO3 (22.0-26.0) meq/L ABG O2 Saturation (96.0-97.0) % ABG Base Excess (-2-2.0) Rashid Test O2 Delivery Device Sodium 139 (136-145) mEq/L Potassium 3.3 L (3.5-5.1) mEq/L Chloride 111 H (98-107) mEq/L Carbon Dioxide 14 L (21-32) mEq/L Anion Gap 17.3 H (5-15) BUN 7 (7-18) mg/dL Creatinine 0.9 (0.55-1.02) mg/dL Est Cr Clr Drug Dosing 78.51 mL/min Estimated GFR (MDRD) > 60 (>60) mL/min BUN/Creatinine Ratio 7.8 L (14-18) Glucose 240 H (70-99) mg/dL POC Glucose 235 H 218 H (70-99) mg/dL Calcium 7.5 L (8.5-10.1) mg/dL Phosphorus (2.6-4.7) mg/dL Magnesium (1.8-2.4) mg/dL Total Bilirubin (0.2-1.0) mg/dL AST (15-37) U/L ALT (14-59) U/L Alkaline Phosphatase (46-116) U/L Total Protein (6.4-8.2) g/dl Albumin (3.4-5.0) g/dl Globulin gm/dL Albumin/Globulin Ratio (1-2) Ketones (0.0-0.3) mM 02/07/21 02/07/21 02/07/21 Range/Units 01:55 03:00 03:56 WBC (3.98-10.04) K/mm3 RBC (3.98-5.22) M/mm3 Hgb (11.2-15.7) gm/dl Hct (34.1-44.9) % MCV (79.4-94.8) fl MCH (25.6-32.2) pg MCHC (32.2-35.5) g/dl RDW Std Deviation (36.4-46.3) fL Plt Count (182-369) K/mm3 MPV (9.4-12.3) fl Neut % (Auto) (34.0-71.1) % Lymph % (Auto) (19.3-51.7) % [place] % (Auto) (4.7-12.5) % Eos % (Auto) (0.7-5.8) Baso % (Auto) (0.1-1.2) % Neut # (Auto) (1.56-6.13) K/mm3 Lymph # (Auto) (1.18-3.74) K/mm3 [place] # (Auto) (0.24-0.36) K/mm3 Eos # (Auto) (0.04-0.36) K/mm3 Baso # (Auto) (0.01-0.08) K/mm3 PT (9.7-12.0) SECONDS INR APTT (21.7-31.4) SECONDS Puncture Site ABG pH (7.35-7.45) ABG pCO2 (35.0-45.0) mmHg ABG pO2 (80.0-100.0) mmHg ABG HCO3 (22.0-26.0) meq/L ABG O2 Saturation (96.0-97.0) % ABG Base Excess (-2-2.0) Rashid Test O2 Delivery Device Sodium (136-145) mEq/L Potassium (3.5-5.1) mEq/L Chloride (98-107) mEq/L Carbon Dioxide (21-32) mEq/L Anion Gap (5-15) BUN (7-18) mg/dL Creatinine (0.55-1.02) mg/dL Est Cr Clr Drug Dosing mL/min Estimated GFR (MDRD) (>60) mL/min BUN/Creatinine Ratio (14-18) Glucose (70-99) mg/dL POC Glucose 220 H 170 H 140 H (70-99) mg/dL Calcium (8.5-10.1) mg/dL Phosphorus (2.6-4.7) mg/dL Magnesium (1.8-2.4) mg/dL Total Bilirubin (0.2-1.0) mg/dL AST (15-37) U/L ALT (14-59) U/L Alkaline Phosphatase (46-116) U/L Total Protein (6.4-8.2) g/dl Albumin (3.4-5.0) g/dl Globulin gm/dL Albumin/Globulin Ratio (1-2) Ketones (0.0-0.3) mM 02/07/21 02/07/21 02/07/21 Range/Units 04:57 05:50 05:52 WBC 6.56 (3.98-10.04) K/mm3 RBC 4.32 (3.98-5.22) M/mm3 Hgb 11.9 (11.2-15.7) gm/dl Hct 33.4 L (34.1-44.9) % MCV 77.3 L (79.4-94.8) fl MCH 27.5 (25.6-32.2) pg MCHC 35.6 H (32.2-35.5) g/dl RDW Std Deviation 45.9 (36.4-46.3) fL Plt Count 201 (182-369) K/mm3 MPV 10.0 (9.4-12.3) fl Neut % (Auto) 67.5 (34.0-71.1) % Lymph % (Auto) 16.9 L (19.3-51.7) % [place] % (Auto) 14.0 H (4.7-12.5) % Eos % (Auto) 0.9 (0.7-5.8) Baso % (Auto) 0.5 (0.1-1.2) % Neut # (Auto) 4.43 (1.56-6.13) K/mm3 Lymph # (Auto) 1.11 L (1.18-3.74) K/mm3 [place] # (Auto) 0.92 H (0.24-0.36) K/mm3 Eos # (Auto) 0.06 (0.04-0.36) K/mm3 Baso # (Auto) 0.03 (0.01-0.08) K/mm3 PT (9.7-12.0) SECONDS INR APTT (21.7-31.4) SECONDS Puncture Site ABG pH (7.35-7.45) ABG pCO2 (35.0-45.0) mmHg ABG pO2 (80.0-100.0) mmHg ABG HCO3 (22.0-26.0) meq/L ABG O2 Saturation (96.0-97.0) % ABG Base Excess (-2-2.0) Rashid Test O2 Delivery Device Sodium (136-145) mEq/L Potassium (3.5-5.1) mEq/L Chloride (98-107) mEq/L Carbon Dioxide (21-32) mEq/L Anion Gap (5-15) BUN (7-18) mg/dL Creatinine (0.55-1.02) mg/dL Est Cr Clr Drug Dosing mL/min Estimated GFR (MDRD) (>60) mL/min BUN/Creatinine Ratio (14-18) Glucose (70-99) mg/dL POC Glucose 148 H 158 H (70-99) mg/dL Calcium (8.5-10.1) mg/dL Phosphorus (2.6-4.7) mg/dL Magnesium (1.8-2.4) mg/dL Total Bilirubin (0.2-1.0) mg/dL AST (15-37) U/L ALT (14-59) U/L Alkaline Phosphatase (46-116) U/L Total Protein (6.4-8.2) g/dl Albumin (3.4-5.0) g/dl Globulin gm/dL Albumin/Globulin Ratio (1-2) Ketones (0.0-0.3) mM 02/07/21 02/07/21 02/07/21 Range/Units 05:52 05:52 05:56 WBC (3.98-10.04) K/mm3 RBC (3.98-5.22) M/mm3 Hgb (11.2-15.7) gm/dl Hct (34.1-44.9) % MCV (79.4-94.8) fl MCH (25.6-32.2) pg MCHC (32.2-35.5) g/dl RDW Std Deviation (36.4-46.3) fL Plt Count (182-369) K/mm3 MPV (9.4-12.3) fl Neut % (Auto) (34.0-71.1) % Lymph % (Auto) (19.3-51.7) % [place] % (Auto) (4.7-12.5) % Eos % (Auto) (0.7-5.8) Baso % (Auto) (0.1-1.2) % Neut # (Auto) (1.56-6.13) K/mm3 Lymph # (Auto) (1.18-3.74) K/mm3 [place] # (Auto) (0.24-0.36) K/mm3 Eos # (Auto) (0.04-0.36) K/mm3 Baso # (Auto) (0.01-0.08) K/mm3 PT 10.3 (9.7-12.0) SECONDS INR 0.93 APTT 25.3 (21.7-31.4) SECONDS Puncture Site ABG pH (7.35-7.45) ABG pCO2 (35.0-45.0) mmHg ABG pO2 (80.0-100.0) mmHg ABG HCO3 (22.0-26.0) meq/L ABG O2 Saturation (96.0-97.0) % ABG Base Excess (-2-2.0) Rashid Test O2 Delivery Device Sodium 138 (136-145) mEq/L Potassium 3.1 L (3.5-5.1) mEq/L Chloride 109 H (98-107) mEq/L Carbon Dioxide 15 L (21-32) mEq/L Anion Gap 17.1 H (5-15) BUN 4 L (7-18) mg/dL Creatinine 0.7 (0.55-1.02) mg/dL Est Cr Clr Drug Dosing 100.94 mL/min Estimated GFR (MDRD) > 60 (>60) mL/min BUN/Creatinine Ratio 5.7 L (14-18) Glucose 165 H (70-99) mg/dL POC Glucose (70-99) mg/dL Calcium 7.8 L (8.5-10.1) mg/dL Phosphorus 1.0 L (2.6-4.7) mg/dL Magnesium 2.2 (1.8-2.4) mg/dL Total Bilirubin 0.6 (0.2-1.0) mg/dL AST 13 L (15-37) U/L ALT 13 L (14-59) U/L Alkaline Phosphatase 102 (46-116) U/L Total Protein 5.5 L (6.4-8.2) g/dl Albumin 2.7 L (3.4-5.0) g/dl Globulin 2.8 gm/dL Albumin/Globulin Ratio 1.0 (1-2) Ketones 0.82 (0.0-0.3) mM 02/07/21 02/07/21 02/07/21 Range/Units 06:55 08:03 09:05 WBC (3.98-10.04) K/mm3 RBC (3.98-5.22) M/mm3 Hgb (11.2-15.7) gm/dl Hct (34.1-44.9) % MCV (79.4-94.8) fl MCH (25.6-32.2) pg MCHC (32.2-35.5) g/dl RDW Std Deviation (36.4-46.3) fL Plt Count (182-369) K/mm3 MPV (9.4-12.3) fl Neut % (Auto) (34.0-71.1) % Lymph % (Auto) (19.3-51.7) % [place] % (Auto) (4.7-12.5) % Eos % (Auto) (0.7-5.8) Baso % (Auto) (0.1-1.2) % Neut # (Auto) (1.56-6.13) K/mm3 Lymph # (Auto) (1.18-3.74) K/mm3 [place] # (Auto) (0.24-0.36) K/mm3 Eos # (Auto) (0.04-0.36) K/mm3 Baso # (Auto) (0.01-0.08) K/mm3 PT (9.7-12.0) SECONDS INR APTT (21.7-31.4) SECONDS Puncture Site ABG pH (7.35-7.45) ABG pCO2 (35.0-45.0) mmHg ABG pO2 (80.0-100.0) mmHg ABG HCO3 (22.0-26.0) meq/L ABG O2 Saturation (96.0-97.0) % ABG Base Excess (-2-2.0) Rashid Test O2 Delivery Device Sodium (136-145) mEq/L Potassium (3.5-5.1) mEq/L Chloride (98-107) mEq/L Carbon Dioxide (21-32) mEq/L Anion Gap (5-15) BUN (7-18) mg/dL Creatinine (0.55-1.02) mg/dL Est Cr Clr Drug Dosing mL/min Estimated GFR (MDRD) (>60) mL/min BUN/Creatinine Ratio (14-18) Glucose (70-99) mg/dL POC Glucose 163 H 179 H 154 H (70-99) mg/dL Calcium (8.5-10.1) mg/dL Phosphorus (2.6-4.7) mg/dL Magnesium (1.8-2.4) mg/dL Total Bilirubin (0.2-1.0) mg/dL AST (15-37) U/L ALT (14-59) U/L Alkaline Phosphatase (46-116) U/L Total Protein (6.4-8.2) g/dl Albumin (3.4-5.0) g/dl Globulin gm/dL Albumin/Globulin Ratio (1-2) Ketones (0.0-0.3) mM 02/07/21 02/07/21 02/07/21 Range/Units 09:30 10:14 10:19 WBC (3.98-10.04) K/mm3 RBC (3.98-5.22) M/mm3 Hgb (11.2-15.7) gm/dl Hct (34.1-44.9) % MCV (79.4-94.8) fl MCH (25.6-32.2) pg MCHC (32.2-35.5) g/dl RDW Std Deviation (36.4-46.3) fL Plt Count (182-369) K/mm3 MPV (9.4-12.3) fl Neut % (Auto) (34.0-71.1) % Lymph % (Auto) (19.3-51.7) % [place] % (Auto) (4.7-12.5) % Eos % (Auto) (0.7-5.8) Baso % (Auto) (0.1-1.2) % Neut # (Auto) (1.56-6.13) K/mm3 Lymph # (Auto) (1.18-3.74) K/mm3 [place] # (Auto) (0.24-0.36) K/mm3 Eos # (Auto) (0.04-0.36) K/mm3 Baso # (Auto) (0.01-0.08) K/mm3 PT (9.7-12.0) SECONDS INR APTT (21.7-31.4) SECONDS Puncture Site Line ABG pH 7.37 (7.35-7.45) ABG pCO2 23.6 L (35.0-45.0) mmHg ABG pO2 34.0 L* (80.0-100.0) mmHg ABG HCO3 13.2 L (22.0-26.0) meq/L ABG O2 Saturation 82.8 L (96.0-97.0) % ABG Base Excess -10.3 L (-2-2.0) Rashid Test Positive O2 Delivery Device Room air Sodium 139 (136-145) mEq/L Potassium 3.4 L (3.5-5.1) mEq/L Chloride 109 H (98-107) mEq/L Carbon Dioxide 15 L (21-32) mEq/L Anion Gap 18.4 H (5-15) BUN 4 L (7-18) mg/dL Creatinine 0.7 (0.55-1.02) mg/dL Est Cr Clr Drug Dosing 100.94 mL/min Estimated GFR (MDRD) > 60 (>60) mL/min BUN/Creatinine Ratio 5.7 L (14-18) Glucose 152 H (70-99) mg/dL POC Glucose 152 H (70-99) mg/dL Calcium 7.7 L (8.5-10.1) mg/dL Phosphorus (2.6-4.7) mg/dL Magnesium (1.8-2.4) mg/dL Total Bilirubin (0.2-1.0) mg/dL AST (15-37) U/L ALT (14-59) U/L Alkaline Phosphatase (46-116) U/L Total Protein (6.4-8.2) g/dl Albumin (3.4-5.0) g/dl Globulin gm/dL Albumin/Globulin Ratio (1-2) Ketones (0.0-0.3) mM 02/07/21 02/07/21 02/07/21 Range/Units 11:10 12:03 13:14 WBC (3.98-10.04) K/mm3 RBC (3.98-5.22) M/mm3 Hgb (11.2-15.7) gm/dl Hct (34.1-44.9) % MCV (79.4-94.8) fl MCH (25.6-32.2) pg MCHC (32.2-35.5) g/dl RDW Std Deviation (36.4-46.3) fL Plt Count (182-369) K/mm3 MPV (9.4-12.3) fl Neut % (Auto) (34.0-71.1) % Lymph % (Auto) (19.3-51.7) % [place] % (Auto) (4.7-12.5) % Eos % (Auto) (0.7-5.8) Baso % (Auto) (0.1-1.2) % Neut # (Auto) (1.56-6.13) K/mm3 Lymph # (Auto) (1.18-3.74) K/mm3 [place] # (Auto) (0.24-0.36) K/mm3 Eos # (Auto) (0.04-0.36) K/mm3 Baso # (Auto) (0.01-0.08) K/mm3 PT (9.7-12.0) SECONDS INR APTT (21.7-31.4) SECONDS Puncture Site ABG pH (7.35-7.45) ABG pCO2 (35.0-45.0) mmHg ABG pO2 (80.0-100.0) mmHg ABG HCO3 (22.0-26.0) meq/L ABG O2 Saturation (96.0-97.0) % ABG Base Excess (-2-2.0) Rashid Test O2 Delivery Device Sodium (136-145) mEq/L Potassium (3.5-5.1) mEq/L Chloride (98-107) mEq/L Carbon Dioxide (21-32) mEq/L Anion Gap (5-15) BUN (7-18) mg/dL Creatinine (0.55-1.02) mg/dL Est Cr Clr Drug Dosing mL/min Estimated GFR (MDRD) (>60) mL/min BUN/Creatinine Ratio (14-18) Glucose (70-99) mg/dL POC Glucose 154 H 166 H 135 H (70-99) mg/dL Calcium (8.5-10.1) mg/dL Phosphorus (2.6-4.7) mg/dL Magnesium (1.8-2.4) mg/dL Total Bilirubin (0.2-1.0) mg/dL AST (15-37) U/L ALT (14-59) U/L Alkaline Phosphatase (46-116) U/L Total Protein (6.4-8.2) g/dl Albumin (3.4-5.0) g/dl Globulin gm/dL Albumin/Globulin Ratio (1-2) Ketones (0.0-0.3) mM // Range/Units 13:54 WBC (3.98-10.04) K/mm3 RBC (3.98-5.22) M/mm3 Hgb (11.2-15.7) gm/dl Hct (34.1-44.9) % MCV (79.4-94.8) fl MCH (25.6-32.2) pg MCHC (32.2-35.5) g/dl RDW Std Deviation (36.4-46.3) fL Plt Count (182-369) K/mm3 MPV (9.4-12.3) fl Neut % (Auto) (34.0-71.1) % Lymph % (Auto) (19.3-51.7) % [place] % (Auto) (4.7-12.5) % Eos % (Auto) (0.7-5.8) Baso % (Auto) (0.1-1.2) % Neut # (Auto) (1.56-6.13) K/mm3 Lymph # (Auto) (1.18-3.74) K/mm3 [place] # (Auto) (0.24-0.36) K/mm3 Eos # (Auto) (0.04-0.36) K/mm3 Baso # (Auto) (0.01-0.08) K/mm3 PT (9.7-12.0) SECONDS INR APTT (21.7-31.4) SECONDS Puncture Site ABG pH (7.35-7.45) ABG pCO2 (35.0-45.0) mmHg ABG pO2 (80.0-100.0) mmHg ABG HCO3 (22.0-26.0) meq/L ABG O2 Saturation (96.0-97.0) % ABG Base Excess (-2-2.0) Rashid Test O2 Delivery Device Sodium (136-145) mEq/L Potassium (3.5-5.1) mEq/L Chloride (98-107) mEq/L Carbon Dioxide (21-32) mEq/L Anion Gap (5-15) BUN (7-18) mg/dL Creatinine (0.55-1.02) mg/dL Est Cr Clr Drug Dosing mL/min Estimated GFR (MDRD) (>60) mL/min BUN/Creatinine Ratio (14-18) Glucose (70-99) mg/dL POC Glucose 165 H (70-99) mg/dL Calcium (8.5-10.1) mg/dL Phosphorus (2.6-4.7) mg/dL Magnesium (1.8-2.4) mg/dL Total Bilirubin (0.2-1.0) mg/dL AST (15-37) U/L ALT (14-59) U/L Alkaline Phosphatase (46-116) U/L Total Protein (6.4-8.2) g/dl Albumin (3.4-5.0) g/dl Globulin gm/dL Albumin/Globulin Ratio (1-2) Ketones (0.0-0.3) mM Result Diagrams: 02/07/21 05:52 02/07/21 10:14 Sepsis Event Note - Evaluation Sepsis Screening Result: No Definite Risk - Focused Exam Vital Signs: Vital Signs Temp Pulse Resp BP BP Pulse Ox 02/07/21 14:00 21 H 98 02/07/21 13:00 24 H 100 02/07/21 12:01 24 H 107/66 100 02/07/21 12:00 36.7 C 96 19 100 02/07/21 11:00 25 H 100 02/07/21 10:01 23 H 106/67 100 02/07/21 10:00 100 26 H 100 02/07/21 09:00 18 02/07/21 08:01 19 101/65 98 02/07/21 08:00 36.7 C 98 20 98 02/07/21 07:00 21 H 99 02/07/21 06:01 21 H 100 02/07/21 06:00 94 21 H 111/68 111/68 100 02/07/21 05:59 21 H 100 02/07/21 05:00 21 H 99 02/07/21 04:01 19 100 02/07/21 04:00 36.6 C 98 19 113/76 113/76 100 02/07/21 03:59 19 100 02/07/21 03:01 19 98 02/07/21 03:00 100 21 H 114/67 114/67 98 02/07/21 02:59 21 H 98 - Problem List Review Problem List Initiated/Reviewed/Updated: Yes - My Orders Last 24 Hours: My Active Orders 02/07/21 08:28 Renew/Continue Urinary Catheter [OM.PC] Routine 02/07/21 08:33 Renew/Continue Central Line Access [OM.PC] Routine 02/07/21 10:02 Consult to Diabetic Nurse Specialist [CONS] Routine 02/07/21 12:30 Sodium Chloride 23.4% [Sodium Chloride 23.4% INJ] 154 meq Potassium Chloride 40 meq Dextrose 10% in Water 1,000 ml IV Q8H 02/07/21 13:54 BASIC METABOLIC PANEL,BMP [CHEM] Routine MAGNESIUM [CHEM] Routine PHOSPHORUS [CHEM] Routine 02/07/21 21:00 Amoxicillin/Clavulanate K [Augmentin 875 MG/125 MG] 1 tab PO Q12HR - Plan Plan:: 35-year-old female with new onset diabetes presents in diabetic ketoacidosis with a pH less than 7 Diabetic ketoacidosis Metabolic acidosis with partially compensated respiratory alkalosis, improved New onset DM, A1c 12.7 Electrolytes imbalance - hypokalemia, hypophosphoremia External otitis Elevation of TSH, 6.572 with normal fT4. * Approximately 2-day history of shortness of breath with 7-day history of feeling ill * History of gestational diabetes * Family history of type I diabetic in 2 first-degree relatives * Initial serum blood sugar 426 with ketones of 11.22, bicarb of 5 * Initial anion gap of 32.9 * Initial venous blood glucose of 6.92 * Received 3 L of normal saline in the emergency department * Her pH is 7.37, HCO3 15, AG 18.4 Plan * Continue to monitor her in ICU * D10 NS 40 mEq/L of KCl 125 mL/h * Continue Insulin drip titrated to keep blood sugars between 150 and 200 * Fingerstick blood sugars every hour until on subcu insulin * Follow BMP, mag, and venous pH every 4 hours * Follow potassium closely and replenish as necessary. * replaced phos. No diet until phos increase enough * Follow DKA protocol * Repeat TSH and free T4 will likely need to be done as an outpatient. * Nutrition and music educator counseling * N.p.o. until anion gap closes, phos high enough and ketones are normal. * CODE STATUS: Full code * VTE prophylaxis with Lovenox
[2021-02-07] MEDS ORDERED: Sodium Chloride 0.9% 250 ML ONE (20:15)
[2021-02-07] MEDS: Amoxicillin/Clavulanate K 875-125 MG Tab PO SCH (20:38)
[2021-02-07] MEDS ORDERED: Potassium Chloride 10 MEQ in Premix Bag 1 BAG IV PRN (22:21)
[2021-02-07] MEDS: Acetaminophen 325 MG Tab PO PRN (23:58)
[2021-02-08] MEDS: Potassium Chloride 10 MEQ in Premix Bag 1 BAG IV SCH (00:23)
[2021-02-08] MEDS ORDERED: Potassium Chloride 10 MEQ in Premix Bag 1 BAG IV SCH (00:30)
[2021-02-08] MEDS: Potassium Chloride 10 MEQ in Premix Bag 1 BAG IV PRN ×2 (02:29→04:00)
[2021-02-08] MEDS: Ondansetron 4 MG/2 ML SDV IV PRN (05:18)
[2021-02-08] MEDS: POTASSIUM CHLORIDE IV SCH ×3 (06:08)
[2021-02-08] MEDS: SODIUM CHLORIDE IV SCH ×3 (06:08)
[2021-02-08] MEDS: DEXTROSE 10% IV SCH ×3 (06:08)
[2021-02-08] MEDS: [UNRECOGNIZED DRUG - OTHER] IV SCH ×3 (06:08)
[2021-02-08] MEDS: Amoxicillin/Clavulanate K 875-125 MG Tab PO SCH ×2 (09:35→20:41)
[2021-02-08] MEDS: Enoxaparin 40 MG/0.4 ML Syringe SUBCUT SCH (09:35)
[2021-02-08] MEDS: Insulin Glargine,Hum.Rec.Anlog 100 UNIT/ML 3 ML Pen SUBCUT SCH (09:40)
[2021-02-08] MEDS ORDERED: Potassium Phosphates 30 MMOLE in Sodium Chloride 0.9% 500 ML IV SCH (10:00)
[2021-02-08] MEDS ORDERED: Sodium Chloride 0.9% 1,000 ML ONE (10:26)
[2021-02-08] MEDS: Insulin Lispro 100 Unit/ML 3 ML KwikPen SUBCUT SCH ×4 (11:24→21:56)
[2021-02-08] MEDS ORDERED: Sodium Chloride 0.9% 1,000 ML IV SCH (11:30)
--- NOTE | 2021-02-08 12:45 | PCM.PN ---
- General Info Date of Service: 02/08/21 Admission Dx/Problem (Free Text): Admission Diagnosis/Problem Admission Diagnosis/Problem Diabetic ketoacidosis Subjective Update: Pt feels much better today. She is hungry. She otherwise denies nausea, vomiting, diarrhea, fever, chills, headache, or dizziness. Central line was removed by Dr. López yesterday Vital signs are stable and acceptable Anion gap 16.7, bicarbonate 18 phos 1.6 Mag 1.9 - Review of Systems Systems Review Comment:: Positive for weakness. All other systems were reviewed and are negative. - Patient Data Vitals - Most Recent: Last Vital Signs Temp 36.8 C 02/08/21 08:00 Pulse 89 02/08/21 08:00 Resp 21 H 02/08/21 11:00 BP 106/63 02/08/21 10:00 Pulse Ox 99 02/08/21 11:00 Weight - Most Recent: 77.564 kg I&O - Last 24 Hours: Intake & Output 02/07/21 02/08/21 02/08/21 22:59 06:59 14:59 Intake Total 2470 3084 Output Total 1250 Balance 1220 3084 Lab Results Last 24 Hours: Laboratory Results - last 24 hr 02/07/21 02/07/21 02/07/21 Range/Units 13:14 13:54 13:54 Sodium 138 (136-145) mEq/L Potassium 3.1 L (3.5-5.1) mEq/L Chloride 109 H (98-107) mEq/L Carbon Dioxide 15 L (21-32) mEq/L Anion Gap 17.1 H (5-15) BUN 3 L (7-18) mg/dL Creatinine 0.6 (0.55-1.02) mg/dL Est Cr Clr Drug Dosing 117.76 mL/min Estimated GFR (MDRD) > 60 (>60) mL/min BUN/Creatinine Ratio 5.0 L (14-18) Glucose 175 H (70-99) mg/dL POC Glucose 135 H 165 H (70-99) mg/dL Calcium 7.5 L (8.5-10.1) mg/dL Phosphorus 1.9 L (2.6-4.7) mg/dL Magnesium 1.9 (1.8-2.4) mg/dL 02/07/21 02/07/2121 Range/Units 15:02 16:06 17:12 Sodium (136-145) mEq/L Potassium (3.5-5.1) mEq/L Chloride (98-107) mEq/L Carbon Dioxide (21-32) mEq/L Anion Gap (5-15) BUN (7-18) mg/dL Creatinine (0.55-1.02) mg/dL Est Cr Clr Drug Dosing mL/min Estimated GFR (MDRD) (>60) mL/min BUN/Creatinine Ratio (14-18) Glucose (70-99) mg/dL POC Glucose 194 H 189 H 166 H (70-99) mg/dL Calcium (8.5-10.1) mg/dL Phosphorus (2.6-4.7) mg/dL Magnesium (1.8-2.4) mg/dL 02/07/21 02/07/21 02/07/21 Range/Units 18:03 19:06 19:58 Sodium (136-145) mEq/L Potassium (3.5-5.1) mEq/L Chloride (98-107) mEq/L Carbon Dioxide (21-32) mEq/L Anion Gap (5-15) BUN (7-18) mg/dL Creatinine (0.55-1.02) mg/dL Est Cr Clr Drug Dosing mL/min Estimated GFR (MDRD) (>60) mL/min BUN/Creatinine Ratio (14-18) Glucose (70-99) mg/dL POC Glucose 164 H 197 H 166 H (70-99) mg/dL Calcium (8.5-10.1) mg/dL Phosphorus (2.6-4.7) mg/dL Magnesium (1.8-2.4) mg/dL 02/07/21 02/07/21 02/07/21 Range/Units 21:03 21:25 21:52 Sodium 140 (136-145) mEq/L Potassium 3.1 L (3.5-5.1) mEq/L Chloride 109 H (98-107) mEq/L Carbon Dioxide 19 L (21-32) mEq/L Anion Gap 15.1 H (5-15) BUN 3 L (7-18) mg/dL Creatinine 0.7 (0.55-1.02) mg/dL Est Cr Clr Drug Dosing 100.94 mL/min Estimated GFR (MDRD) > 60 (>60) mL/min BUN/Creatinine Ratio 4.3 L (14-18) Glucose 150 H (70-99) mg/dL POC Glucose 143 H 124 H (70-99) mg/dL Calcium 7.9 L (8.5-10.1) mg/dL Phosphorus (2.6-4.7) mg/dL Magnesium (1.8-2.4) mg/dL 02/07/21 02/07/21 02/08/21 Range/Units 23:02 23:55 01:04 Sodium (136-145) mEq/L Potassium (3.5-5.1) mEq/L Chloride (98-107) mEq/L Carbon Dioxide (21-32) mEq/L Anion Gap (5-15) BUN (7-18) mg/dL Creatinine (0.55-1.02) mg/dL Est Cr Clr Drug Dosing mL/min Estimated GFR (MDRD) (>60) mL/min BUN/Creatinine Ratio (14-18) Glucose (70-99) mg/dL POC Glucose 188 H 218 H 234 H (70-99) mg/dL Calcium (8.5-10.1) mg/dL Phosphorus (2.6-4.7) mg/dL Magnesium (1.8-2.4) mg/dL 02/08/21 02/08/21 02/08/21 Range/Units 01:15 01:57 02:59 Sodium 137 (136-145) mEq/L Potassium 3.2 L (3.5-5.1) mEq/L Chloride 107 (98-107) mEq/L Carbon Dioxide 17 L (21-32) mEq/L Anion Gap 16.2 H (5-15) BUN 3 L (7-18) mg/dL Creatinine 0.8 (0.55-1.02) mg/dL Est Cr Clr Drug Dosing 88.32 mL/min Estimated GFR (MDRD) > 60 (>60) mL/min BUN/Creatinine Ratio 3.8 L (14-18) Glucose 236 H (70-99) mg/dL POC Glucose 192 H 184 H (70-99) mg/dL Calcium 7.6 L (8.5-10.1) mg/dL Phosphorus (2.6-4.7) mg/dL Magnesium (1.8-2.4) mg/dL 02/08/21 02/08/21 02/08/21 Range/Units 04:04 04:55 05:13 Sodium 139 (136-145) mEq/L Potassium 3.7 (3.5-5.1) mEq/L Chloride 108 H (98-107) mEq/L Carbon Dioxide 18 L (21-32) mEq/L Anion Gap 16.7 H (5-15) BUN 2 L (7-18) mg/dL Creatinine 0.7 (0.55-1.02) mg/dL Est Cr Clr Drug Dosing 100.94 mL/min Estimated GFR (MDRD) > 60 (>60) mL/min BUN/Creatinine Ratio 2.9 L (14-18) Glucose 210 H (70-99) mg/dL POC Glucose 175 H 228 H (70-99) mg/dL Calcium 8.1 L (8.5-10.1) mg/dL Phosphorus 1.6 L (2.6-4.7) mg/dL Magnesium 1.9 (1.8-2.4) mg/dL 02/08/21 02/08/21 02/08/21 Range/Units 06:04 06:51 08:15 Sodium (136-145) mEq/L Potassium (3.5-5.1) mEq/L Chloride (98-107) mEq/L Carbon Dioxide (21-32) mEq/L Anion Gap (5-15) BUN (7-18) mg/dL Creatinine (0.55-1.02) mg/dL Est Cr Clr Drug Dosing mL/min Estimated GFR (MDRD) (>60) mL/min BUN/Creatinine Ratio (14-18) Glucose (70-99) mg/dL POC Glucose 225 H 192 H 153 H (70-99) mg/dL Calcium (8.5-10.1) mg/dL Phosphorus (2.6-4.7) mg/dL Magnesium (1.8-2.4) mg/dL 02/08/21 02/08/21 02/08/21 Range/Units 09:01 10:21 11:21 Sodium (136-145) mEq/L Potassium (3.5-5.1) mEq/L Chloride (98-107) mEq/L Carbon Dioxide (21-32) mEq/L Anion Gap (5-15) BUN (7-18) mg/dL Creatinine (0.55-1.02) mg/dL Est Cr Clr Drug Dosing mL/min Estimated GFR (MDRD) (>60) mL/min BUN/Creatinine Ratio (14-18) Glucose (70-99) mg/dL POC Glucose 128 H 108 H 167 H (70-99) mg/dL Calcium (8.5-10.1) mg/dL Phosphorus (2.6-4.7) mg/dL Magnesium (1.8-2.4) mg/dL Med Orders - Current: Current Medications Acetaminophen (Acetaminophen 325 Mg Tab) 650 mg PO Q4H PRN PRN Reason: Pain/Fever Last Admin: 02/07/21 23:58 Dose: 650 mg Documented by: Amoxicillin/Clavulanate Potassium (Amoxicillin/Clavulanate K 875-125 Mg Tab) 1 tab PO Q12HR [facility] Stop: 02/12/21 23:59 Last Admin: 02/08/21 09:35 Dose: 1 tab Documented by: Enoxaparin Sodium (Enoxaparin 40 Mg/0.4 Ml Syringe) 40 mg SUBCUT DAILY [facility] Last Admin: 02/08/21 09:35 Dose: 40 mg Documented by: Insulin Human Regular 100 unit (/ Sodium Chloride) 100 mls @ 7.657 mls/hr IV TITRATE [facility]; Protocol Last Titration: 02/08/21 09:10 Dose: 0.03 units/kg/hr, 2 mls/hr Documented by: Potassium Phosphate 30 mmole/ (Sodium Chloride) 510 mls @ 102 mls/hr IV ASDIRECTED [facility] Stop: 02/08/21 14:59 Last Admin: 02/08/21 10:09 Dose: 102 mls/hr Documented by: Sodium Chloride (Normal Saline) 1,000 mls @ 100 mls/hr IV ASDIRECTED [facility] Insulin Glargine (Insulin Glargine,Hum.Rec.Anlog 100 Unit/Ml 3 Ml Pen) 6 unit SUBCUT DAILY [facility] Last Admin: 02/08/21 09:40 Dose: 6 units Documented by: Insulin Human Lispro (Insulin Lispro 100 Unit/Ml 3 Ml Kwikpen) 0 unit SUBCUT WITHMEALSANDBED [facility]; Protocol Last Admin: 02/08/21 11:24 Dose: 2 units Documented by: Ondansetron HCl (Ondansetron 4 Mg/2 Ml Sdv) 4 mg IV Q4H PRN PRN Reason: Nausea/Vomiting Last Admin: 02/08/21 05:18 Dose: 4 mg Documented by: Sodium Chloride (Sodium Chloride 0.9% 10 Ml Syringe) 10 ml FLUSH ASDIRECTED PRN PRN Reason: Keep Vein Open Last Admin: 02/05/21 08:37 Dose: 10 ml Documented by: Discontinued Medications Enoxaparin Sodium (Enoxaparin 40 Mg/0.4 Ml Syringe) 40 mg SUBCUT DAILY [facility] Last Admin: 02/06/21 09:18 Dose: 40 mg Documented by: Sodium Chloride (Normal Saline) 2,000 mls @ 1,000 mls/hr IV .BOLUS [facility] Last Admin: 02/05/21 08:37 Dose: 1,000 mls/hr Documented by: Lactated Ringer's (Ringers, Lactated) 1,000 mls @ 1,000 mls/hr IV .BOLUS ONE Stop: 02/05/21 11:48 Last Admin: 02/05/21 10:58 Dose: 1,000 mls/hr Documented by: Lactated Ringer's (Ringers, Lactated) 1,000 mls @ 1,000 mls/hr IV .BOLUS ONE Stop: 02/05/21 13:14 Last Admin: 02/05/21 12:20 Dose: 1,000 mls/hr Documented by: Potassium Chloride/Sodium Chloride (1/2 Ns With 20 Meq Kcl) 1,000 mls @ 500 mls/hr IV ASDIRECTED [facility] Last Admin: 02/05/21 14:01 Dose: 500 mls/hr Documented by: Sodium Bicarbonate 100 meq/Potassium Chloride 20 meq/Sterile Water 510 mls @ 255 mls/hr IV ONETIME ONE Stop: 02/05/21 15:59 Last Admin: 02/05/21 15:17 Dose: 255 mls/hr Documented by: Potassium Chloride 10 meq/ (Premix) 100 mls @ 100 mls/hr IV Q1H [facility] Stop: 02/05/21 18:59 Last Admin: 02/05/21 21:11 Dose: 100 mls/hr Documented by: Potassium Chloride/Dextrose/Sod Cl (D5 1/2 Ns W/ 20 Meq/L Kcl) 1,000 mls @ 200 mls/hr IV ASDIRECTED [facility] Last Admin: 02/05/21 22:20 Dose: 200 mls/hr Documented by: Potassium Chloride 10 meq/ (Premix) 100 mls @ 100 mls/hr IV Q1H [facility] Stop: 02/05/21 22:59 Last Admin: 02/05/21 22:09 Dose: 100 mls/hr Documented by: Potassium Chloride 10 meq/ (Premix) 100 mls @ 100 mls/hr IV Q1H [facility] Stop: 02/06/21 01:59 Last Admin: 02/06/21 01:16 Dose: 100 mls/hr Documented by: Magnesium Sulfate 4 gm/ Premix 50 mls @ 12.5 mls/hr IV ONETIME ONE Stop: 02/06/21 05:29 Magnesium Sulfate 4 gm/ Premix 50 mls @ 12.5 mls/hr IV ONETIME ONE Stop: 02/06/21 06:59 Last Admin: 02/06/21 02:42 Dose: 12.5 mls/hr Documented by: Sodium Chloride (Normal Saline) Confirm Administered Dose 100 mls @ as directed .ROUTE .STK-MED ONE Stop: 02/06/21 01:21 Last Admin: 02/06/21 02:50 Dose: Not Given Documented by: Potassium Chloride/Dextrose/Sod Cl (D5 1/2 Ns W/ 20 Meq/L Kcl) 1,000 mls @ 150 mls/hr IV ASDIRECTED [facility] Last Infusion: 02/06/21 11:25 Dose: 150 mls/hr Documented by: Potassium Chloride 10 meq/ (Premix) 100 mls @ 100 mls/hr IV Q1H [facility] Stop: 02/06/21 08:44 Last Admin: 02/06/21 02:38 Dose: 100 mls/hr Documented by: Potassium Chloride 10 meq/ (Premix) 100 mls @ 200 mls/hr IV ASDIRECTED [facility] Stop: 02/06/21 06:30 Last Admin: 02/06/21 05:48 Dose: 200 mls/hr Documented by: Potassium Chloride 10 meq/ (Premix) 100 mls @ 100 mls/hr IV Q1H [facility] Stop: 02/06/21 12:59 Last Admin: 02/06/21 12:14 Dose: 100 mls/hr Documented by: Potassium Phosphate 30 mmole/ (Sodium Chloride) 510 mls @ 102 mls/hr IV ONETIME ONE Stop: 02/06/21 18:29 Last Admin: 02/06/21 13:51 Dose: 102 mls/hr Documented by: Potassium Chloride 10 meq/ (Premix) 100 mls @ 100 mls/hr IV Q1H [facility] Stop: 02/06/21 19:29 Last Admin: 02/06/21 19:34 Dose: 100 mls/hr Documented by: Potassium Chloride/Dextrose/Sod Cl (D5 1/2 Ns W/ 40 Meq/L Kcl) 1,000 mls @ 150 mls/hr IV ASDIRECTED [facility] Stop: 02/07/21 13:00 Last Admin: 02/07/21 06:07 Dose: 150 mls/hr Documented by: Potassium Chloride 10 meq/ (Premix) 100 mls @ 100 mls/hr IV Q1H [facility] Stop: 02/07/21 02:29 Last Admin: 02/07/21 01:45 Dose: 100 mls/hr Documented by: Potassium Chloride 10 meq/ (Premix) 100 mls @ 100 mls/hr IV Q1H [facility] Stop: 02/07/21 06:59 Last Admin: 02/07/21 06:03 Dose: 100 mls/hr Documented by: Potassium Chloride 10 meq/ (Premix) 100 mls @ 100 mls/hr IV Q1H [facility] Stop: 02/07/21 10:59 Last Admin: 02/07/21 11:00 Dose: 100 mls/hr Documented by: Potassium Phosphate 30 mmole/ (Sodium Chloride) 510 mls @ 102 mls/hr IV ONETIME ONE Stop: 02/07/21 12:59 Last Admin: 02/07/21 08:08 Dose: 102 mls/hr Documented by: Sodium Chloride 154 meq/Potassium Chloride 40 meq/Dextrose/Water 1,058.5 mls @ 125 mls/hr IV Q8H [facility] Stop: 02/08/21 11:30 Last Admin: 02/08/21 06:08 Dose: 125 mls/hr Documented by: Potassium Chloride 10 meq/ (Premix) 100 mls @ 100 mls/hr IV Q1H [facility] Stop: 02/07/21 22:29 Last Admin: 02/08/21 00:23 Dose: Not Given Documented by: Sodium Chloride (Normal Saline Advbag) Confirm Administered Dose 250 mls @ as directed .ROUTE .STK-MED ONE Stop: 02/07/21 20:16 Last Admin: 02/07/21 20:39 Dose: Not Given Documented by: Potassium Chloride 10 meq/ (Premix) 100 mls @ 100 mls/hr IV Q1H PRN PRN Reason: Hypokalemia Stop: 02/08/21 00:29 Potassium Chloride 10 meq/ (Premix) 100 mls @ 100 mls/hr IV Q1H [facility] Stop: 02/08/21 01:29 Last Admin: 02/08/21 00:40 Dose: 100 mls/hr Documented by: Potassium Chloride 10 meq/ (Premix) 100 mls @ 100 mls/hr IV Q1H PRN PRN Reason: Hypokalemia Stop: 02/08/21 04:30 Last Admin: 02/08/21 04:00 Dose: 100 mls/hr Documented by: Sodium Chloride (Normal Saline) Confirm Administered Dose 1,000 mls @ as directed .ROUTE .STK-MED ONE Stop: 02/08/21 10:27 Last Admin: 02/08/21 10:49 Dose: 25 mls/hr Documented by: Insulin Human Regular (Insulin Regular, Human 100 Units/Ml 3 Ml Vial) 7 unit IV ONETIME ONE Stop: 02/05/21 13:31 Last Admin: 02/05/21 13:57 Dose: 7 unit Documented by: - Exam Central Line Total Time: 1Days 21Hours Urinary Catheter Total Time: 2Days 1Hours Physical Findings Comments:: Physical Exam: General: No acute distress HEENT: Conjunctiva Clear, EOMI, Mucosa Moist & [place]. Left ear external canal erythema but no discharge. Neck: Supple, Trachea Midline, NO JVD Lungs: CTA, normal Respiratory Effort, no Wheezing Cardiovascular: Regular Rate, Regular Rhythm GI/Abdominal Exam: Normal Bowel Sounds, Soft, Non-Tender, No Organomegaly, No Distention, No Abnormal Bruit, No Mass Extremities: Normal Inspection, Non-Tender, No Pedal Edema, Normal Capillary Refill Skin: Warm, Dry, Intact Neurology: A+O x 3, no focal neurological deficits Psychiatric: Normal Mood - Patient Data Lab Results Last 24 hrs: Laboratory Results - last 24 hr 02/07/21 02/07/21 02/07/21 Range/Units 13:14 13:54 13:54 Sodium 138 (136-145) mEq/L Potassium 3.1 L (3.5-5.1) mEq/L Chloride 109 H (98-107) mEq/L Carbon Dioxide 15 L (21-32) mEq/L Anion Gap 17.1 H (5-15) BUN 3 L (7-18) mg/dL Creatinine 0.6 (0.55-1.02) mg/dL Est Cr Clr Drug Dosing 117.76 mL/min Estimated GFR (MDRD) > 60 (>60) mL/min BUN/Creatinine Ratio 5.0 L (14-18) Glucose 175 H (70-99) mg/dL POC Glucose 135 H 165 H (70-99) mg/dL Calcium 7.5 L (8.5-10.1) mg/dL Phosphorus 1.9 L (2.6-4.7) mg/dL Magnesium 1.9 (1.8-2.4) mg/dL 02/07/21 02/07/21 02/07/21 Range/Units 15:02 16:06 17:12 Sodium (136-145) mEq/L Potassium (3.5-5.1) mEq/L Chloride (98-107) mEq/L Carbon Dioxide (21-32) mEq/L Anion Gap (5-15) BUN (7-18) mg/dL Creatinine (0.55-1.02) mg/dL Est Cr Clr Drug Dosing mL/min Estimated GFR (MDRD) (>60) mL/min BUN/Creatinine Ratio (14-18) Glucose (70-99) mg/dL POC Glucose 194 H 189 H 166 H (70-99) mg/dL Calcium (8.5-10.1) mg/dL Phosphorus (2.6-4.7) mg/dL Magnesium (1.8-2.4) mg/dL 02/07/21 02/07/21 02/07/21 Range/Units 18:03 19:06 19:58 Sodium (136-145) mEq/L Potassium (3.5-5.1) mEq/L Chloride (98-107) mEq/L Carbon Dioxide (21-32) mEq/L Anion Gap (5-15) BUN (7-18) mg/dL Creatinine (0.55-1.02) mg/dL Est Cr Clr Drug Dosing mL/min Estimated GFR (MDRD) (>60) mL/min BUN/Creatinine Ratio (14-18) Glucose (70-99) mg/dL POC Glucose 164 H 197 H 166 H (70-99) mg/dL Calcium (8.5-10.1) mg/dL Phosphorus (2.6-4.7) mg/dL Magnesium (1.8-2.4) mg/dL 02/07/21 02/07/21 02/07/21 Range/Units 21:03 21:25 21:52 Sodium 140 (136-145) mEq/L Potassium 3.1 L (3.5-5.1) mEq/L Chloride 109 H (98-107) mEq/L Carbon Dioxide 19 L (21-32) mEq/L Anion Gap 15.1 H (5-15) BUN 3 L (7-18) mg/dL Creatinine 0.7 (0.55-1.02) mg/dL Est Cr Clr Drug Dosing 100.94 mL/min Estimated GFR (MDRD) > 60 (>60) mL/min BUN/Creatinine Ratio 4.3 L (14-18) Glucose 150 H (70-99) mg/dL POC Glucose 143 H 124 H (70-99) mg/dL Calcium 7.9 L (8.5-10.1) mg/dL Phosphorus (2.6-4.7) mg/dL Magnesium (1.8-2.4) mg/dL 02/07/21 02/07/21 02/08/21 Range/Units 23:02 23:55 01:04 Sodium (136-145) mEq/L Potassium (3.5-5.1) mEq/L Chloride (98-107) mEq/L Carbon Dioxide (21-32) mEq/L Anion Gap (5-15) BUN (7-18) mg/dL Creatinine (0.55-1.02) mg/dL Est Cr Clr Drug Dosing mL/min Estimated GFR (MDRD) (>60) mL/min BUN/Creatinine Ratio (14-18) Glucose (70-99) mg/dL POC Glucose 188 H 218 H 234 H (70-99) mg/dL Calcium (8.5-10.1) mg/dL Phosphorus (2.6-4.7) mg/dL Magnesium (1.8-2.4) mg/dL 02/08/21 02/08/21 02/08/21 Range/Units 01:15 01:57 02:59 Sodium 137 (136-145) mEq/L Potassium 3.2 L (3.5-5.1) mEq/L Chloride 107 (98-107) mEq/L Carbon Dioxide 17 L (21-32) mEq/L Anion Gap 16.2 H (5-15) BUN 3 L (7-18) mg/dL Creatinine 0.8 (0.55-1.02) mg/dL Est Cr Clr Drug Dosing 88.32 mL/min Estimated GFR (MDRD) > 60 (>60) mL/min BUN/Creatinine Ratio 3.8 L (14-18) Glucose 236 H (70-99) mg/dL POC Glucose 192 H 184 H (70-99) mg/dL Calcium 7.6 L (8.5-10.1) mg/dL Phosphorus (2.6-4.7) mg/dL Magnesium (1.8-2.4) mg/dL 02/08/21 02/08/21 02/08/21 Range/Units 04:04 04:55 05:13 Sodium 139 (136-145) mEq/L Potassium 3.7 (3.5-5.1) mEq/L Chloride 108 H (98-107) mEq/L Carbon Dioxide 18 L (21-32) mEq/L Anion Gap 16.7 H (5-15) BUN 2 L (7-18) mg/dL Creatinine 0.7 (0.55-1.02) mg/dL Est Cr Clr Drug Dosing 100.94 mL/min Estimated GFR (MDRD) > 60 (>60) mL/min BUN/Creatinine Ratio 2.9 L (14-18) Glucose 210 H (70-99) mg/dL POC Glucose 175 H 228 H (70-99) mg/dL Calcium 8.1 L (8.5-10.1) mg/dL Phosphorus 1.6 L (2.6-4.7) mg/dL Magnesium 1.9 (1.8-2.4) mg/dL 02/08/21 02/08/21 02/08/21 Range/Units 06:04 06:51 08:15 Sodium (136-145) mEq/L Potassium (3.5-5.1) mEq/L Chloride (98-107) mEq/L Carbon Dioxide (21-32) mEq/L Anion Gap (5-15) BUN (7-18) mg/dL Creatinine (0.55-1.02) mg/dL Est Cr Clr Drug Dosing mL/min Estimated GFR (MDRD) (>60) mL/min BUN/Creatinine Ratio (14-18) Glucose (70-99) mg/dL POC Glucose 225 H 192 H 153 H (70-99) mg/dL Calcium (8.5-10.1) mg/dL Phosphorus (2.6-4.7) mg/dL Magnesium (1.8-2.4) mg/dL 02/08/21 02/08/21 02/08/21 Range/Units 09:01 10:21 11:21 Sodium (136-145) mEq/L Potassium (3.5-5.1) mEq/L Chloride (98-107) mEq/L Carbon Dioxide (21-32) mEq/L Anion Gap (5-15) BUN (7-18) mg/dL Creatinine (0.55-1.02) mg/dL Est Cr Clr Drug Dosing mL/min Estimated GFR (MDRD) (>60) mL/min BUN/Creatinine Ratio (14-18) Glucose (70-99) mg/dL POC Glucose 128 H 108 H 167 H (70-99) mg/dL Calcium (8.5-10.1) mg/dL Phosphorus (2.6-4.7) mg/dL Magnesium (1.8-2.4) mg/dL Result Diagrams: 02/07/21 05:52 02/08/21 04:55 Sepsis Event Note - Evaluation Sepsis Screening Result: No Definite Risk - Focused Exam Vital Signs: Vital Signs Temp Pulse Resp BP BP Pulse Ox 02/08/21 11:00 21 H 99 02/08/21 10:01 17 99 02/08/21 10:00 18 106/63 100 02/08/21 09:59 20 100 02/08/21 09:00 18 99 02/08/21 08:01 17 97 02/08/21 08:00 36.8 C 89 16 102/70 98 02/08/21 07:59 18 99 02/08/21 07:00 18 98 02/08/21 06:01 20 98 02/08/21 06:00 20 113/65 99 02/08/21 05:59 20 99 02/08/21 05:00 22 H 100 02/08/21 04:01 19 100 02/08/21 04:00 36.8 C 90 20 114/72 114/72 99 02/08/21 03:59 18 98 02/08/21 03:00 19 98 02/08/21 02:01 22 H 100/66 99 02/08/21 02:00 97 23 H 100/66 100 02/08/21 01:00 19 99 - Problem List Review Problem List Initiated/Reviewed/Updated: Yes - My Orders Last 24 Hours: My Active Orders 02/07/21 14:26 DC Chacko Catheter [Urinary Catheter Removal] [RC] PER UNIT ROUTINE 02/07/21 21:00 Amoxicillin/Clavulanate K [Augmentin 875 MG/125 MG] 1 tab PO Q12HR 02/08/21 Breakfast Consistent Carbohydrate Diet [DIET] 02/08/21 09:15 Insulin Glargine,Hum.Rec.Anlog [Semglee Pen] 6 unit SUBCUT DAILY 02/08/21 10:00 Potassium Phosphates 30 mmole Sodium Chloride 0.9% [Normal Saline] 500 ml IV ASDIRECTED 02/08/21 11:30 Insulin Lispro [HumaLOG] See Protocol SUBCUT WITHMEALSANDBED Sodium Chloride 0.9% [Normal Saline] 1,000 ml IV ASDIRECTED 02/08/21 15:00 CBC WITH AUTO DIFF [HEME] Routine COMPREHENSIVE METABOLIC PN,CMP [CHEM] Routine 02/09/21 05:00 CBC WITH AUTO DIFF [HEME] DAILY COMPREHENSIVE METABOLIC PN,CMP [CHEM] DAILY PHOSPHORUS [CHEM] DAILY 02/10/21 05:00 CBC WITH AUTO DIFF [HEME] DAILY COMPREHENSIVE METABOLIC PN,CMP [CHEM] DAILY 02/11/21 05:00 CBC WITH AUTO DIFF [HEME] DAILY COMPREHENSIVE METABOLIC PN,CMP [CHEM] DAILY 02/12/21 05:00 CBC WITH AUTO DIFF [HEME] DAILY COMPREHENSIVE METABOLIC PN,CMP [CHEM] DAILY 02/13/21 05:00 CBC WITH AUTO DIFF [HEME] DAILY COMPREHENSIVE METABOLIC PN,CMP [CHEM] DAILY - Plan Plan:: 35-year-old female with new onset diabetes presents in diabetic ketoacidosis with a pH less than 7 Diabetic ketoacidosis Metabolic acidosis with partially compensated respiratory alkalosis, improved New onset DM, A1c 12.7 Electrolytes imbalance - hypokalemia, hypophosphoremia External otitis Elevation of TSH, 6.572 with normal fT4. * Approximately 2-day history of shortness of breath with 7-day history of feeling ill before admission * History of gestational diabetes * Family history of type I diabetic in 2 first-degree relatives * Initial serum blood sugar 426 with ketones of 11.22, bicarb of 5 in the ER * Initial anion gap of 32.9 in the ER * Initial venous blood glucose of 6.92 * Received 3 L of normal saline in the emergency department * Anion gap 16.7 and bicarbonate 18 today. * Phos 1.6. Mag 1.9 Plan * Continue to monitor her in ICU * Will discontinue [id number] K and start NS 100 mL/h * will discontinue Insulin drip * Lantus 6 units daily. Adjust insulin based on sugar levels * Insulin ss * Follow potassium closely and replenish as necessary. * replaced phos. No diet until phos increase enough * Repeat TSH and free T4 will likely need to be done as an outpatient. * Nutrition and community outreach manager counseling * DM diet * CODE STATUS: Full code * VTE prophylaxis with Lovenox
[2021-02-08] MEDS ORDERED: Insulin Glargine,Hum.Rec.Anlog 100 UNIT/ML 3 ML Pen SUBCUT SCH (14:46)
[2021-02-08] MEDS ORDERED: Insulin Glargine,Hum.Rec.Anlog 100 UNIT/ML 3 ML Pen SUBCUT ONE (15:00)
[2021-02-08] MEDS ORDERED: Thiamine 100 MG Tab PO SCH (21:00)
[2021-02-08] MEDS ORDERED: Multivitamin Tab PO SCH (21:00)
[2021-02-09] MEDS ORDERED: Insulin Glargine,Hum.Rec.Anlog 100 UNIT/ML 3 ML Pen SUBCUT SCH (09:00)
[2021-02-09] MEDS: Insulin Lispro 100 Unit/ML 3 ML KwikPen SUBCUT SCH ×3 (09:10→17:35)
[2021-02-09] MEDS: Insulin Glargine,Hum.Rec.Anlog 100 UNIT/ML 3 ML Pen SUBCUT SCH (09:12)
[2021-02-09] MEDS: Amoxicillin/Clavulanate K 875-125 MG Tab PO SCH (09:18)
[2021-02-09] MEDS: Enoxaparin 40 MG/0.4 ML Syringe SUBCUT SCH (09:18)
[2021-02-09] MEDS ORDERED: Insulin Glargine,Hum.Rec.Anlog 100 UNIT/ML 3 ML Pen SUBCUT ONE ×3 (09:30→14:22)
[2021-02-09] MEDS ORDERED: Potassium Chloride 10 MEQ in Premix Bag 1 BAG IV SCH (09:30)
[2021-02-09] MEDS: Potassium Chloride 20 MEQ Tab.ER PO SCH ×2 (09:42→11:52)
[2021-02-09] MEDS ORDERED: Potassium Chloride 20 MEQ Tab.ER PO ONE (14:00)
--- NOTE | 2021-02-09 15:36 | PCM.DCSUM1 ---
Discharge Summary - Hospital Course Free Text/Narrative:: 35-year-old female with new onset diabetes presents in diabetic ketoacidosis with a pH less than 7 Diabetic ketoacidosis Metabolic acidosis with partially compensated respiratory alkalosis, improved New onset DM, A1c 12.7 Electrolytes imbalance - hypokalemia, hypophosphoremia External otitis Elevation of TSH, 6.572 with normal fT4. In the hospital, patient was initially treated with a insulin drip which was switched to Lantus subcutaneous and insulin sliding scale. Potassium, magnesium and Phos were given. family living educator counseling was performed. Since the patient was newly diagnosed with diabetes, we do not know how much insulin patient needs. We started Lantus with 6 units. based on her glucose level, she is now on lantus 18 units but her glucose still does not controlled well. So I would like patient to stay 1 more night so that we can adjust insulin. But patient was allowed to go home today for the [facility]. Does not have any complaints. Denies headache, dizziness, nausea, vomiting, fever, chills, chest pain, shortness of breath, abdominal pain, or dysuria. She will be discharged home today to follow-up with PCP in 3 days and legal records clerk in 1 week. She will be discharged on Augmentin for 3 more days for her external otitis. Lantus and diabetic equipments were ordered. Please check blood glucose before each meal and at bedtime and adjust insulin based on sugar levels. If your blood guzman gar glucose level > 400, give insulin 10 units and go to the ER. If your blood glucose level below 60, drink juice and call 911. Please stay on diabetic diet. Do not drive until approval from MD. Call PCP for medical issues. Diagnosis: Stroke: No - Discharge Data Discharge Date: 02/09/21 Discharge Disposition: Home, Self-Care 01 Condition: Good - Referral to Home Health Primary Care Physician: PCP None - Patient Summary/Data Consults: Consultations 02/07/21 10:02 Consult to Diabetic Nurse Specialist [CONS] Routine Recommended Follow-up Testing/Procedures: follow-up with PCP in 3 days and legal records clerk in 1 week. She will be discharged on Augmentin for 3 more days for her external otitis. Please check blood glucose before each meal and at bedtime and adjust insulin based on sugar levels. If your blood sugar glucose level > 400, give insulin 10 units and go to the ER. If your blood glucose level below 60, drink juice and call 911. Please stay on diabetic diet. Do not drive until approval from MD. Call PCP for medical issues. - Patient Instructions Diet: Diabetic Diet Activity: As Tolerated Driving: Do Not Drive (Until approval from MD) - Discharge Plan *PRESCRIPTION DRUG MONITORING PROGRAM REVIEWED*: No *COPY OF PRESCRIPTION DRUG MONITORING REPORT IN PATIENT JAIMIE: No Prescriptions/Med Rec: Amoxicillin/Clavulanate K [Augmentin 875-125 MG] 1 tab PO Q12HR #6 tablet Insulin Lispro [Humalog] See Protocol SUBCUT WITHMEALSANDBED #10 pen Insulin Glargine,Hum.Rec.Anlog [Semglee Pen] 20 unit SUBCUT Q24H #10 pen Home Medications: Home Meds Amoxicillin/Clavulanate K [Augmentin 875-125 MG] 1 tab PO Q12HR #6 tablet 02/09/21 [Rx] Insulin Glargine,Hum.Rec.Anlog [Semglee Pen] 20 unit SUBCUT Q24H #10 pen 02/09/21 [Rx] Insulin Lispro [Humalog] See Protocol SUBCUT WITHMEALSANDBED #10 pen 02/09/21 [Rx] Patient Handouts: Preventing Diabetic Ketoacidosis Forms: ED Department Discharge Referrals: to see, pcp [Other] (in 3 days) to see, endocrinology in 1 week [Other] Lucia Novoa MD [Physician] - 03/02/21 7:45 am (check in at 7:45 stop in 2 weeks prior to sign release of information so [facility] can get old records from a previous provider, if you did not have a previous provider then call [facility] at [phone] to let them know they do not have to get any records.) - Discharge Summary/Plan Comment DC Time >30 min.: Yes Total # of Minutes for Discharge Time: 90mins - General Info Date of Service: 02/09/21 Admission Dx/Problem (Free Text: Admission Diagnosis/Problem Admission Diagnosis/Problem Diabetic ketoacidosis Subjective Update: denies nausea, vomiting, diarrhea, fever, chills, headache, or dizziness. - Review of Systems General: Reports: No Symptoms HEENT: Reports: No Symptoms Pulmonary: Reports: No Symptoms Cardiovascular: Reports: No Symptoms Gastrointestinal: Reports: No Symptoms Genitourinary: Reports: No Symptoms Musculoskeletal: Reports: No Symptoms Skin: Reports: No Symptoms Neurological: Reports: No Symptoms Psychiatric: Reports: No Symptoms - Patient Data Vitals - Most Recent: Last Vital Signs Temp 36.4 C 02/09/21 12:00 Pulse 101 H 02/09/21 12:00 Resp 18 02/09/21 12:00 BP 113/68 02/09/21 12:00 Pulse Ox 100 02/09/21 12:00 Weight - Most Recent: 78.585 kg I&O - Last 24 hours: Intake & Output 02/09/21 02/09/21 02/09/21 06:59 14:59 22:59 Intake Total 100 120 Balance 100 120 Lab Results - Last 24 hrs: Laboratory Results - last 24 hr 02/08/21 02/08/21 02/08/21 Range/Units 14:55 18:23 21:54 WBC (3.98-10.04) K/mm3 RBC (3.98-5.22) M/mm3 Hgb (11.2-15.7) gm/dl Hct (34.1-44.9) % MCV (79.4-94.8) fl MCH (25.6-32.2) pg MCHC (32.2-35.5) g/dl RDW Std Deviation (36.4-46.3) fL Plt Count (182-369) K/mm3 MPV (9.4-12.3) fl Neut % (Auto) (34.0-71.1) % Lymph % (Auto) (19.3-51.7) % [place] % (Auto) (4.7-12.5) % Eos % (Auto) (0.7-5.8) Baso % (Auto) (0.1-1.2) % Neut # (Auto) (1.56-6.13) K/mm3 Lymph # (Auto) (1.18-3.74) K/mm3 [place] # (Auto) (0.24-0.36) K/mm3 Eos # (Auto) (0.04-0.36) K/mm3 Baso # (Auto) (0.01-0.08) K/mm3 Sodium 139 (136-145) mEq/L Potassium 4.0 (3.5-5.1) mEq/L Chloride 107 (98-107) mEq/L Carbon Dioxide 19 L (21-32) mEq/L Anion Gap 17.0 H (5-15) BUN 6 L (7-18) mg/dL Creatinine 0.7 (0.55-1.02) mg/dL Est Cr Clr Drug Dosing 100.94 mL/min Estimated GFR (MDRD) > 60 (>60) mL/min BUN/Creatinine Ratio 8.6 L (14-18) Glucose 293 H (70-99) mg/dL POC Glucose 234 H 310 H (70-99) mg/dL Calcium 7.5 L (8.5-10.1) mg/dL Phosphorus (2.6-4.7) mg/dL Total Bilirubin 0.6 (0.2-1.0) mg/dL AST 15 (15-37) U/L ALT 14 (14-59) U/L Alkaline Phosphatase 108 (46-116) U/L Total Protein 4.9 L (6.4-8.2) g/dl Albumin 2.6 L (3.4-5.0) g/dl Globulin 2.3 gm/dL Albumin/Globulin Ratio 1.1 (1-2) 02/09/21 02/09/21 02/09/21 Range/Units 00:40 05:38 05:38 WBC 3.33 L (3.98-10.04) K/mm3 RBC 3.84 L (3.98-5.22) M/mm3 Hgb 10.4 L (11.2-15.7) gm/dl Hct 30.5 L (34.1-44.9) % MCV 79.4 (79.4-94.8) fl MCH 27.1 (25.6-32.2) pg MCHC 34.1 (32.2-35.5) g/dl RDW Std Deviation 48.3 H (36.4-46.3) fL Plt Count 166 L (182-369) K/mm3 MPV 10.2 (9.4-12.3) fl Neut % (Auto) 40.3 (34.0-71.1) % Lymph % (Auto) 37.8 (19.3-51.7) % [place] % (Auto) 15.0 H (4.7-12.5) % Eos % (Auto) 5.7 (0.7-5.8) Baso % (Auto) 0.9 (0.1-1.2) % Neut # (Auto) 1.34 L (1.56-6.13) K/mm3 Lymph # (Auto) 1.26 (1.18-3.74) K/mm3 [place] # (Auto) 0.50 H (0.24-0.36) K/mm3 Eos # (Auto) 0.19 (0.04-0.36) K/mm3 Baso # (Auto) 0.03 (0.01-0.08) K/mm3 Sodium 136 (136-145) mEq/L Potassium 2.9 L (3.5-5.1) mEq/L Chloride 104 (98-107) mEq/L Carbon Dioxide 23 (21-32) mEq/L Anion Gap 11.9 (5-15) BUN 7 (7-18) mg/dL Creatinine 0.6 (0.55-1.02) mg/dL Est Cr Clr Drug Dosing 117.76 mL/min Estimated GFR (MDRD) > 60 (>60) mL/min BUN/Creatinine Ratio 11.7 L (14-18) Glucose 304 H (70-99) mg/dL POC Glucose 197 H (70-99) mg/dL Calcium 8.1 L (8.5-10.1) mg/dL Phosphorus 4.1 (2.6-4.7) mg/dL Total Bilirubin 0.5 (0.2-1.0) mg/dL AST 10 L (15-37) U/L ALT 13 L (14-59) U/L Alkaline Phosphatase 100 (46-116) U/L Total Protein 4.8 L (6.4-8.2) g/dl Albumin 2.3 L (3.4-5.0) g/dl Globulin 2.5 gm/dL Albumin/Globulin Ratio 0.9 L (1-2) 02/09/21 02/09/21 02/09/21 Range/Units 06:53 09:47 11:49 WBC 3.77 L (3.98-10.04) K/mm3 RBC 4.74 (3.98-5.22) M/mm3 Hgb 12.9 D (11.2-15.7) gm/dl Hct 37.5 (34.1-44.9) % MCV 79.1 L (79.4-94.8) fl MCH 27.2 (25.6-32.2) pg MCHC 34.4 (32.2-35.5) g/dl RDW Std Deviation 49.6 H (36.4-46.3) fL Plt Count 186 (182-369) K/mm3 MPV 9.9 (9.4-12.3) fl Neut % (Auto) 50.0 (34.0-71.1) % Lymph % (Auto) 31.6 (19.3-51.7) % [place] % (Auto) 13.3 H (4.7-12.5) % Eos % (Auto) 4.0 (0.7-5.8) Baso % (Auto) 0.8 (0.1-1.2) % Neut # (Auto) 1.89 (1.56-6.13) K/mm3 Lymph # (Auto) 1.19 (1.18-3.74) K/mm3 [place] # (Auto) 0.50 H (0.24-0.36) K/mm3 Eos # (Auto) 0.15 (0.04-0.36) K/mm3 Baso # (Auto) 0.03 (0.01-0.08) K/mm3 Sodium (136-145) mEq/L Potassium (3.5-5.1) mEq/L Chloride (98-107) mEq/L Carbon Dioxide (21-32) mEq/L Anion Gap (5-15) BUN (7-18) mg/dL Creatinine (0.55-1.02) mg/dL Est Cr Clr Drug Dosing mL/min Estimated GFR (MDRD) (>60) mL/min BUN/Creatinine Ratio (14-18) Glucose (70-99) mg/dL POC Glucose 294 H 325 H (70-99) mg/dL Calcium (8.5-10.1) mg/dL Phosphorus (2.6-4.7) mg/dL Total Bilirubin (0.2-1.0) mg/dL AST (15-37) U/L ALT (14-59) U/L Alkaline Phosphatase (46-116) U/L Total Protein (6.4-8.2) g/dl Albumin (3.4-5.0) g/dl Globulin gm/dL Albumin/Globulin Ratio (1-2) 02/09/21 Range/Units 14:25 WBC (3.98-10.04) K/mm3 RBC (3.98-5.22) M/mm3 Hgb (11.2-15.7) gm/dl Hct (34.1-44.9) % MCV (79.4-94.8) fl MCH (25.6-32.2) pg MCHC (32.2-35.5) g/dl RDW Std Deviation (36.4-46.3) fL Plt Count (182-369) K/mm3 MPV (9.4-12.3) fl Neut % (Auto) (34.0-71.1) % Lymph % (Auto) (19.3-51.7) % [place] % (Auto) (4.7-12.5) % Eos % (Auto) (0.7-5.8) Baso % (Auto) (0.1-1.2) % Neut # (Auto) (1.56-6.13) K/mm3 Lymph # (Auto) (1.18-3.74) K/mm3 [place] # (Auto) (0.24-0.36) K/mm3 Eos # (Auto) (0.04-0.36) K/mm3 Baso # (Auto) (0.01-0.08) K/mm3 Sodium 134 L (136-145) mEq/L Potassium 4.0 (3.5-5.1) mEq/L Chloride 99 (98-107) mEq/L Carbon Dioxide 22 (21-32) mEq/L Anion Gap 17.0 H (5-15) BUN 13 (7-18) mg/dL Creatinine 0.7 (0.55-1.02) mg/dL Est Cr Clr Drug Dosing 100.94 mL/min Estimated GFR (MDRD) > 60 (>60) mL/min BUN/Creatinine Ratio 18.6 H (14-18) Glucose 353 H (70-99) mg/dL POC Glucose (70-99) mg/dL Calcium 8.1 L (8.5-10.1) mg/dL Phosphorus (2.6-4.7) mg/dL Total Bilirubin (0.2-1.0) mg/dL AST (15-37) U/L ALT (14-59) U/L Alkaline Phosphatase (46-116) U/L Total Protein (6.4-8.2) g/dl Albumin (3.4-5.0) g/dl Globulin gm/dL Albumin/Globulin Ratio (1-2) Med Orders - Current: Current Medications Acetaminophen (Acetaminophen 325 Mg Tab) 650 mg PO Q4H PRN PRN Reason: Pain/Fever Last Admin: 02/07/21 23:58 Dose: 650 mg Documented by: Amoxicillin/Clavulanate Potassium (Amoxicillin/Clavulanate K 875-125 Mg Tab) 1 tab PO Q12HR [facility] Stop: 02/12/21 23:59 Last Admin: 02/09/21 09:18 Dose: 1 tab Documented by: Enoxaparin Sodium (Enoxaparin 40 Mg/0.4 Ml Syringe) 40 mg SUBCUT DAILY [facility] Last Admin: 02/09/21 09:18 Dose: 40 mg Documented by: Sodium Chloride (Normal Saline) 1,000 mls @ 100 mls/hr IV ASDIRECTED [facility] Insulin Glargine (Insulin Glargine,Hum.Rec.Anlog 100 Unit/Ml 3 Ml Pen) 18 unit SUBCUT Q24H [facility] Insulin Human Lispro (Insulin Lispro 100 Unit/Ml 3 Ml Kwikpen) 0 unit SUBCUT WITHMEALSANDBED [facility]; Protocol Last Admin: 02/09/21 12:08 Dose: 8 units Documented by: Multivitamins/Minerals/Vitamin C (Multivitamin Tab) 1 tab PO BEDTIME [facility] Last Admin: 02/08/21 20:42 Dose: 1 tab Documented by: Ondansetron HCl (Ondansetron 4 Mg/2 Ml Sdv) 4 mg IV Q4H PRN PRN Reason: Nausea/Vomiting Last Admin: 02/08/21 05:18 Dose: 4 mg Documented by: Sodium Chloride (Sodium Chloride 0.9% 10 Ml Syringe) 10 ml FLUSH ASDIRECTED PRN PRN Reason: Keep Vein Open Last Admin: 02/05/21 08:37 Dose: 10 ml Documented by: Thiamine HCl (Thiamine 100 Mg Tab) 100 mg PO BEDTIME [facility] Last Admin: 02/08/21 20:42 Dose: 100 mg Documented by: Discontinued Medications Enoxaparin Sodium (Enoxaparin 40 Mg/0.4 Ml Syringe) 40 mg SUBCUT DAILY [facility] Last Admin: 02/06/21 09:18 Dose: 40 mg Documented by: Sodium Chloride (Normal Saline) 2,000 mls @ 1,000 mls/hr IV .BOLUS [facility] Last Admin: 02/05/21 08:37 Dose: 1,000 mls/hr Documented by: Lactated Ringer's (Ringers, Lactated) 1,000 mls @ 1,000 mls/hr IV .BOLUS ONE Stop: 02/05/21 11:48 Last Admin: 02/05/21 10:58 Dose: 1,000 mls/hr Documented by: Lactated Ringer's (Ringers, Lactated) 1,000 mls @ 1,000 mls/hr IV .BOLUS ONE Stop: 02/05/21 13:14 Last Admin: 02/05/21 12:20 Dose: 1,000 mls/hr Documented by: Insulin Human Regular 100 unit (/ Sodium Chloride) 100 mls @ 7.657 mls/hr IV TITRATE [facility]; Protocol Last Titration: 02/08/21 09:10 Dose: 0.03 units/kg/hr, 2 mls/hr Documented by: Potassium Chloride/Sodium Chloride (1/2 Ns With 20 Meq Kcl) 1,000 mls @ 500 mls/hr IV ASDIRECTED [facility] Last Admin: 02/05/21 14:01 Dose: 500 mls/hr Documented by: Sodium Bicarbonate 100 meq/Potassium Chloride 20 meq/Sterile Water 510 mls @ 255 mls/hr IV ONETIME ONE Stop: 02/05/21 15:59 Last Admin: 02/05/21 15:17 Dose: 255 mls/hr Documented by: Potassium Chloride 10 meq/ (Premix) 100 mls @ 100 mls/hr IV Q1H [facility] Stop: 02/05/21 18:59 Last Admin: 02/05/21 21:11 Dose: 100 mls/hr Documented by: Potassium Chloride/Dextrose/Sod Cl (D5 1/2 Ns W/ 20 Meq/L Kcl) 1,000 mls @ 200 mls/hr IV ASDIRECTED [facility] Last Admin: 02/05/21 22:20 Dose: 200 mls/hr Documented by: Potassium Chloride 10 meq/ (Premix) 100 mls @ 100 mls/hr IV Q1H [facility] Stop: 02/05/21 22:59 Last Admin: 02/05/21 22:09 Dose: 100 mls/hr Documented by: Potassium Chloride 10 meq/ (Premix) 100 mls @ 100 mls/hr IV Q1H [facility] Stop: 02/06/21 01:59 Last Admin: 02/06/21 01:16 Dose: 100 mls/hr Documented by: Magnesium Sulfate 4 gm/ Premix 50 mls @ 12.5 mls/hr IV ONETIME ONE Stop: 02/06/21 05:29 Magnesium Sulfate 4 gm/ Premix 50 mls @ 12.5 mls/hr IV ONETIME ONE Stop: 02/06/21 06:59 Last Admin: 02/06/21 02:42 Dose: 12.5 mls/hr Documented by: Sodium Chloride (Normal Saline) Confirm Administered Dose 100 mls @ as directed .ROUTE .STK-MED ONE Stop: 02/06/21 01:21 Last Admin: 02/06/21 02:50 Dose: Not Given Documented by: Potassium Chloride/Dextrose/Sod Cl (D5 1/2 Ns W/ 20 Meq/L Kcl) 1,000 mls @ 150 mls/hr IV ASDIRECTED [facility] Last Infusion: 02/06/21 11:25 Dose: 150 mls/hr Documented by: Potassium Chloride 10 meq/ (Premix) 100 mls @ 100 mls/hr IV Q1H [facility] Stop: 02/06/21 08:44 Last Admin: 02/06/21 02:38 Dose: 100 mls/hr Documented by: Potassium Chloride 10 meq/ (Premix) 100 mls @ 200 mls/hr IV ASDIRECTED [facility] Stop: 02/06/21 06:30 Last Admin: 02/06/21 05:48 Dose: 200 mls/hr Documented by: Potassium Chloride 10 meq/ (Premix) 100 mls @ 100 mls/hr IV Q1H [facility] Stop: 02/06/21 12:59 Last Admin: 02/06/21 12:14 Dose: 100 mls/hr Documented by: Potassium Phosphate 30 mmole/ (Sodium Chloride) 510 mls @ 102 mls/hr IV ONETIME ONE Stop: 02/06/21 18:29 Last Admin: 02/06/21 13:51 Dose: 102 mls/hr Documented by: Potassium Chloride 10 meq/ (Premix) 100 mls @ 100 mls/hr IV Q1H [facility] Stop: 02/06/21 19:29 Last Admin: 02/06/21 19:34 Dose: 100 mls/hr Documented by: Potassium Chloride/Dextrose/Sod Cl (D5 1/2 Ns W/ 40 Meq/L Kcl) 1,000 mls @ 150 mls/hr IV ASDIRECTED [facility] Stop: 02/07/21 13:00 Last Admin: 02/07/21 06:07 Dose: 150 mls/hr Documented by: Potassium Chloride 10 meq/ (Premix) 100 mls @ 100 mls/hr IV Q1H [facility] Stop: 02/07/21 02:29 Last Admin: 02/07/21 01:45 Dose: 100 mls/hr Documented by: Potassium Chloride 10 meq/ (Premix) 100 mls @ 100 mls/hr IV Q1H [facility] Stop: 02/07/21 06:59 Last Admin: 02/07/21 06:03 Dose: 100 mls/hr Documented by: Potassium Chloride 10 meq/ (Premix) 100 mls @ 100 mls/hr IV Q1H [facility] Stop: 02/07/21 10:59 Last Admin: 02/07/21 11:00 Dose: 100 mls/hr Documented by: Potassium Phosphate 30 mmole/ (Sodium Chloride) 510 mls @ 102 mls/hr IV ONETIME ONE Stop: 02/07/21 12:59 Last Admin: 02/07/21 08:08 Dose: 102 mls/hr Documented by: Sodium Chloride 154 meq/Potassium Chloride 40 meq/Dextrose/Water 1,058.5 mls @ 125 mls/hr IV Q8H [facility] Stop: 02/08/21 11:30 Last Admin: 02/08/21 06:08 Dose: 125 mls/hr Documented by: Potassium Chloride 10 meq/ (Premix) 100 mls @ 100 mls/hr IV Q1H [facility] Stop: 02/07/21 22:29 Last Admin: 02/08/21 00:23 Dose: Not Given Documented by: Sodium Chloride (Normal Saline Advbag) Confirm Administered Dose 250 mls @ as directed .ROUTE .STK-MED ONE Stop: 02/07/21 20:16 Last Admin: 02/07/21 20:39 Dose: Not Given Documented by: Potassium Chloride 10 meq/ (Premix) 100 mls @ 100 mls/hr IV Q1H PRN PRN Reason: Hypokalemia Stop: 02/08/21 00:29 Potassium Chloride 10 meq/ (Premix) 100 mls @ 100 mls/hr IV Q1H [facility] Stop: 02/08/21 01:29 Last Admin: 02/08/21 00:40 Dose: 100 mls/hr Documented by: Potassium Chloride 10 meq/ (Premix) 100 mls @ 100 mls/hr IV Q1H PRN PRN Reason: Hypokalemia Stop: 02/08/21 04:30 Last Admin: 02/08/21 04:00 Dose: 100 mls/hr Documented by: Potassium Phosphate 30 mmole/ (Sodium Chloride) 510 mls @ 102 mls/hr IV ASDIRECTED [facility] Stop: 02/08/21 14:59 Last Admin: 02/08/21 10:09 Dose: 102 mls/hr Documented by: Sodium Chloride (Normal Saline) Confirm Administered Dose 1,000 mls @ as directed .ROUTE .STK-MED ONE Stop: 02/08/21 10:27 Last Admin: 02/08/21 10:49 Dose: 25 mls/hr Documented by: Potassium Chloride 10 meq/ (Premix) 100 mls @ 100 mls/hr IV Q1H [facility] Stop: 02/09/21 11:29 Last Admin: 02/09/21 09:41 Dose: 100 mls/hr Documented by: Insulin Glargine (Insulin Glargine,Hum.Rec.Anlog 100 Unit/Ml 3 Ml Pen) 6 unit SUBCUT DAILY [facility] Last Admin: 02/09/21 09:12 Dose: 6 units Documented by: Insulin Glargine (Insulin Glargine,Hum.Rec.Anlog 100 Unit/Ml 3 Ml Pen) 12 unit SUBCUT DAILY [facility] Last Admin: 02/09/21 09:18 Dose: Not Given Documented by: Insulin Glargine (Insulin Glargine,Hum.Rec.Anlog 100 Unit/Ml 3 Ml Pen) 6 unit SUBCUT DAILY [facility] Last Admin: 02/08/21 16:50 Dose: Not Given Documented by: Insulin Glargine (Insulin Glargine,Hum.Rec.Anlog 100 Unit/Ml 3 Ml Pen) 6 unit SUBCUT ONETIME ONE Stop: 02/08/21 15:01 Last Admin: 02/08/21 14:41 Dose: 6 units Documented by: Insulin Glargine (Insulin Glargine,Hum.Rec.Anlog 100 Unit/Ml 3 Ml Pen) 9 unit SUBCUT ONETIME ONE Stop: 02/09/21 09:31 Insulin Glargine (Insulin Glargine,Hum.Rec.Anlog 100 Unit/Ml 3 Ml Pen) 12 unit SUBCUT ONETIME ONE Stop: 02/09/21 09:31 Last Admin: 02/09/21 09:41 Dose: 12 units Documented by: Insulin Human Regular (Insulin Regular, Human 100 Units/Ml 3 Ml Vial) 7 unit IV ONETIME ONE Stop: 02/05/21 13:31 Last Admin: 02/05/21 13:57 Dose: 7 unit Documented by: Potassium Chloride (Potassium Chloride 20 Meq Tab.Er) 40 meq PO Q2HR [facility] Stop: 02/09/21 12:01 Last Admin: 02/09/21 11:52 Dose: 40 meq Documented by: Potassium Chloride (Potassium Chloride 20 Meq Tab.Er) 40 meq PO ONETIME ONE Stop: 02/09/21 14:01 Last Admin: 02/09/21 13:41 Dose: 40 meq Documented by: - Exam Physical Findings Comments:: hysical Exam: General: No acute distress HEENT: Conjunctiva Clear, EOMI, Mucosa Moist & [place]. Left ear external canal erythema but no discharge (improved). Neck: Supple, Trachea Midline, NO JVD Lungs: CTA, normal Respiratory Effort, no Wheezing Cardiovascular: Regular Rate, Regular Rhythm GI/Abdominal Exam: Normal Bowel Sounds, Soft, Non-Tender, No Organomegaly, No Distention, No Abnormal Bruit, No Mass Extremities: Normal Inspection, Non-Tender, No Pedal Edema, Normal Capillary Refill Skin: Warm, Dry, Intact Neurology: A+O x 3, no focal neurological deficits Psychiatric: Normal Mood
[2021-02-09 16:36] VITALS: BP 98/72; PULSE 94
[2021-02-10] MEDS ORDERED: Insulin Glargine,Hum.Rec.Anlog 100 UNIT/ML 3 ML Pen SUBCUT SCH (07:00)
== END 2021-02-09 18:30 | disposition home or self-care (01) | DRG 420 ==
LOC: JD.ED 07:39 → JD.ICU 12:24
PROVIDERS: ADMIT Family Medicine; ATTEND Family Medicine
PROC: 02HV33Z Insertion of Infusion Device into Superior Vena Cava, Percutaneous Approach (ICD-10-PCS; principal; 2021-02-06)
PROC: 02PYX3Z Removal of Infusion Device from Great Vessel, External Approach (ICD-10-PCS; 2021-02-08)
DX: E11.10 Type 2 diabetes mellitus with ketoacidosis without coma (principal); Z20.822 Contact with and (suspected) exposure to COVID-19; E87.3 Alkalosis; H60.90 Unspecified otitis externa, unspecified ear; E87.6 Hypokalemia; E83.39 Other disorders of phosphorus metabolism; Z86.19 Personal history of other infectious and parasitic diseases; Z83.3 Family history of diabetes mellitus
CPT/HCPCS: 0241U; 36415; 36600; 51702; 71045; 71045-26; 80048; 80053; 80306; 81001; 82009; 82800; 82803; 82947; 83036; 83735; 83930; 84100; 84439; 84443; 85025; 85610; 85730; A4217; A9270-GY; J1650; J1815; J1815-GY; J2405; J3475; J3480; J3490; J7030; J7040; J7042; J7120; J7131

== ENCOUNTER 2022-12-01 14:00 | Emergency (ER) | payer BC, OTHER ==
[2022-12-01] MEDS ORDERED: Sodium Chloride 0.9% 10 ML Syringe FLUSH PRN (14:09)
[2022-12-01] MEDS ORDERED: Sodium Chloride 0.9% 1,000 ML IV STA (14:09)
[2022-12-01] MEDS: 50% Dextrose in Water 50 ML Syringe IVPUSH ONE ×2 (14:13→15:24)
[2022-12-01 14:25] VITALS: PULSE 97
[2022-12-01 15:58] LABS: BASOPHILS ABSOLUTE AUTO 0.1 K/mm3 (0.0-0.2); BASOPHILS PERCENT AUTO 0.4 % (0.0-1.0); EOSINOPHILS ABSOLUTE AUTO 0.1 K/mm3 (0.0-0.4); EOSINOPHILS PERCENT AUTO 0.4 % (0.0-6.0); HEMATOCRIT 42.1 % (37.0-47.0); HEMOGLOBIN 13.8 gm/dl (12.0-16.0); IMMATURE GRAN ABSOLUTE AUTO 0.09 K/mm3 (0.00-0.05); IMMATURE GRAN PERCENT AUTO 0.4 % (0.0-0.4); LYMPHOCYTES ABSOLUTE AUTO 1.3 K/mm3 (1.0-4.8); LYMPHOCYTES PERCENT AUTO 5.9 % (24.0-44.0); MEAN CORPUSCULAR HEMOGLOBIN 28.8 pg (28.0-32.0); MEAN CORPUSCULAR HGB CONC 32.8 g/dl (32.0-36.0); MEAN CORPUSCULAR VOLUME 87.9 fl (83.0-99.0); MEAN PLATELET VOLUME 10.5 fl (9.4-12.3); MONOCYTES ABSOLUTE AUTO 1.1 K/mm3 (0.0-0.8); MONOCYTES PERCENT AUTO 4.8 % (0.0-8.0); NEUTROPHILS ABSOLUTE AUTO 19.6 K/mm3 (1.8-7.7); NEUTROPHILS PERCENT AUTO 88.1 % (41.0-71.0); PLATELET COUNT,PLT 266 K/mm3 (150-400); RED BLOOD CELL COUNT 4.79 M/mm3 (4.10-5.30); WHITE BLOOD CELL COUNT,WBC 22.28 K/mm3 (3.9-11.3)
[2022-12-01 16:19] LABS: A/G RATIO 1.1 (1-2); ALANINE AMINOTRANSFERASE,ALT 11 U/L (14-59); ALBUMIN 3.9 g/dl (3.4-5.0); ALKALINE PHOSPHATASE 60 U/L (46-116); ANION GAP 13.5 (5-15); ASPARTATE AMNIOTRANSFERASE,AST 17 U/L (15-37); BILIRUBIN TOTAL 0.2 mg/dL (0.2-1.0); BLOOD UREA NITROGEN,BUN 14 mg/dL (7-18); BUN/CREATININE RATIO 17.5 (14-18); CALCIUM 8.5 mg/dL (8.5-10.1); CARBON DIOXIDE,CO2 26 mEq/L (21-32); CHLORIDE,CL 103 mEq/L (98-107); CREATININE 0.8 mg/dL (0.55-1.02); ESTIMATED GFR 97 mL/min (>60); GLUCOSE RANDOM 66 mg/dL (70-99); POTASSIUM,K 3.5 mEq/L (3.5-5.1); PROTEIN TOTAL,TP 7.4 g/dl (6.4-8.2); SODIUM,NA 139 mEq/L (136-145)
[2022-12-01 18:46] VITALS: BP 106/65
== END 2022-12-01 18:35 | disposition home or self-care (01) ==
LOC: JD.ED 14:00
DX: R56.9 Unspecified convulsions (principal); E10.65 Type 1 diabetes mellitus with hyperglycemia
CPT/HCPCS: 36415; 80053; 82947; 83735; 85025; 99285; J3490

== ENCOUNTER 2024-03-16 08:06 | Emergency (ER) | payer BC ==
[2024-03-16 09:05] LABS: BASOPHILS PERCENT AUTO 0.4 % (0.0-1.0); EOSINOPHILS ABSOLUTE AUTO 0.2 K/mm3 (0.0-0.4); EOSINOPHILS PERCENT AUTO 1.8 % (0.0-6.0); HEMATOCRIT 39.7 % (37.0-47.0); HEMOGLOBIN 12.8 gm/dl (12.0-16.0); IMMATURE GRAN ABSOLUTE AUTO 0.03 K/mm3 (0.00-0.05); IMMATURE GRAN PERCENT AUTO 0.3 % (0.0-0.4); LYMPHOCYTES ABSOLUTE AUTO 2.1 K/mm3 (1.0-4.8); LYMPHOCYTES PERCENT AUTO 21.7 % (24.0-44.0); MEAN CORPUSCULAR HEMOGLOBIN 27.4 pg (28.0-32.0); MEAN CORPUSCULAR HGB CONC 32.2 g/dl (32.0-36.0); MEAN PLATELET VOLUME 10.2 fl (9.4-12.3); MONOCYTES ABSOLUTE AUTO 0.7 K/mm3 (0.0-0.8); MONOCYTES PERCENT AUTO 7.5 % (0.0-8.0); NEUTROPHILS ABSOLUTE AUTO 6.7 K/mm3 (1.8-7.7); NEUTROPHILS PERCENT AUTO 68.3 % (41.0-71.0); RED BLOOD CELL COUNT 4.68 M/mm3 (4.10-5.30); WHITE BLOOD CELL COUNT,WBC 9.76 K/mm3 (3.9-11.3)
[2024-03-16 09:07] LABS: MEAN CORPUSCULAR VOLUME 84.8 fl (83.0-99.0); PLATELET COUNT,PLT 356 K/mm3 (150-400)
[2024-03-16] MEDS: Acetaminophen 325 MG Tab PO ONE (09:07)
[2024-03-16 09:39] LABS: A/G RATIO 1.1 (1-2); ALBUMIN 3.5 g/dl (3.4-5.0); ANION GAP 11.6 (5-15); BILIRUBIN TOTAL 0.3 mg/dL (0.2-1.0); BUN/CREATININE RATIO 17.5 (14-18); CALCIUM 8.5 mg/dL (8.5-10.1); CREATININE 0.8 mg/dL (0.55-1.02); EST CRCL DRUG DOSING (CG) 85.8 mL/min; POTASSIUM,K 3.6 mEq/L (3.5-5.1); PROTEIN TOTAL,TP 6.7 g/dl (6.4-8.2); TSH 5.092 uIU/mL (0.358-3.74)
[2024-03-16 10:04] LABS: T4 FREE 0.83 ng/dL (0.76-1.46)
[2024-03-16 11:26] LABS: APPEARANCE,URINE CLEAR (Clear); BILIRUBIN,URINE NEGATIVE (Negative); COLOR,URINE YELLOW (Yellow); GLUCOSE,URINE NEGATIVE (Negative); KETONES,URINE NEGATIVE (Negative); LEUKOCYTE ESTERASE,URINE NEGATIVE (Negative); NITRITE,URINE NEGATIVE (Negative); OCCULT BLOOD,URINE NEGATIVE (Negative); PROTEIN,URINE TRACE (Negative); UROBILINOGEN,URINE 0.2 (0.2-1.0)
[2024-03-16 11:37] LABS: BACTERIA,URINE FEW /hpf (FEW); MUCUS,URINE MANY /hpf (FEW); RBC,URINE 0-5 /hpf (0-5); SQUAMOUS EPITHELIAL CELLS,UR 0-5 /hpf (0-5); WBC,URINE 0-5 /hpf (0-5)
[2024-03-16 19:23] VITALS: BP 103/56; PULSE 79
== END 2024-03-16 13:35 | disposition home or self-care (01) ==
LOC: JD.ED 08:06
DX: R56.9 Unspecified convulsions (principal); E10.9 Type 1 diabetes mellitus without complications
CPT/HCPCS: 36415; 70450; 80053; 81001; 81025; 84439; 84443; 85025; 93005; 99285; A9270

== ENCOUNTER 2024-04-05 14:33 | Emergency (ER) | payer BC ==
[2024-04-05] MEDS: 50% Dextrose in Water 50 ML Syringe IVPUSH PRN (14:42)
[2024-04-05 18:34] VITALS: BP 113/63; PULSE 70
== END 2024-04-05 18:25 | disposition home or self-care (01) ==
LOC: JD.ED 14:33
DX: S01.01XA Laceration without foreign body of scalp, initial encounter (principal); E10.649 Type 1 diabetes mellitus with hypoglycemia without coma; Z79.4 Long term (current) use of insulin; Z79.899 Other long term (current) drug therapy; W01.198A Fall on same level from slipping, tripping and stumbling with subsequent striking against other object, initial encounter; Y93.89 Activity, other specified
CPT/HCPCS: 70450; 70450-26; 71045; 71045-26; 82947; 93005; 93010; 96374; 99284; 99285-25